=== PATIENT | male | born 1945 | race Caucasian/White ===

== ENCOUNTER 2017-10-07 22:06 | Emergency (ER) | payer MEDICARE, BC ==
[~2017-10-07] VITALS: Ht 177.8 cm; Wt 99.8 kg
--- NOTE | 2017-10-08 00:57 | NUR ---
PT IN BED. PT IS CONFUSED AND DISORIENTED. URINE HAS BEEN COLLECTED. NO SIGNS OR SYMPTOMS OF DISTRESS HAVE BEEN EXPRESSED OR WITNESSED AT THIS POINT.
[2017-10-08 01:27] LABS: *BILIRUBIN,URIN NEGATIVE (NEGATIVE); *BLOOD, URINE Trace-intact (NEGATIVE); *CLARITY,URINE SLIGHTLY CLOUDY (CLEAR); *COLOR,URINE YELLOW (YELLOW); *KETONES,URINE 1+ (NEGATIVE); *PROTEIN,URINE 2+ (NEGATIVE); *UROBILINOGEN,URINE 0.2 E.U./dl (NORMAL); LEUKOCYTE ESTERASE ,URINE 1+ (NEGATIVE); NITRITE, URINE NEGATIVE (NEGATIVE); UGLUCOSE NEGATIVE (NEGATIVE)
[2017-10-08 01:46] LABS: BACTERIA,URINE FEW /HPF (NONE SEEN); MUCUS,URINE FEW /LPF (0-FEW); SQUAMOUS EPITHELIAL CELL,UR MODERATE /HPF (NONE SEEN); WBC,URINE 50-80 /HPF (0-3); YEAST,URINE MANY /HPF (NONE SEEN)
[2017-10-08] MEDS ORDERED: SULFAMETH/TRIMETH 800/160 MG TABLET PO ONE (02:00)
[2017-10-08] MEDS ORDERED: PHENAZOPYRIDINE HCL 100 MG TABLET PO ONE (02:00)
[2017-10-08] MEDS ORDERED: PHENAZOPYRIDINE HCL 100 MG TABLET ONE (03:06)
[2017-10-08] MEDS ORDERED: SULFAMETH/TRIMETH 800/160 MG TABLET ONE (03:06)
--- NOTE | 2017-10-08 03:15 | NUR ---
PT IN BED, BUT READY FOR DC. CALLED DAUGHTER, RABIA, TO ARRANGE CHEST PAINTING LEADER. LEFT MESSAGE TO CALL BACK OR SIMPLY RETURN TO [facility] ER FOR CHEST PAINTING LEADER.
[2017-10-08] MEDS ORDERED: LORAZEPAM 1 MG TABLET ONE (04:05)
[2017-10-08] MEDS ORDERED: LORAZEPAM 0.5 MG TABLET PO ONE (04:15)
[2017-10-08] MEDS ORDERED: HALOPERIDOL LACTATE 5 MG/1 ML VIAL IM ONE (04:45)
[2017-10-08] MEDS ORDERED: HALOPERIDOL LACTATE 5 MG/1 ML VIAL ONE (04:45)
[2017-10-08] MEDS ORDERED: HALOPERIDOL 0.5 MG TABLET PO ONE (04:45)
--- NOTE | 2017-10-08 04:46 | NUR ---
CALLED DAUGHTER, RAIBA, AGAIN AND LEFT MESSAGE FOR HER TO PLEASE CALL BACK OR SIMPLY COME BACK TO [facility] TO PUBLIC HEALTH ADMINISTRATOR PATIENT. PATIENT IS READY FOR DISCHARGE.
--- NOTE | 2017-10-08 06:15 | NUR ---
PT IN BED. PT QUIETLY RESTING WITH EYES CLOSED. PT IS EASILY AROUSABLE. NO SIGNS OF DISTRESS WITNESSED AT THIS TIME.
--- NOTE | 2017-10-08 07:12 | NUR ---
PT IN BED. PT QUIETLY RESTING WITH EYES CLOSED. GAVE REPORT TO DAY SHIFT NURSE FANNY GORE.
--- NOTE | 2017-10-08 07:15 | NUR ---
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
--- NOTE | 2017-10-08 08:24 | NUR ---
Patient's private caregiver is now here. Patient discharged to home in stable conditon. Written and verbal after care instructions given to private caregiver. Patient's caregiver verbalizes understanding of instructions. Patient left ER with his own walker in slow steady gait.
== END 2017-10-08 08:24 | disposition home or self-care (01) ==
LOC: ER 22:10
DX: N39.0 Urinary tract infection, site not specified (principal); I10 Essential (primary) hypertension; Z88.5 Allergy status to narcotic agent
CPT/HCPCS: 72072; 72100; 87086; A4663; J1630

== ENCOUNTER 2017-10-12 21:16 | Inpatient (IN) | payer MEDICARE, BC ==
[~2017-10-12] VITALS: Ht 177.8 cm; Wt 98.4 kg
[2017-10-12] MEDS ORDERED: QUET25TA PO (22:36)
[2017-10-12] MEDS ORDERED: TRAZ-144 PO (22:36)
[2017-10-12] MEDS ORDERED: MULT-1119 PO (22:36)
[2017-10-12] MEDS ORDERED: ASCO500C18 PO (22:36)
[2017-10-12] MEDS ORDERED: HYDR25TA4 PO (22:36)
[2017-10-12] MEDS ORDERED: TAMS0.4C34 PO (22:36)
[2017-10-12] MEDS ORDERED: INSU100V7 SQ (22:36)
[2017-10-12] MEDS ORDERED: HYDR-3326 PO (22:36)
[2017-10-12] MEDS ORDERED: NAPR500T6 PO (22:36)
[2017-10-12] MEDS ORDERED: AMLO5TAB2 PO (22:36)
[2017-10-12 22:43] LABS: BASOPHILS # (AUTO) 0.1 K/uL (0.0-8.0); BASOPHILS % (AUTO) 1.4 % (0.0-2.0); EOSINOPHILS # (AUTO) 0.3 K/uL (0.0-0.7); EOSINOPHILS % (AUTO) 3.4 % (0.0-7.0); HEMATOCRIT 41.2 % (36.7-47.1); HEMOGLOBIN 13.7 g/dL (12.5-16.3); LYMPHOCYTES # (AUTO) 2.9 K/uL (20.0-40.0); LYMPHOCYTES % (AUTO) 30.8 % (20.5-51.5); MEAN CORPUSCULAR HEMOGLOBIN 28.8 uug (23.8-33.4); MEAN CORPUSCULAR HGB CONC 33 g/dL (32.5-36.3); MEAN CORPUSCULAR VOLUME 86.5 fL (73.0-96.2); MONOCYTES # (AUTO) 0.7 K/uL (2.0-10.0); MONOCYTES % (AUTO) 7.3 % (0.0-11.0); NEUTROPHILS # (AUTO) 5.4 K/uL (1.8-8.9); NEUTROPHILS % (AUTO) 57.1 % (38.5-71.5); PLATELET COUNT (AUTO) 246 K/uL (152-348); RED BLOOD CELL COUNT(AUTO) 4.76 MIL/uL (4.06-5.63); WHITE BLOOD COUNT (AUTO) 9.4 K/uL (3.6-10.2)
[2017-10-12 22:53] LABS: CARBON DIOXIDE 29 mmol/L (21-32); CHLORIDE 97 mmol/L (98-107); CREATININE 1.5 mg/dL (0.6-1.3); GLUCOSE 243 mg/dL (74-106); POTASSIUM 3.2 mmol/L (3.5-5.1); UREA NITROGEN, BLOOD 21 mg/dL (7-18)
[2017-10-12 22:59] LABS: ALANINE AMINOTRANSFERASE 13 U/L (16-63); ALKALINE PHOSPHATASE 85 U/L (50-136); ASPARTATE AMINOTRANSFERASE 11 U/L (15-37); BILIRUBIN,DIRECT 0.1 mg/dL (0.0-0.2); BILIRUBIN,TOTAL 0.3 mg/dL (0.2-1.0); TOTAL PROTEIN, SERUM 7.9 g/dL (6.4-8.2)
[2017-10-12 23:04] LABS: ETHANOL < 3 MG/DL (0-0)
[2017-10-12 23:06] LABS: THYROID STIMULATING HORMONE 0.874 mIU/mL (0.358-3.740)
[2017-10-12] MEDS ORDERED: LORAZEPAM 2 MG/1 ML VIAL ONE (23:07)
[2017-10-12] MEDS ORDERED: LORAZEPAM 2 MG/1 ML VIAL IV ONE (23:15)
--- NOTE | 2017-10-12 23:30 | NUR ---
Patient taken to CT via gurney with transporter. No acute distress noted. VSS.
[2017-10-13] MEDS ORDERED: LORAZEPAM 2 MG/1 ML VIAL ONE (00:11)
[2017-10-13] MEDS ORDERED: LORAZEPAM 2 MG/1 ML VIAL IV ONE (00:15)
[2017-10-13 00:16] LABS: *BILIRUBIN,URIN NEGATIVE (NEGATIVE); *BLOOD, URINE Trace-intact (NEGATIVE); *CLARITY,URINE SLIGHTLY CLOUDY (CLEAR); *COLOR,URINE YELLOW (YELLOW); *KETONES,URINE TRACE (NEGATIVE); *PROTEIN,URINE 2+ (NEGATIVE); *UROBILINOGEN,URINE 0.2 E.U./dl (NORMAL); LEUKOCYTE ESTERASE ,URINE TRACE (NEGATIVE); NITRITE, URINE NEGATIVE (NEGATIVE); PH,URINE 5.5 (5.0-8.0); UGLUCOSE TRACE (NEGATIVE)
[2017-10-13 00:37] LABS: *AMPHETAMINE, URINE NEGATIVE (NEGATIVE); *BARBITURATE, URINE NEGATIVE (NEGATIVE); *CANNABINOID, URINE NEGATIVE (NEGATIVE); *COCCAINE, URINE NEGATIVE (NEGATIVE); *OPIATE, URINE POSITIVE (NEGATIVE); *PHENCYCLIDINE SCREEN,URINE NEGATIVE (NEGATIVE)
[2017-10-13 00:46] LABS: BACTERIA,URINE NONE SEEN /HPF (NONE SEEN); MUCUS,URINE MANY /LPF (0-FEW); SQUAMOUS EPITHELIAL CELL,UR MODERATE /HPF (NONE SEEN); WBC,URINE 80-100 /HPF (0-3); YEAST,URINE MANY /HPF (NONE SEEN)
--- NOTE | 2017-10-13 00:59 | NUR ---
Patient resting in bed, no acute distress noted.
--- NOTE | 2017-10-13 02:20 | NUR ---
Luis Alberto BRITO at bedside for patient evaluation
--- NOTE | 2017-10-13 03:49 | NUR ---
Report given to Bette ESCOBEDO
--- NOTE | 2017-10-13 04:22 | NUR ---
Pt. admitted to MHU , under care of Dr. Chaidez/ Prem Belongs List completed
--- NOTE | 2017-10-13 04:30 | NUR ---
PATIENT ADMITTING V/S BP 151/83MMHG PULSE 79BPM, RESPIRATION 18 BREATHS/MIN O2SAT 99% ORAL TEMP. 97.8F. WILL CONTINUE TO MONITOR CLOSELY.
[2017-10-13] MEDS ORDERED: CEPHALEXIN MONOHYDRATE 500 MG CAPSULE ONE (04:42)
[2017-10-13] MEDS ORDERED: CEPHALEXIN MONOHYDRATE 500 MG CAPSULE PO STA (05:04)
--- NOTE | 2017-10-13 05:22 | NUR ---
AT APPROX 0415, ADMITTED 72 YEAR OLD MALE TO [facility] ON A 5150 HOLD FOR GD. PATIENT WAS BID CAREGIVER TO [facility] DUE TO LOWER BACK PAIN. PER CAREGIVER PT HAS BEEN HAVING MOOD SWINGS, AGITATION, SEVERALLY DEPRESSED, CONFUSION, DISORGANIZED BX THAT IS WORSE AT NIGHT FOR 2 WEEKS. HOLD STARTED ON 10/13/17 AT 0230 AND WILL END ON 10/16/17 AT 0230 FOR GD. PATIENT WAS MEDICALLY CLEARED [facility]; HOWEVER, URINE WAS POSITIVE FOR UTI. K WAS 3/2. HE WAS GIVEN KEFLEX 500MG PO AT 0511. HE ALSO RECEIVED ATIVAN 1MG IV YESTERDAY AL 2328 AND ATIVAN 2MG IV TODAY AT 0016. PATIENT NOTED A/O X 1. CONFUSED DISORGANIZED, HOWEVER, CALM AND COOPERATIVE WITH ADMISSION PROCESS. HE WAS UNABLE TO SIGN ADMISSION PAPER. POOR HISTORIAN FAIR INSIGHT AND JUDGMENT. SKIN ASSESSMENT: A RASH NOTED ON UPPER CHEST, A WELL-HEALED SURGICAL SCAR OF APPROX 5CM LONG IN RIGHT LOWER BACK AND FEW SUPERFICIAL SCRAPES ON HIS LEFT LOWER LEG ANTERIOR ASPECT. PT IS UNDER THE CARE OF DR. RAZO. WE WILL CONTINUE TO MONITOR.
[2017-10-13] MEDS ORDERED: CEPHALEXIN MONOHYDRATE 500 MG CAPSULE PO SCH (06:00)
[2017-10-13] MEDS ORDERED: ACETAMINOPHEN 325 MG TABLET PO PRN (06:45)
[2017-10-13] MEDS ORDERED: MAGNESIUM HYDROXIDE 30 ML LIQUID UDC PO PRN (06:45)
[2017-10-13] MEDS ORDERED: MAG HYDROX/AL HYDROX/SIMETH 30 ML LIQUID UDC PO PRN (06:45)
--- NOTE | 2017-10-13 07:00 | NUR ---
daughter rosy thompson was notify of father's admission to [facility].
[2017-10-13 07:30] VITALS: BP 173/103
[2017-10-13] MEDS: CEPHALEXIN MONOHYDRATE 500 MG CAPSULE PO SCH ×2 (09:32→17:19)
[2017-10-13] MEDS: HYDROCODONE/APAP 5-325MG TABLET PO PRN (13:05)
[2017-10-13] MEDS: CLONAZEPAM 0.5 MG TABLET PO PRN (13:06)
[2017-10-13] MEDS: AMLODIPINE 5 MG TABLET PO SCH (13:06)
--- NOTE | 2017-10-13 14:27 | NUR ---
Initial DC Plan: Patient currently lives at a board and care with his caregiver Devora [[address] [place] [address]; [phone]]. Per Devora, patient can return home when ready, but she thinks he may need a higher level of care. SW will follow up with MD, patient, and patient's caregiver to discuss most appropriate discharge plans. SW will form a safe and proper discharge.
--- NOTE | 2017-10-13 14:51 | NUR ---
Firearms Reporting: MICHELLE submitted Mental Health Report to [employer] on 10/13.
[2017-10-13 16:30] VITALS: BP 161/90
[2017-10-13] MEDS: CLONIDINE HCL 0.1 MG TABLET PO PRN (19:41)
--- NOTE | 2017-10-13 19:45 | NUR ---
RECEIVED PT IN THE MAIN HALLWAY SITTING IN A MICHI CHAIR NEAR THE NURSING STATION. HE WAS NOTED AWAKE A/O X 1. WITH NO CHANGES IN LOC. PATIENT ABLE TO AMBULATED WITH A FRONT WHEEL WALKER; HOWEVER, HE IS UNSTEADY GAIT. UPON INTERVIEW, PT WAS NOTED WITH DEPRESSED MOOD, BLUNTED AFFECTCRYING, HE STATED "I DON'T WANT TO BE A BURDEN TO ANYBODY". "I AM FEELING VERY SAD, PLEASE HELP ME, HELP ME." TEARS WERE SEEN. PT WAS REASSURED AND REDIRECTED. SAFETY EMPHASIS, PT WAS ABLE TO CFS. B/P IS 179/95 AND PULSE 81. PATIENT IN NO ACUTE DISTRESS. CATAPRES 0.1MG PO PRN WAS GIVEN FOR SBP>150MMHG. WE WILL CONTINUE TO MONITOR CLOSELY.
[2017-10-13] MEDS: TAMSULOSIN HCL 0.4 MG CAP.SR.24H PO SCH (20:07)
[2017-10-13] MEDS: TRAZODONE 50 MG TABLET PO SCH (20:07)
[2017-10-13] MEDS: QUETIAPINE FUMARATE 25 MG TABLET PO SCH (20:08)
[2017-10-13] MEDS: MIRTAZAPINE 15 MG TABLET PO SCH (20:08)
[2017-10-13] MEDS: INSULIN GLARGINE,HUM 300 UNITS/3 ML CARTRIDGE SQ SCH (20:54)
--- NOTE | 2017-10-13 21:00 | NUR ---
PATIENT ABLE TO COMPLY WITH WITH MEDICATION REGIMENT AND PLAN OF CARE. HE WAS NOTED CALM AND COOPERATIVE. SNACKS WERE PROVIDE. WILL CONTINUE TO MONITOR CLOSELY.
[2017-10-13 21:13] VITALS: BP 179/95
--- NOTE | 2017-10-13 21:30 | NUR ---
B/P WAS RECHECKED: B/P 161/95MMHG AND PULSE 83BPM/ PT IN NO ACUTE DISTRESS. WILL CONTINUE TO MONITOR.
[2017-10-13 22:13] VITALS: BP 161/95
[2017-10-13] MEDS: TEMAZEPAM 7.5 MG CAPSULE PO PRN (22:33)
--- NOTE | 2017-10-13 22:34 | NUR ---
PATIENT NOTED AWAKE, UNABLE TO FALL ASLEEP. HE DENIED PAIN OR DISCOMFORT AT THIS TIME. TEMAZEPAM 7.5MG PO PRN FOR INSOMNIA WAS OFFERED AND PATIENT ACCEPTED. WILL CONTINUE TO MONITOR CLOSELY.
[2017-10-13] MEDS ORDERED: DEXTROSE 50% 50 ML DISP.SYRIN IV PRN (23:30)
[2017-10-14 03:02] VITALS: BP 148/67
--- NOTE | 2017-10-14 03:03 | NUR ---
RECHECKED PT B/P 148/67 AND PULSE 66BPM. PATIENT ASLEEP IN NO DISTRESS.
[2017-10-14] MEDS: BLOOD SUGAR DIAGNOSTIC 1 EACH STRIP VI SCH ×5 (06:43→20:49)
--- NOTE | 2017-10-14 07:03 | NUR ---
patient slept for approx 5.30 hrs through the night. BS this am is 183. Pt on accuchecks now ACHS with sliding scale. will continue to monitor.
[2017-10-14 07:30] VITALS: BP 135/74
[2017-10-14] MEDS ORDERED: Medication Not On Formulary EA (Multivitamin (Multi Vitamin Daily) 1 EACH) PO SCH (09:00)
[2017-10-14] MEDS: AMLODIPINE 5 MG TABLET PO SCH (09:30)
[2017-10-14] MEDS: MULTIVITAMINS,THERAPEUTIC TABLET PO SCH (09:30)
[2017-10-14] MEDS: ASCORBIC ACID 500 MG TABLET PO SCH (09:30)
[2017-10-14] MEDS: CEPHALEXIN MONOHYDRATE 500 MG CAPSULE PO SCH ×2 (09:31→16:31)
[2017-10-14] MEDS: INSULIN REGULAR, HUMAN 300 UNIT/3 ML VIAL SQ PRN ×2 (12:25→16:47)
[2017-10-14] MEDS: HYDROCODONE/APAP 5-325MG TABLET PO PRN (12:52)
[2017-10-14 15:56] VITALS: BP 160/82
[2017-10-14] MEDS: CLONIDINE HCL 0.1 MG TABLET PO PRN (16:32)
[2017-10-14 20:00] VITALS: BP 158/89
[2017-10-14] MEDS: TAMSULOSIN HCL 0.4 MG CAP.SR.24H PO SCH (20:29)
[2017-10-14] MEDS: QUETIAPINE FUMARATE 25 MG TABLET PO SCH (20:29)
[2017-10-14] MEDS: MIRTAZAPINE 15 MG TABLET PO SCH (20:30)
[2017-10-14] MEDS: TRAZODONE 50 MG TABLET PO SCH (20:30)
[2017-10-14] MEDS: INSULIN GLARGINE,HUM 300 UNITS/3 ML CARTRIDGE SQ SCH (20:34)
[2017-10-14] MEDS ORDERED: CARVEDILOL 6.25 MG TABLET PO ONE (23:30)
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
[2017-10-15] MEDS: BLOOD SUGAR DIAGNOSTIC 1 EACH STRIP VI SCH ×4 (06:32→20:24)
[2017-10-15 07:07] LABS: BASOPHILS # (AUTO) 0.1 K/uL (0.0-8.0); BASOPHILS % (AUTO) 0.9 % (0.0-2.0); EOSINOPHILS # (AUTO) 0.4 K/uL (0.0-0.7); EOSINOPHILS % (AUTO) 4.5 % (0.0-7.0); HEMATOCRIT 36.8 % (36.7-47.1); HEMOGLOBIN 12.2 g/dL (12.5-16.3); LYMPHOCYTES # (AUTO) 2.7 K/uL (20.0-40.0); LYMPHOCYTES % (AUTO) 32.4 % (20.5-51.5); MEAN CORPUSCULAR HEMOGLOBIN 28.7 uug (23.8-33.4); MEAN CORPUSCULAR HGB CONC 33 g/dL (32.5-36.3); MEAN CORPUSCULAR VOLUME 86.9 fL (73.0-96.2); MONOCYTES # (AUTO) 0.6 K/uL (2.0-10.0); MONOCYTES % (AUTO) 7.7 % (0.0-11.0); NEUTROPHILS # (AUTO) 4.5 K/uL (1.8-8.9); NEUTROPHILS % (AUTO) 54.5 % (38.5-71.5); PLATELET COUNT (AUTO) 271 K/uL (152-348); RED BLOOD CELL COUNT(AUTO) 4.24 MIL/uL (4.06-5.63); WHITE BLOOD COUNT (AUTO) 8.2 K/uL (3.6-10.2)
[2017-10-15 07:17] LABS: ALANINE AMINOTRANSFERASE 12 U/L (16-63); ALKALINE PHOSPHATASE 73 U/L (50-136); ASPARTATE AMINOTRANSFERASE 7 U/L (15-37); BILIRUBIN,TOTAL 0.3 mg/dL (0.2-1.0); CARBON DIOXIDE 28 mmol/L (21-32); CHLORIDE 102 mmol/L (98-107); CREATINE KINASE, TOTAL 17 U/L (39-308); CREATININE 1.7 mg/dL (0.6-1.3); GLUCOSE 240 mg/dL (74-106); MAGNESIUM 1.9 mg/dL (1.8-2.4); PHOSPHOROUS 4.5 mg/dL (2.5-4.9); TOTAL PROTEIN, SERUM 6.8 g/dL (6.4-8.2); UREA NITROGEN, BLOOD 28 mg/dL (7-18)
[2017-10-15 07:21] LABS: POTASSIUM 2.8 mmol/L (3.5-5.1)
[2017-10-15] MEDS ORDERED: POTASSIUM CHLORIDE 20 MEQ TAB.PRT.SR PO STA (07:25)
[2017-10-15 07:30] VITALS: BP 121/64
[2017-10-15] MEDS: MULTIVITAMINS,THERAPEUTIC TABLET PO SCH (08:59)
[2017-10-15] MEDS: CARVEDILOL 6.25 MG TABLET PO SCH ×2 (08:59→20:06)
[2017-10-15] MEDS: ASCORBIC ACID 500 MG TABLET PO SCH (09:00)
[2017-10-15] MEDS: CEPHALEXIN MONOHYDRATE 500 MG CAPSULE PO SCH ×2 (09:00→17:00)
[2017-10-15] MEDS: AMLODIPINE 5 MG TABLET PO SCH (09:00)
[2017-10-15] MEDS: HYDROCODONE/APAP 5-325MG TABLET PO PRN ×2 (09:04→22:53)
[2017-10-15] MEDS: INSULIN REGULAR, HUMAN 300 UNIT/3 ML VIAL SQ PRN ×3 (12:24→20:27)
[2017-10-15 15:19] LABS: *BILIRUBIN,URIN NEGATIVE (NEGATIVE); *BLOOD, URINE NEGATIVE (NEGATIVE); *CLARITY,URINE CLEAR (CLEAR); *COLOR,URINE YELLOW (YELLOW); *KETONES,URINE NEGATIVE (NEGATIVE); *PROTEIN,URINE 1+ (NEGATIVE); *UROBILINOGEN,URINE 0.2 E.U./dl (NORMAL); LEUKOCYTE ESTERASE ,URINE 1+ (NEGATIVE); NITRITE, URINE NEGATIVE (NEGATIVE); PH,URINE 5.5 (5.0-8.0); UGLUCOSE NEGATIVE (NEGATIVE)
[2017-10-15 15:25] LABS: BACTERIA,URINE FEW /HPF (NONE SEEN); RBC,URINE 0-3 /HPF (0-3); SQUAMOUS EPITHELIAL CELL,UR FEW /HPF (NONE SEEN); WBC,URINE 20-50 /HPF (0-3)
[2017-10-15 15:49] VITALS: BP 159/88
[2017-10-15] MEDS: CLONIDINE HCL 0.1 MG TABLET PO PRN (17:01)
--- NOTE | 2017-10-15 17:44 | NUR ---
patient remains depressed and in bed , affec flat and mood somatic with c/o back pain continue to monitor
[2017-10-15 19:40] VITALS: BP 138/62
[2017-10-15] MEDS: ATORVASTATIN 10 MG TABLET PO SCH (20:05)
[2017-10-15] MEDS: QUETIAPINE FUMARATE 25 MG TABLET PO SCH (20:05)
[2017-10-15] MEDS: TRAZODONE 50 MG TABLET PO SCH (20:05)
[2017-10-15] MEDS: MIRTAZAPINE 15 MG TABLET PO SCH (20:05)
[2017-10-15] MEDS: TAMSULOSIN HCL 0.4 MG CAP.SR.24H PO SCH (20:06)
[2017-10-15] MEDS: INSULIN GLARGINE,HUM 300 UNITS/3 ML CARTRIDGE SQ SCH (20:28)
[2017-10-15] MEDS: Z GUARD REMEDY PASTE 57 GM TUBE TOP SCH (20:29)
[2017-10-15] MEDS: TEMAZEPAM 7.5 MG CAPSULE PO PRN (22:19)
--- NOTE | 2017-10-15 22:20 | NUR ---
gps: patient unable to sleep. RESTORIL 7.5 mg po given.
--- NOTE | 2017-10-15 22:54 | NUR ---
PATIENT C/O BACK PAIN NORCO 5/325 MG PO GIVEN.
[2017-10-15] MEDS ORDERED: DEXTROSE 50% 50 ML DISP.SYRIN IV PRN (23:00)
--- NOTE | 2017-10-15 23:22 | NUR ---
PATIENT SLEEPING EYE CLOSE PRN EFFECTIVE FOR SLEEP.
--- NOTE | 2017-10-15 23:54 | NUR ---
PATIENT STATED FEELING BETTER NOW. PRN EFFECTIVE.
[2017-10-16] MEDS: BLOOD SUGAR DIAGNOSTIC 1 EACH STRIP VI SCH ×4 (06:08→20:13)
--- NOTE | 2017-10-16 06:18 | NUR ---
REMAIN CALM AND COOPERATIVE.BLOOD SUGAR 130MG/DL THIS MORNING. SLEPT 05:30 HRS THROUGH THE NIGHT AFTER SLEEPING MEDICATION GIVEN. ASSISTED WITH ADL'S. NO BEHAVIOR PROBLEM NOTED.
[2017-10-16 07:30] VITALS: BP 147/86
[2017-10-16] MEDS: MULTIVITAMINS,THERAPEUTIC TABLET PO SCH (09:17)
[2017-10-16] MEDS: ASCORBIC ACID 500 MG TABLET PO SCH (09:17)
[2017-10-16] MEDS: CEPHALEXIN MONOHYDRATE 500 MG CAPSULE PO SCH ×2 (09:17→17:14)
[2017-10-16] MEDS: AMLODIPINE 5 MG TABLET PO SCH (09:17)
[2017-10-16] MEDS: CARVEDILOL 6.25 MG TABLET PO SCH ×2 (09:18→20:12)
[2017-10-16] MEDS: Z GUARD REMEDY PASTE 57 GM TUBE TOP SCH ×2 (09:18→20:16)
[2017-10-16] MEDS: INSULIN REGULAR, HUMAN 300 UNIT/3 ML VIAL SQ PRN ×2 (12:29→17:23)
[2017-10-16] MEDS: HYDROCODONE/APAP 5-325MG TABLET PO PRN (12:48)
[2017-10-16] MEDS: CLONAZEPAM 0.5 MG TABLET PO PRN (14:19)
[2017-10-16 15:38] VITALS: BP 122/71
[2017-10-16] MEDS: ATORVASTATIN 10 MG TABLET PO SCH (20:11)
[2017-10-16] MEDS: QUETIAPINE FUMARATE 25 MG TABLET PO SCH (20:11)
[2017-10-16] MEDS: TRAZODONE 50 MG TABLET PO SCH (20:11)
[2017-10-16] MEDS: MIRTAZAPINE 15 MG TABLET PO SCH (20:11)
[2017-10-16] MEDS: TAMSULOSIN HCL 0.4 MG CAP.SR.24H PO SCH (20:11)
[2017-10-16] MEDS: INSULIN GLARGINE,HUM 300 UNITS/3 ML CARTRIDGE SQ SCH (20:15)
[2017-10-16 20:26] VITALS: BP 155/68
[2017-10-17] MEDS: CLONAZEPAM 0.5 MG TABLET PO PRN ×2 (00:29→13:18)
--- NOTE | 2017-10-17 00:30 | NUR ---
GPS: PATIENT UNABLE TO SLEEP. KLONOPIN 0.5 MG PO GIVEN.
--- NOTE | 2017-10-17 01:30 | NUR ---
GPS: PATIENT SLEEPING EYE CLOSE. PRN EFFECTIVE FOR SLEEP.
--- NOTE | 2017-10-17 06:32 | NUR ---
GPS: REMAIN CALM AND COOPERATIVE WITH MEDICATIONS AND CARE. SLEPT 7:30 HRS THROUGH THE NIGHT. ASSISTED WITH ADL'S. NO AGITATION NOTED.
[2017-10-17] MEDS: BLOOD SUGAR DIAGNOSTIC 1 EACH STRIP VI SCH ×4 (06:42→20:08)
[2017-10-17 07:30] VITALS: BP 151/88
[2017-10-17 08:06] LABS: A/G RATIO 0.9 (0.7-1.7); ALBUMIN 2.9 g/dL (2.9-4.4); ALPHA-1-GLOBULIN 0.2 g/dL (0.0-0.4); ALPHA-2-GLOBULIN 0.6 g/dL (0.4-1.0); GAMMA GLOBULIN 1.3 g/dL (0.4-1.8); GLOBULIN, TOTAL 3.1 g/dL (2.2-3.9); M-SPIKE Not Observed g/dL (Not Observed)
[2017-10-17] MEDS: CEPHALEXIN MONOHYDRATE 500 MG CAPSULE PO SCH ×2 (09:00→16:36)
[2017-10-17] MEDS: AMLODIPINE 5 MG TABLET PO SCH (09:00)
[2017-10-17] MEDS: ASCORBIC ACID 500 MG TABLET PO SCH (09:00)
[2017-10-17] MEDS: Z GUARD REMEDY PASTE 57 GM TUBE TOP SCH ×2 (09:00→20:10)
[2017-10-17] MEDS: MULTIVITAMINS,THERAPEUTIC TABLET PO SCH (09:00)
[2017-10-17] MEDS: CARVEDILOL 6.25 MG TABLET PO SCH ×2 (09:00→20:08)
[2017-10-17] MEDS: HYDROCODONE/APAP 5-325MG TABLET PO PRN ×2 (14:26→23:14)
[2017-10-17 15:12] VITALS: BP 156/64
[2017-10-17] MEDS: INSULIN REGULAR, HUMAN 300 UNIT/3 ML VIAL SQ PRN (16:38)
[2017-10-17 19:45] VITALS: BP 143/71
[2017-10-17] MEDS: INSULIN GLARGINE,HUM 300 UNITS/3 ML CARTRIDGE SQ SCH (20:03)
[2017-10-17] MEDS: INSULIN REGULAR, HUMAN 300 UNITS/3 ML VIAL SQ PRN (20:04)
[2017-10-17] MEDS: MIRTAZAPINE 15 MG TABLET PO SCH (20:07)
[2017-10-17] MEDS: TRAZODONE 50 MG TABLET PO SCH (20:07)
[2017-10-17] MEDS: ATORVASTATIN 10 MG TABLET PO SCH (20:07)
[2017-10-17] MEDS: TAMSULOSIN HCL 0.4 MG CAP.SR.24H PO SCH (20:07)
[2017-10-17] MEDS: QUETIAPINE FUMARATE 25 MG TABLET PO SCH (20:08)
[2017-10-17] MEDS: TEMAZEPAM 7.5 MG CAPSULE PO PRN (22:07)
[2017-10-18] MEDS: BLOOD SUGAR DIAGNOSTIC 1 EACH STRIP VI SCH ×4 (06:39→21:10)
[2017-10-18 07:30] VITALS: BP 140/83
[2017-10-18 07:35] LABS: CARBON DIOXIDE 29 mmol/L (21-32); CHLORIDE 103 mmol/L (98-107); CREATININE 1.5 mg/dL (0.6-1.3); GLUCOSE 101 mg/dL (74-106); POTASSIUM 3.1 mmol/L (3.5-5.1); UREA NITROGEN, BLOOD 32 mg/dL (7-18)
[2017-10-18] MEDS: CARVEDILOL 6.25 MG TABLET PO SCH ×2 (08:42→20:43)
[2017-10-18] MEDS: CEPHALEXIN MONOHYDRATE 500 MG CAPSULE PO SCH ×2 (08:52→17:58)
[2017-10-18] MEDS: MULTIVITAMINS,THERAPEUTIC TABLET PO SCH (08:52)
[2017-10-18] MEDS: AMLODIPINE 5 MG TABLET PO SCH (08:52)
[2017-10-18] MEDS: ASCORBIC ACID 500 MG TABLET PO SCH (08:54)
[2017-10-18] MEDS: Z GUARD REMEDY PASTE 57 GM TUBE TOP SCH ×2 (08:56→21:09)
[2017-10-18] MEDS ORDERED: POTASSIUM CHLORIDE 20 MEQ TAB.PRT.SR PO ONE (09:00)
[2017-10-18] MEDS: INSULIN REGULAR, HUMAN 300 UNIT/3 ML VIAL SQ PRN ×2 (12:28→16:53)
[2017-10-18] MEDS: CLONAZEPAM 0.5 MG TABLET PO PRN (12:55)
[2017-10-18 16:21] VITALS: BP 161/90
[2017-10-18] MEDS: HYDROCODONE/APAP 5-325MG TABLET PO PRN (16:57)
--- NOTE | 2017-10-18 18:34 | NUR ---
RECEIVED Pt IN BED, AWAKE, A/O X 1. Pt IS COOPERATIVE, COMPLIANT WITH MEDS AND CARE STAFF, BUT EXHIBITS CONFUSION AND HAS EPISODES OF RANDOM YELLING, STATING, "I WANT TO GO HOME." Pt IS AMBULATORY WITH MINIMUM ASSISTANCE AND FWW. Pt REFUSED PHYSICAL THERAPY IN THE MORNING. POTASSIUM 40 MEQ GIVEN DUE TO LOW POTASSIUM LEVEL OF 3.1, Pt COMPLAINED OF PAIN LEVEL OF 9/10 AND WAS GIVEN NORCO 5-325 MG PO PRN @ 1657. Pt REPORTED IMPROVEMENT IN PAIN UPON RE-ASSESSMENT.
[2017-10-18 20:07] VITALS: BP 146/76
[2017-10-18] MEDS: TRAZODONE 50 MG TABLET PO SCH (20:39)
[2017-10-18] MEDS: QUETIAPINE FUMARATE 25 MG TABLET PO SCH (20:39)
[2017-10-18] MEDS: ATORVASTATIN 10 MG TABLET PO SCH (20:39)
[2017-10-18] MEDS: MIRTAZAPINE 15 MG TABLET PO SCH (20:40)
[2017-10-18] MEDS: TAMSULOSIN HCL 0.4 MG CAP.SR.24H PO SCH (20:41)
[2017-10-18] MEDS: INSULIN GLARGINE,HUM 300 UNITS/3 ML CARTRIDGE SQ SCH (20:47)
[2017-10-18] MEDS: INSULIN REGULAR, HUMAN 300 UNITS/3 ML VIAL SQ PRN (20:51)
--- NOTE | 2017-10-18 22:00 | NUR ---
received to care, lying in bed, appearing anxious, but pleasant upon approach. was assisted up in the hasmukh chair, at his request. compliant with medications, and staff direction. as of 2199, he remains awake, watching tv. yells out intermittently. all needs provided for. will continue to monitor closely
[2017-10-18] MEDS: TEMAZEPAM 7.5 MG CAPSULE PO PRN (22:12)
--- NOTE | 2017-10-18 22:12 | NUR ---
PRN restoril, given, for insomnia, and assisted back to bed.
--- NOTE | 2017-10-18 23:00 | NUR ---
appears to be asleep. no distress noted. will continue to monitor closely.
--- NOTE | 2017-10-19 06:00 | NUR ---
slept 7 hours. continues to sleep. no distress noted.
[2017-10-19] MEDS: BLOOD SUGAR DIAGNOSTIC 1 EACH STRIP VI SCH ×4 (06:27→20:45)
[2017-10-19 07:30] VITALS: BP 143/72
[2017-10-19] MEDS: CEPHALEXIN MONOHYDRATE 500 MG CAPSULE PO SCH (08:27)
[2017-10-19] MEDS: MULTIVITAMINS,THERAPEUTIC TABLET PO SCH (08:27)
[2017-10-19] MEDS: ASCORBIC ACID 500 MG TABLET PO SCH (08:28)
[2017-10-19] MEDS: CARVEDILOL 6.25 MG TABLET PO SCH ×2 (08:28→20:45)
[2017-10-19] MEDS: AMLODIPINE 5 MG TABLET PO SCH (08:28)
[2017-10-19] MEDS: Z GUARD REMEDY PASTE 57 GM TUBE TOP SCH ×2 (08:29→20:45)
[2017-10-19] MEDS: INSULIN REGULAR, HUMAN 300 UNIT/3 ML VIAL SQ PRN ×2 (12:17→17:38)
[2017-10-19] MEDS: CLONAZEPAM 0.5 MG TABLET PO PRN (13:13)
[2017-10-19 20:10] VITALS: BP 155/84
[2017-10-19] MEDS: QUETIAPINE FUMARATE 25 MG TABLET PO SCH (20:35)
[2017-10-19] MEDS: TRAZODONE 50 MG TABLET PO SCH (20:35)
[2017-10-19] MEDS: MIRTAZAPINE 15 MG TABLET PO SCH (20:36)
[2017-10-19] MEDS: ATORVASTATIN 10 MG TABLET PO SCH (20:36)
[2017-10-19] MEDS: TAMSULOSIN HCL 0.4 MG CAP.SR.24H PO SCH (20:36)
[2017-10-19] MEDS: INSULIN GLARGINE,HUM 300 UNITS/3 ML CARTRIDGE SQ SCH (20:48)
[2017-10-19] MEDS: INSULIN REGULAR, HUMAN 300 UNITS/3 ML VIAL SQ PRN (20:54)
--- NOTE | 2017-10-19 22:00 | NUR ---
received to care, lying in bed, appearing anxious, but pleasant upon approach. yells out intermittently,for no apparent reason, and requires frequent redirection. compliant with medications, and staff direction. as of 2199, he remains awake, yelling out intermittently. all needs provided for. will continue to monitor closely
[2017-10-19] MEDS ORDERED: POTASSIUM CHLORIDE 20 MEQ TAB.PRT.SR PO SCH (22:30)
[2017-10-19] MEDS: TEMAZEPAM 7.5 MG CAPSULE PO PRN (22:34)
--- NOTE | 2017-10-19 22:34 | NUR ---
remains awake, and yelling. PRN restoril was given, at this time, for insomnia. will continue to monitor closely.
[2017-10-19] MEDS: HYDROCODONE/APAP 5-325MG TABLET PO PRN (23:24)
--- NOTE | 2017-10-19 23:24 | NUR ---
remains awake, and yelling. states that he has right thigh pain 03/09. PRN norco was given at this time. will continue to monitor closely.
[2017-10-20] MEDS: CLONAZEPAM 0.5 MG TABLET PO PRN (00:32)
--- NOTE | 2017-10-20 00:32 | NUR ---
pt remains awake, restless, and yelling intermittently. stated he was anxious about being discharged, tomorrow. reassurance and emotional support was provided. also, he was attempting to climb out of bed; pt was assisted up in the hasmukh chair for safety. placed at the nurses station, and given PRN klonopin. kept warm and comfortable. will continue to monitor closely.
--- NOTE | 2017-10-20 06:00 | NUR ---
slept 2.5 hours. continues to sleep. no distress noted.
[2017-10-20] MEDS: BLOOD SUGAR DIAGNOSTIC 1 EACH STRIP VI SCH ×2 (06:32→11:56)
[2017-10-20 07:30] VITALS: BP 110/57
[2017-10-20 07:30] LABS: CARBON DIOXIDE 29 mmol/L (21-32); CHLORIDE 105 mmol/L (98-107); CREATININE 1.6 mg/dL (0.6-1.3); GLUCOSE 120 mg/dL (74-106); POTASSIUM 3.8 mmol/L (3.5-5.1); UREA NITROGEN, BLOOD 33 mg/dL (7-18)
[2017-10-20] MEDS: CARVEDILOL 6.25 MG TABLET PO SCH ×2 (09:00→13:22)
[2017-10-20] MEDS: AMLODIPINE 5 MG TABLET PO SCH ×2 (09:00→13:24)
[2017-10-20] MEDS: Z GUARD REMEDY PASTE 57 GM TUBE TOP SCH (09:14)
[2017-10-20] MEDS: ASCORBIC ACID 500 MG TABLET PO SCH (09:16)
[2017-10-20] MEDS: MULTIVITAMINS,THERAPEUTIC TABLET PO SCH (09:16)
--- NOTE | 2017-10-20 09:37 | NUR ---
DC Note: Patient will be discharged to [facility] [[address] [place] [address]; ] via ambulance at 1pm. SW spoke with Richard from [facility] to confirm discharge plans. Patient is aware and agreeable to discharge plans. Patient's son Fermin [[phone]] is aware and agreeable to discharge plans. Patient will follow up with Dr. Chaidez (psychiatrist) and Dr. Gallito Diehl (sub assembly team worker) at the facility.
[2017-10-20] MEDS: INSULIN REGULAR, HUMAN 300 UNIT/3 ML VIAL SQ PRN (11:58)
[2017-10-20 13:24] VITALS: BP 174/88
--- NOTE | 2017-10-20 13:25 | NUR ---
dc note: pt's bp is 174/88, pulse 64, o2 sat is 95 on RA, respirations 20. Skipped am blood pressure meds due to low bp in am. Administered the norvasc and coreg on d/c due to high blood pressure. Advised FANNY Cao at [facility] that the bp meds were given later in a day, ok to transfer per Kiley. Pt is calm and cooperative. No distress noted. All safety needs are met. Report given. Addendum: 10/20/17 at 1852 by ANG GOFF RN PER PT STATEMENT "I REVCEIVED BOTH, PNEUMO AND FLU SHOT" ADVISED THE SNF NURSE
== END 2017-10-20 13:30 | DRG 885 ==
LOC: ER 21:19 → GPS 10-13 04:08
PROVIDERS: ADMIT Psychiatry & Neurology Psychiatry; ATTEND Internal Medicine
DX: F33.2 Major depressive disorder, recurrent severe without psychotic features (principal); N17.0 Acute kidney failure with tubular necrosis; E11.65 Type 2 diabetes mellitus with hyperglycemia; I50.33 Acute on chronic diastolic (congestive) heart failure; I13.0 Hypertensive heart and chronic kidney disease with heart failure and stage 1 through stage 4 chronic kidney disease, or unspecified chronic kidney disease; N30.90 Cystitis, unspecified without hematuria; E11.22 Type 2 diabetes mellitus with diabetic chronic kidney disease; E66.9 Obesity, unspecified; Z68.31 Body mass index [BMI] 31.0-31.9, adult; Z71.3 Dietary counseling and surveillance; I25.10 Atherosclerotic heart disease of native coronary artery without angina pectoris; N18.2 Chronic kidney disease, stage 2 (mild); Z95.1 Presence of aortocoronary bypass graft; Z79.4 Long term (current) use of insulin; Z87.440 Personal history of urinary (tract) infections; N40.0 Benign prostatic hyperplasia without lower urinary tract symptoms; Z86.718 Personal history of other venous thrombosis and embolism; Z87.81 Personal history of (healed) traumatic fracture; K40.20 Bilateral inguinal hernia, without obstruction or gangrene, not specified as recurrent; Z91.81 History of falling; Z79.899 Other long term (current) drug therapy; E87.6 Hypokalemia; G89.29 Other chronic pain; M54.5 Low back pain; R10.2 Pelvic and perineal pain; M19.90 Unspecified osteoarthritis, unspecified site
CPT/HCPCS: 36415; 71045; 76770; 80307; 83735; 83970; 84100; 84155; 84165; 84443; 85025; 85730; 87086; 93005; 93307; 97116; 97530; A4663; G0480; J1815; J2060

== ENCOUNTER 2017-10-22 19:43 | Inpatient (IN) | payer MEDICARE, BC ==
[~2017-10-22] VITALS: Ht 177.8 cm; Wt 98.9 kg
[~2017-10-22 19:43] MED LIST: AMLO5TAB2 PO; ASCO500C18 PO; HYDR-3326 PO; HYDR25TA4 PO; INSU100V7 SQ; MULT-1119 PO; TAMS0.4C34 PO
[2017-10-22] MEDS ORDERED: OLANZAPINE 10 MG VIAL IM ONE ×4 (20:05→21:33)
[2017-10-22] MEDS ORDERED: LORAZEPAM 2 MG/1 ML VIAL ONE (20:06)
[2017-10-22] MEDS ORDERED: LORAZEPAM 2 MG/1 ML VIAL IM ONE (20:15)
[2017-10-22 21:05] LABS: BASOPHILS # (AUTO) 0.1 K/uL (0.0-8.0); BASOPHILS % (AUTO) 1.2 % (0.0-2.0); EOSINOPHILS # (AUTO) 0.3 K/uL (0.0-0.7); EOSINOPHILS % (AUTO) 3.4 % (0.0-7.0); HEMATOCRIT 39.9 % (36.7-47.1); HEMOGLOBIN 13.3 g/dL (12.5-16.3); LYMPHOCYTES # (AUTO) 2.5 K/uL (20.0-40.0); LYMPHOCYTES % (AUTO) 31.2 % (20.5-51.5); MEAN CORPUSCULAR HEMOGLOBIN 29.1 uug (23.8-33.4); MEAN CORPUSCULAR HGB CONC 33 g/dL (32.5-36.3); MEAN CORPUSCULAR VOLUME 87.4 fL (73.0-96.2); MONOCYTES # (AUTO) 0.6 K/uL (2.0-10.0); MONOCYTES % (AUTO) 7.1 % (0.0-11.0); NEUTROPHILS # (AUTO) 4.5 K/uL (1.8-8.9); NEUTROPHILS % (AUTO) 57.1 % (38.5-71.5); PLATELET COUNT (AUTO) 272 K/uL (152-348); RED BLOOD CELL COUNT(AUTO) 4.56 MIL/uL (4.06-5.63); WHITE BLOOD COUNT (AUTO) 7.9 K/uL (3.6-10.2)
[2017-10-22 21:16] LABS: CARBON DIOXIDE 29 mmol/L (21-32); CHLORIDE 104 mmol/L (98-107); CREATININE 1.8 mg/dL (0.6-1.3); POTASSIUM 3.9 mmol/L (3.5-5.1); UREA NITROGEN, BLOOD 35 mg/dL (7-18)
[2017-10-22 21:19] LABS: GLUCOSE 301 mg/dL (74-106)
[2017-10-22 21:21] LABS: ETHANOL < 3 MG/DL (0-0)
[2017-10-22 21:28] LABS: ALANINE AMINOTRANSFERASE 23 U/L (16-63); ALKALINE PHOSPHATASE 90 U/L (50-136); ASPARTATE AMINOTRANSFERASE 14 U/L (15-37); BILIRUBIN,DIRECT 0.1 mg/dL (0.0-0.2); BILIRUBIN,TOTAL 0.3 mg/dL (0.2-1.0); TOTAL PROTEIN, SERUM 7.7 g/dL (6.4-8.2)
[2017-10-22] MEDS ORDERED: diphenhydrAMINE 50 MG/1 ML VIAL IM ONE (21:30)
[2017-10-22] MEDS ORDERED: diphenhydrAMINE 50 MG/1 ML VIAL ONE (21:32)
[2017-10-22 21:37] LABS: *BILIRUBIN,URIN NEGATIVE (NEGATIVE); *BLOOD, URINE NEGATIVE (NEGATIVE); *COLOR,URINE YELLOW (YELLOW); *KETONES,URINE TRACE (NEGATIVE); *PROTEIN,URINE 1+ (NEGATIVE); *UROBILINOGEN,URINE 0.2 E.U./dl (NORMAL); NITRITE, URINE NEGATIVE (NEGATIVE)
[2017-10-22 21:39] LABS: THYROID STIMULATING HORMONE 1.428 mIU/mL (0.358-3.740)
[2017-10-22 21:49] LABS: *AMPHETAMINE, URINE NEGATIVE (NEGATIVE); *BARBITURATE, URINE NEGATIVE (NEGATIVE); *CANNABINOID, URINE NEGATIVE (NEGATIVE); *COCCAINE, URINE NEGATIVE (NEGATIVE); *OPIATE, URINE POSITIVE (NEGATIVE); *PHENCYCLIDINE SCREEN,URINE NEGATIVE (NEGATIVE)
[2017-10-22 21:51] LABS: *CLARITY,URINE HAZY (CLEAR); LEUKOCYTE ESTERASE ,URINE 1+ (NEGATIVE); UGLUCOSE 2+ (NEGATIVE)
[2017-10-22 21:52] LABS: MUCUS,URINE MANY /LPF (0-FEW); SQUAMOUS EPITHELIAL CELL,UR FEW /HPF (NONE SEEN); WBC,URINE 20-50 /HPF (0-3); YEAST,URINE MODERATE /HPF (NONE SEEN)
[2017-10-22] MEDS ORDERED: CEPHALEXIN MONOHYDRATE 500 MG CAPSULE PO ONE (22:00)
[2017-10-22] MEDS ORDERED: INSULIN REGULAR, HUMAN 1,000 UNITS/10 ML VIAL SUBCUT ONE (22:00)
[2017-10-22] MEDS ORDERED: TRAZ-144 PO (22:02)
[2017-10-22] MEDS ORDERED: MAGN400O6 PO (22:02)
[2017-10-22] MEDS ORDERED: BLOO-140 IN (22:02)
[2017-10-22] MEDS ORDERED: CARV6.25 PO (22:02)
[2017-10-22] MEDS ORDERED: CLON0.1T PO (22:02)
[2017-10-22] MEDS ORDERED: CRANBERRY PO (22:02)
[2017-10-22] MEDS ORDERED: ACET325T53 PO (22:02)
[2017-10-22] MEDS ORDERED: TEMA7.5C2 PO (22:02)
[2017-10-22] MEDS ORDERED: CLON0.5T PO (22:02)
[2017-10-22] MEDS ORDERED: BISA10SU12 RC (22:02)
[2017-10-22] MEDS ORDERED: QUET50TA PO (22:02)
[2017-10-22] MEDS ORDERED: POTA-88 PO (22:02)
[2017-10-22] MEDS ORDERED: NA P133E RC (22:02)
[2017-10-22] MEDS ORDERED: ATOR10TA PO (22:02)
[2017-10-22] MEDS ORDERED: MIRT15TA PO (22:02)
[2017-10-22] MEDS ORDERED: CEPHALEXIN MONOHYDRATE 500 MG CAPSULE ONE (22:05)
[2017-10-22] MEDS ORDERED: INSULIN REGULAR, HUMAN 300 UNIT/3 ML VIAL ONE (22:06)
[2017-10-23] MEDS ORDERED: MAG HYDROX/AL HYDROX/SIMETH 30 ML LIQUID UDC PO PRN (00:15)
[2017-10-23] MEDS ORDERED: CLONAZEPAM 0.5 MG TABLET PO SCH (00:15)
[2017-10-23] MEDS ORDERED: MAGNESIUM HYDROXIDE 30 ML LIQUID UDC PO PRN ×2 (00:15→11:15)
[2017-10-23] MEDS: TEMAZEPAM 7.5 MG CAPSULE PO PRN (00:38)
[2017-10-23] MEDS: ACETAMINOPHEN 325 MG TABLET PO PRN (03:03)
[2017-10-23] MEDS: CLONAZEPAM 0.5 MG TABLET PO PRN ×2 (03:03→16:43)
[2017-10-23 07:30] VITALS: BP 133/66
[2017-10-23] MEDS ORDERED: DEXTROSE 50% 50 ML DISP.SYRIN IV PRN (08:00)
[2017-10-23] MEDS: INSULIN REGULAR, HUMAN 300 UNITS/3 ML VIAL SQ PRN (08:23)
[2017-10-23] MEDS: BLOOD SUGAR DIAGNOSTIC 1 EACH STRIP VI SCH ×4 (08:23→21:00)
[2017-10-23] MEDS ORDERED: BISACODYL 10 MG SUPP.RECT RC PRN (11:15)
[2017-10-23] MEDS: AMLODIPINE 5 MG TABLET PO SCH (11:15)
[2017-10-23] MEDS ORDERED: HYDROCODONE/APAP 5-325MG TABLET PO PRN (11:15)
[2017-10-23] MEDS ORDERED: FLEET ENEMA 133 ML BOTTLE RC PRN (11:15)
[2017-10-23] MEDS: CARVEDILOL 6.25 MG TABLET PO SCH ×2 (11:15→17:04)
[2017-10-23] MEDS ORDERED: CLONIDINE HCL 0.1 MG TABLET PO PRN (11:15)
[2017-10-23] MEDS ORDERED: ACETAMINOPHEN 325 MG TABLET PO PRN (11:15)
[2017-10-23] MEDS: CEPHALEXIN MONOHYDRATE 500 MG CAPSULE PO SCH ×2 (11:30→21:00)
[2017-10-23] MEDS: INSULIN REGULAR, HUMAN 300 UNIT/3 ML VIAL SQ PRN ×2 (11:57→16:47)
[2017-10-23] MEDS ORDERED: OLANZAPINE 10 MG VIAL IM STA (14:13)
[2017-10-23] MEDS ORDERED: diphenhydrAMINE 50 MG/1 ML VIAL IM STA (14:13)
[2017-10-23] MEDS ORDERED: LORAZEPAM 2 MG/1 ML VIAL IM STA (14:13)
[2017-10-23] MEDS: DIVALPROEX 125 MG TABLET.DR PO SCH ×2 (14:19→16:42)
[2017-10-23 15:35] VITALS: BP 169/83
[2017-10-23 20:30] VITALS: BP 148/72
[2017-10-23] MEDS: ATORVASTATIN 10 MG TABLET PO SCH (21:00)
[2017-10-23] MEDS: TAMSULOSIN HCL 0.4 MG CAP.SR.24H PO SCH (21:00)
[2017-10-23] MEDS: MIRTAZAPINE 15 MG TABLET PO SCH (21:00)
[2017-10-23] MEDS: OLANZAPINE ZYDIS 5 MG TAB.RAPDIS PO SCH (21:00)
[2017-10-24] MEDS: BLOOD SUGAR DIAGNOSTIC 1 EACH STRIP VI SCH ×4 (07:38→20:20)
[2017-10-24 08:00] VITALS: BP 139/63
[2017-10-24] MEDS: CARVEDILOL 6.25 MG TABLET PO SCH ×2 (08:00→17:03)
[2017-10-24] MEDS: AMLODIPINE 5 MG TABLET PO SCH ×2 (08:11→14:41)
[2017-10-24] MEDS: DIVALPROEX 125 MG TABLET.DR PO SCH ×3 (08:11→16:09)
[2017-10-24] MEDS: CEPHALEXIN MONOHYDRATE 500 MG CAPSULE PO SCH ×3 (08:11→20:31)
[2017-10-24] MEDS: ASCORBIC ACID 500 MG TABLET PO SCH ×2 (08:12→14:41)
[2017-10-24] MEDS: MULTIVITAMINS,THERAPEUTIC TABLET PO SCH ×2 (08:12→14:41)
[2017-10-24] MEDS ORDERED: Medication Not On Formulary EA (Multivitamin (Multi Vitamin Daily) 1 EACH) PO SCH (09:00)
[2017-10-24] MEDS ORDERED: CRANBERRY 1680 MG PO SCH (09:00)
[2017-10-24] MEDS ORDERED: Medication Not On Formulary EA (Ascorbic Acid (Vitamin C) 500 MG) PO SCH (09:00)
[2017-10-24] MEDS: INSULIN REGULAR, HUMAN 300 UNIT/3 ML VIAL SQ PRN ×2 (11:35→16:17)
[2017-10-24] MEDS: CLONAZEPAM 0.5 MG TABLET PO PRN (12:56)
[2017-10-24 16:00] VITALS: BP 153/85
[2017-10-24] MEDS: ATORVASTATIN 10 MG TABLET PO SCH (20:31)
[2017-10-24] MEDS: OLANZAPINE ZYDIS 5 MG TAB.RAPDIS PO SCH (20:32)
[2017-10-24] MEDS: MIRTAZAPINE 15 MG TABLET PO SCH (20:32)
[2017-10-24] MEDS: TAMSULOSIN HCL 0.4 MG CAP.SR.24H PO SCH (20:32)
[2017-10-24] MEDS: INSULIN REGULAR, HUMAN 300 UNITS/3 ML VIAL SQ PRN (20:45)
[2017-10-24] MEDS: TEMAZEPAM 7.5 MG CAPSULE PO PRN (21:50)
[2017-10-24] MEDS: ACETAMINOPHEN 325 MG TABLET PO PRN (22:25)
[2017-10-25] MEDS: CLONAZEPAM 0.5 MG TABLET PO PRN (00:18)
[2017-10-25] MEDS: BLOOD SUGAR DIAGNOSTIC 1 EACH STRIP VI SCH ×4 (06:50→20:18)
[2017-10-25 07:30] VITALS: BP 141/82
[2017-10-25 07:33] LABS: BASOPHILS # (AUTO) 0.1 K/uL (0.0-8.0); EOSINOPHILS # (AUTO) 0.4 K/uL (0.0-0.7); EOSINOPHILS % (AUTO) 4.2 % (0.0-7.0); HEMATOCRIT 37.6 % (36.7-47.1); HEMOGLOBIN 12.8 g/dL (12.5-16.3); LYMPHOCYTES # (AUTO) 2.9 K/uL (20.0-40.0); LYMPHOCYTES % (AUTO) 32.1 % (20.5-51.5); MEAN CORPUSCULAR HEMOGLOBIN 29.5 uug (23.8-33.4); MEAN CORPUSCULAR HGB CONC 34 g/dL (32.5-36.3); MEAN CORPUSCULAR VOLUME 86.8 fL (73.0-96.2); MONOCYTES # (AUTO) 0.7 K/uL (2.0-10.0); MONOCYTES % (AUTO) 8.2 % (0.0-11.0); NEUTROPHILS # (AUTO) 4.9 K/uL (1.8-8.9); NEUTROPHILS % (AUTO) 54.5 % (38.5-71.5); PLATELET COUNT (AUTO) 247 K/uL (152-348); RED BLOOD CELL COUNT(AUTO) 4.33 MIL/uL (4.06-5.63); WHITE BLOOD COUNT (AUTO) 8.9 K/uL (3.6-10.2)
[2017-10-25] MEDS: CARVEDILOL 6.25 MG TABLET PO SCH ×2 (08:00→17:40)
[2017-10-25] MEDS: INSULIN REGULAR, HUMAN 300 UNIT/3 ML VIAL SQ PRN ×3 (08:00→17:39)
[2017-10-25 08:09] LABS: ALANINE AMINOTRANSFERASE 11 U/L (16-63); ALKALINE PHOSPHATASE 96 U/L (50-136); ASPARTATE AMINOTRANSFERASE 13 U/L (15-37); BILIRUBIN,TOTAL 0.3 mg/dL (0.2-1.0); CARBON DIOXIDE 27 mmol/L (21-32); CHLORIDE 103 mmol/L (98-107); CREATININE 1.5 mg/dL (0.6-1.3); GLUCOSE 231 mg/dL (74-106); MAGNESIUM 2.1 mg/dL (1.8-2.4); PHOSPHOROUS 3.1 mg/dL (2.5-4.9); POTASSIUM 3.4 mmol/L (3.5-5.1); TOTAL PROTEIN, SERUM 7.8 g/dL (6.4-8.2); UREA NITROGEN, BLOOD 29 mg/dL (7-18)
[2017-10-25] MEDS: CEPHALEXIN MONOHYDRATE 500 MG CAPSULE PO SCH ×2 (09:38→20:00)
[2017-10-25] MEDS: ASCORBIC ACID 500 MG TABLET PO SCH (09:38)
[2017-10-25] MEDS: MULTIVITAMINS,THERAPEUTIC TABLET PO SCH (09:38)
[2017-10-25] MEDS: DIVALPROEX 125 MG TABLET.DR PO SCH ×3 (09:38→17:40)
[2017-10-25] MEDS: AMLODIPINE 5 MG TABLET PO SCH ×2 (09:42→20:02)
[2017-10-25] MEDS ORDERED: POTASSIUM CHLORIDE 20 MEQ TAB.PRT.SR PO ONE (11:30)
[2017-10-25 16:55] VITALS: BP 143/76
[2017-10-25] MEDS: OLANZAPINE ZYDIS 5 MG TAB.RAPDIS PO SCH (20:00)
[2017-10-25] MEDS: ATORVASTATIN 10 MG TABLET PO SCH (20:00)
[2017-10-25] MEDS: MIRTAZAPINE 15 MG TABLET PO SCH (20:00)
[2017-10-25] MEDS: TAMSULOSIN HCL 0.4 MG CAP.SR.24H PO SCH (20:00)
[2017-10-25 20:09] VITALS: BP 129/80
[2017-10-25] MEDS: INSULIN GLARGINE,HUM 300 UNITS/3 ML CARTRIDGE SQ SCH (20:41)
[2017-10-25] MEDS: INSULIN REGULAR, HUMAN 300 UNITS/3 ML VIAL SQ PRN (20:44)
[2017-10-25] MEDS: TEMAZEPAM 7.5 MG CAPSULE PO PRN (22:39)
[2017-10-25] MEDS: ACETAMINOPHEN 325 MG TABLET PO PRN (22:40)
[2017-10-26] MEDS: CLONAZEPAM 0.5 MG TABLET PO PRN ×2 (01:02→23:25)
[2017-10-26] MEDS: BLOOD SUGAR DIAGNOSTIC 1 EACH STRIP VI SCH ×4 (06:44→20:29)
[2017-10-26 07:30] VITALS: BP 114/61
[2017-10-26] MEDS: DIVALPROEX 125 MG TABLET.DR PO SCH ×3 (08:20→17:36)
[2017-10-26] MEDS: CEPHALEXIN MONOHYDRATE 500 MG CAPSULE PO SCH ×2 (08:20→20:29)
[2017-10-26] MEDS: ASCORBIC ACID 500 MG TABLET PO SCH (08:20)
[2017-10-26] MEDS: AMLODIPINE 5 MG TABLET PO SCH ×2 (08:20→20:30)
[2017-10-26] MEDS: MULTIVITAMINS,THERAPEUTIC TABLET PO SCH (08:20)
[2017-10-26] MEDS: CARVEDILOL 6.25 MG TABLET PO SCH ×2 (08:21→17:35)
[2017-10-26] MEDS: INSULIN REGULAR, HUMAN 300 UNIT/3 ML VIAL SQ PRN ×2 (12:25→17:45)
[2017-10-26 15:41] VITALS: BP 138/77
[2017-10-26] MEDS: DOCUSATE SODIUM 100 MG CAPSULE PO SCH ×2 (15:42→20:29)
[2017-10-26 20:05] VITALS: BP 147/85
[2017-10-26] MEDS: OLANZAPINE ZYDIS 5 MG TAB.RAPDIS PO SCH (20:29)
[2017-10-26] MEDS: MIRTAZAPINE 15 MG TABLET PO SCH (20:29)
[2017-10-26] MEDS: ATORVASTATIN 10 MG TABLET PO SCH (20:29)
[2017-10-26] MEDS: TAMSULOSIN HCL 0.4 MG CAP.SR.24H PO SCH (20:29)
[2017-10-26] MEDS: INSULIN GLARGINE,HUM 300 UNITS/3 ML CARTRIDGE SQ SCH (20:40)
[2017-10-26] MEDS: INSULIN REGULAR, HUMAN 300 UNITS/3 ML VIAL SQ PRN (20:42)
[2017-10-26] MEDS: TEMAZEPAM 7.5 MG CAPSULE PO PRN (22:16)
[2017-10-26] MEDS: ACETAMINOPHEN 325 MG TABLET PO PRN (23:25)
[2017-10-27] MEDS: BLOOD SUGAR DIAGNOSTIC 1 EACH STRIP VI SCH ×4 (06:52→20:34)
[2017-10-27 07:30] VITALS: BP 121/59
[2017-10-27] MEDS ORDERED: BISACODYL 10 MG SUPP.RECT RC ONE (11:15)
[2017-10-27] MEDS ORDERED: MIRALAX 17 GM POWD.PACK PO PRN (11:15)
[2017-10-27] MEDS ORDERED: MIRALAX 17 GM POWD.PACK PO ONE (11:15)
[2017-10-27] MEDS: DIVALPROEX 125 MG TABLET.DR PO SCH ×3 (13:00→17:29)
[2017-10-27] MEDS: CEPHALEXIN MONOHYDRATE 500 MG CAPSULE PO SCH ×2 (13:05→20:53)
[2017-10-27] MEDS: MULTIVITAMINS,THERAPEUTIC TABLET PO SCH (13:05)
[2017-10-27] MEDS: ASCORBIC ACID 500 MG TABLET PO SCH (13:05)
[2017-10-27] MEDS: CARVEDILOL 6.25 MG TABLET PO SCH ×2 (13:07→17:31)
[2017-10-27] MEDS: AMLODIPINE 5 MG TABLET PO SCH ×2 (13:07→20:54)
[2017-10-27] MEDS: DOCUSATE SODIUM 100 MG CAPSULE PO SCH ×2 (13:08→20:53)
[2017-10-27] MEDS: INSULIN REGULAR, HUMAN 300 UNIT/3 ML VIAL SQ PRN ×2 (13:19→17:46)
[2017-10-27 16:31] VITALS: BP 136/56
[2017-10-27] MEDS: CYANOCOBALAMIN 1000 MCG/ML VIAL IM SCH (16:57)
[2017-10-27 19:47] VITALS: BP 150/76
[2017-10-27] MEDS: INSULIN REGULAR, HUMAN 300 UNITS/3 ML VIAL SQ PRN (20:52)
[2017-10-27] MEDS: INSULIN GLARGINE,HUM 300 UNITS/3 ML CARTRIDGE SQ SCH (20:53)
[2017-10-27] MEDS: TAMSULOSIN HCL 0.4 MG CAP.SR.24H PO SCH (20:54)
[2017-10-27] MEDS: SENNOSIDES 1 TABLET PO SCH (20:54)
[2017-10-27] MEDS: ATORVASTATIN 10 MG TABLET PO SCH (20:54)
[2017-10-27] MEDS: MIRTAZAPINE 15 MG TABLET PO SCH (20:54)
[2017-10-27] MEDS: OLANZAPINE ZYDIS 5 MG TAB.RAPDIS PO SCH (20:55)
[2017-10-27] MEDS: TEMAZEPAM 7.5 MG CAPSULE PO PRN (22:17)
[2017-10-27] MEDS: CLONAZEPAM 0.5 MG TABLET PO PRN (23:48)
[2017-10-28] MEDS: BLOOD SUGAR DIAGNOSTIC 1 EACH STRIP VI SCH ×4 (06:45→20:41)
[2017-10-28 07:30] VITALS: BP 125/58
[2017-10-28] MEDS: CARVEDILOL 6.25 MG TABLET PO SCH ×3 (08:00→17:17)
[2017-10-28] MEDS: DOCUSATE SODIUM 100 MG CAPSULE PO SCH ×3 (09:00→20:33)
[2017-10-28] MEDS: CEPHALEXIN MONOHYDRATE 500 MG CAPSULE PO SCH ×3 (09:00→20:33)
[2017-10-28] MEDS: ASCORBIC ACID 500 MG TABLET PO SCH ×2 (09:00→11:33)
[2017-10-28] MEDS: AMLODIPINE 5 MG TABLET PO SCH ×3 (09:00→20:35)
[2017-10-28] MEDS: DIVALPROEX 125 MG TABLET.DR PO SCH ×3 (09:00→17:09)
[2017-10-28] MEDS: MULTIVITAMINS,THERAPEUTIC TABLET PO SCH ×2 (09:00→11:34)
[2017-10-28] MEDS: CYANOCOBALAMIN 1000 MCG/ML VIAL IM SCH ×2 (09:00→11:36)
[2017-10-28 15:14] VITALS: BP 149/54
[2017-10-28] MEDS ORDERED: BISACODYL 10 MG SUPP.RECT RC ONE (16:15)
[2017-10-28] MEDS ORDERED: LACTULOSE 20 G/30 ML LIQUID UDC PO ONE (16:15)
[2017-10-28 17:39] VITALS: BP 154/85
[2017-10-28] MEDS: INSULIN REGULAR, HUMAN 300 UNIT/3 ML VIAL SQ PRN (17:46)
[2017-10-28 20:02] VITALS: BP 145/80
[2017-10-28] MEDS: TAMSULOSIN HCL 0.4 MG CAP.SR.24H PO SCH (20:34)
[2017-10-28] MEDS: SENNOSIDES 1 TABLET PO SCH (20:34)
[2017-10-28] MEDS: OLANZAPINE ZYDIS 5 MG TAB.RAPDIS PO SCH (20:35)
[2017-10-28] MEDS: ATORVASTATIN 10 MG TABLET PO SCH (20:35)
[2017-10-28] MEDS: INSULIN GLARGINE,HUM 300 UNITS/3 ML CARTRIDGE SQ SCH (20:40)
[2017-10-28] MEDS: INSULIN REGULAR, HUMAN 300 UNITS/3 ML VIAL SQ PRN (20:43)
[2017-10-28] MEDS: TEMAZEPAM 7.5 MG CAPSULE PO PRN (23:12)
[2017-10-29] MEDS: CLONAZEPAM 0.5 MG TABLET PO PRN ×3 (00:04→23:54)
[2017-10-29] MEDS: BLOOD SUGAR DIAGNOSTIC 1 EACH STRIP VI SCH ×4 (06:43→20:29)
[2017-10-29 07:30] VITALS: BP 129/61
[2017-10-29] MEDS: MULTIVITAMINS,THERAPEUTIC TABLET PO SCH (08:51)
[2017-10-29] MEDS: CEPHALEXIN MONOHYDRATE 500 MG CAPSULE PO SCH ×2 (08:51→20:26)
[2017-10-29] MEDS: DIVALPROEX 125 MG TABLET.DR PO SCH ×2 (08:51→17:06)
[2017-10-29] MEDS: CARVEDILOL 6.25 MG TABLET PO SCH ×2 (08:52→17:06)
[2017-10-29] MEDS: ASCORBIC ACID 500 MG TABLET PO SCH (08:52)
[2017-10-29] MEDS: DOCUSATE SODIUM 100 MG CAPSULE PO SCH ×2 (08:52→20:37)
[2017-10-29] MEDS: AMLODIPINE 5 MG TABLET PO SCH ×2 (08:52→20:26)
[2017-10-29] MEDS: CYANOCOBALAMIN 1000 MCG/ML VIAL IM SCH (08:53)
[2017-10-29 15:36] VITALS: BP 135/68
[2017-10-29] MEDS: INSULIN REGULAR, HUMAN 300 UNIT/3 ML VIAL SQ PRN (16:37)
[2017-10-29 20:00] VITALS: BP 132/76
[2017-10-29] MEDS ORDERED: DIVALPROEX 250 MG TABLET.DR PO SCH (20:00)
[2017-10-29] MEDS: TAMSULOSIN HCL 0.4 MG CAP.SR.24H PO SCH (20:24)
[2017-10-29] MEDS: ATORVASTATIN 10 MG TABLET PO SCH (20:25)
[2017-10-29] MEDS: OLANZAPINE ZYDIS 5 MG TAB.RAPDIS PO SCH (20:25)
[2017-10-29] MEDS: SENNOSIDES 1 TABLET PO SCH (20:26)
[2017-10-29] MEDS: INSULIN GLARGINE,HUM 300 UNITS/3 ML CARTRIDGE SQ SCH (20:30)
[2017-10-29] MEDS: INSULIN REGULAR, HUMAN 300 UNITS/3 ML VIAL SQ PRN (20:32)
[2017-10-29] MEDS: ACETAMINOPHEN 325 MG TABLET PO PRN (22:13)
[2017-10-29] MEDS: TEMAZEPAM 7.5 MG CAPSULE PO PRN (22:13)
[2017-10-30] MEDS: BLOOD SUGAR DIAGNOSTIC 1 EACH STRIP VI SCH ×4 (06:35→20:44)
[2017-10-30 07:30] VITALS: BP 120/62
[2017-10-30] MEDS: CLONAZEPAM 0.5 MG TABLET PO PRN (08:15)
[2017-10-30] MEDS: ASCORBIC ACID 500 MG TABLET PO SCH (09:40)
[2017-10-30] MEDS: DOCUSATE SODIUM 100 MG CAPSULE PO SCH ×2 (09:41→20:40)
[2017-10-30] MEDS: MULTIVITAMINS,THERAPEUTIC TABLET PO SCH (09:41)
[2017-10-30] MEDS: CEPHALEXIN MONOHYDRATE 500 MG CAPSULE PO SCH ×2 (09:41→20:40)
[2017-10-30] MEDS: CYANOCOBALAMIN 1000 MCG/ML VIAL IM SCH (09:41)
[2017-10-30] MEDS: DIVALPROEX 125 MG TABLET.DR PO SCH (09:41)
[2017-10-30] MEDS: CARVEDILOL 6.25 MG TABLET PO SCH ×2 (09:43→17:06)
[2017-10-30] MEDS: AMLODIPINE 5 MG TABLET PO SCH ×2 (09:43→20:41)
[2017-10-30] MEDS: DIVALPROEX SPRINKLE 125 MG CAP.SPRINK PO SCH ×2 (13:13→17:05)
[2017-10-30 15:14] VITALS: BP 137/66
[2017-10-30 20:00] VITALS: BP 144/72
[2017-10-30] MEDS: ATORVASTATIN 10 MG TABLET PO SCH (20:40)
[2017-10-30] MEDS: SENNOSIDES 1 TABLET PO SCH (20:41)
[2017-10-30] MEDS: TAMSULOSIN HCL 0.4 MG CAP.SR.24H PO SCH (20:41)
[2017-10-30] MEDS: OLANZAPINE ZYDIS 5 MG TAB.RAPDIS PO SCH (20:41)
[2017-10-30] MEDS: INSULIN GLARGINE,HUM 300 UNITS/3 ML CARTRIDGE SQ SCH (20:46)
[2017-10-30] MEDS: INSULIN REGULAR, HUMAN 300 UNIT/3 ML VIAL SQ PRN (20:55)
[2017-10-30] MEDS: ACETAMINOPHEN 325 MG TABLET PO PRN (22:34)
[2017-10-30] MEDS: TEMAZEPAM 7.5 MG CAPSULE PO PRN (22:34)
[2017-10-31] MEDS: BLOOD SUGAR DIAGNOSTIC 1 EACH STRIP VI SCH ×4 (06:29→21:04)
[2017-10-31 06:59] LABS: BASOPHILS # (AUTO) 0.1 K/uL (0.0-8.0); BASOPHILS % (AUTO) 1.2 % (0.0-2.0); EOSINOPHILS # (AUTO) 0.3 K/uL (0.0-0.7); EOSINOPHILS % (AUTO) 4.1 % (0.0-7.0); HEMATOCRIT 37.9 % (36.7-47.1); HEMOGLOBIN 12.9 g/dL (12.5-16.3); LYMPHOCYTES # (AUTO) 3.3 K/uL (20.0-40.0); MEAN CORPUSCULAR HEMOGLOBIN 29.3 uug (23.8-33.4); MEAN CORPUSCULAR HGB CONC 34 g/dL (32.5-36.3); MEAN CORPUSCULAR VOLUME 86.1 fL (73.0-96.2); MONOCYTES # (AUTO) 0.6 K/uL (2.0-10.0); MONOCYTES % (AUTO) 7.5 % (0.0-11.0); NEUTROPHILS # (AUTO) 3.5 K/uL (1.8-8.9); NEUTROPHILS % (AUTO) 45.2 % (38.5-71.5); PLATELET COUNT (AUTO) 237 K/uL (152-348); WHITE BLOOD COUNT (AUTO) 7.8 K/uL (3.6-10.2)
[2017-10-31 07:30] VITALS: BP 121/60
[2017-10-31 07:39] LABS: ALANINE AMINOTRANSFERASE 21 U/L (16-63); ALKALINE PHOSPHATASE 82 U/L (50-136); ASPARTATE AMINOTRANSFERASE 10 U/L (15-37); BILIRUBIN,TOTAL 0.3 mg/dL (0.2-1.0); CARBON DIOXIDE 29 mmol/L (21-32); CHLORIDE 105 mmol/L (98-107); CREATININE 1.1 mg/dL (0.6-1.3); GLUCOSE 90 mg/dL (74-106); MAGNESIUM 2.1 mg/dL (1.8-2.4); PHOSPHOROUS 3.1 mg/dL (2.5-4.9); POTASSIUM 3.3 mmol/L (3.5-5.1); UREA NITROGEN, BLOOD 25 mg/dL (7-18)
[2017-10-31] MEDS: CYANOCOBALAMIN 1000 MCG/ML VIAL IM SCH (08:33)
[2017-10-31] MEDS: DIVALPROEX SPRINKLE 125 MG CAP.SPRINK PO SCH ×3 (08:33→16:24)
[2017-10-31] MEDS: CARVEDILOL 6.25 MG TABLET PO SCH ×2 (08:33→17:46)
[2017-10-31] MEDS: DOCUSATE SODIUM 100 MG CAPSULE PO SCH ×2 (08:33→21:04)
[2017-10-31] MEDS: ASCORBIC ACID 500 MG TABLET PO SCH (08:33)
[2017-10-31] MEDS: AMLODIPINE 5 MG TABLET PO SCH ×2 (08:33→21:05)
[2017-10-31] MEDS: MULTIVITAMINS,THERAPEUTIC TABLET PO SCH (08:33)
[2017-10-31] MEDS: CLONAZEPAM 0.5 MG TABLET PO PRN ×2 (08:54→13:52)
[2017-10-31] MEDS ORDERED: POTASSIUM CHLORIDE 20 MEQ TAB.PRT.SR PO ONE (11:00)
[2017-10-31 15:06] VITALS: BP 129/77
[2017-10-31] MEDS: INSULIN REGULAR, HUMAN 300 UNIT/3 ML VIAL SQ PRN (16:39)
[2017-10-31 20:00] VITALS: BP 138/74
[2017-10-31] MEDS: TAMSULOSIN HCL 0.4 MG CAP.SR.24H PO SCH (21:05)
[2017-10-31] MEDS: SENNOSIDES 1 TABLET PO SCH (21:05)
[2017-10-31] MEDS: ATORVASTATIN 10 MG TABLET PO SCH (21:05)
[2017-10-31] MEDS: OLANZAPINE ZYDIS 5 MG TAB.RAPDIS PO SCH (21:06)
[2017-10-31] MEDS: INSULIN REGULAR, HUMAN 300 UNITS/3 ML VIAL SQ PRN (21:11)
[2017-10-31] MEDS: INSULIN GLARGINE,HUM 300 UNITS/3 ML CARTRIDGE SQ SCH (21:12)
[2017-10-31] MEDS: TEMAZEPAM 7.5 MG CAPSULE PO PRN (22:28)
[2017-11-01] MEDS: CLONAZEPAM 0.5 MG TABLET PO PRN (00:50)
[2017-11-01] MEDS: BLOOD SUGAR DIAGNOSTIC 1 EACH STRIP VI SCH ×4 (06:52→21:02)
[2017-11-01 07:30] VITALS: BP 99/58
[2017-11-01] MEDS: CARVEDILOL 6.25 MG TABLET PO SCH ×2 (08:00→16:35)
[2017-11-01] MEDS: DOCUSATE SODIUM 100 MG CAPSULE PO SCH ×3 (09:00→21:00)
[2017-11-01] MEDS: AMLODIPINE 5 MG TABLET PO SCH ×2 (09:00→21:03)
[2017-11-01] MEDS: ASCORBIC ACID 500 MG TABLET PO SCH (09:37)
[2017-11-01] MEDS: CYANOCOBALAMIN 1000 MCG/ML VIAL IM SCH (09:37)
[2017-11-01] MEDS: MULTIVITAMINS,THERAPEUTIC TABLET PO SCH (09:37)
[2017-11-01] MEDS: DIVALPROEX SPRINKLE 125 MG CAP.SPRINK PO SCH ×3 (09:37→16:34)
[2017-11-01] MEDS: INSULIN REGULAR, HUMAN 300 UNIT/3 ML VIAL SQ PRN ×2 (12:33→16:33)
[2017-11-01 15:09] VITALS: BP 157/75
[2017-11-01 20:00] VITALS: BP 153/72
[2017-11-01] MEDS: SENNOSIDES 1 TABLET PO SCH (21:00)
[2017-11-01] MEDS: ATORVASTATIN 10 MG TABLET PO SCH (21:03)
[2017-11-01] MEDS: OLANZAPINE ZYDIS 5 MG TAB.RAPDIS PO SCH (21:03)
[2017-11-01] MEDS: TAMSULOSIN HCL 0.4 MG CAP.SR.24H PO SCH (21:03)
[2017-11-01] MEDS: INSULIN GLARGINE,HUM 300 UNITS/3 ML CARTRIDGE SQ SCH (21:05)
[2017-11-01] MEDS: INSULIN REGULAR, HUMAN 300 UNITS/3 ML VIAL SQ PRN (21:06)
[2017-11-01] MEDS: TEMAZEPAM 7.5 MG CAPSULE PO PRN (22:52)
[2017-11-02] MEDS: CLONAZEPAM 0.5 MG TABLET PO PRN (00:27)
[2017-11-02] MEDS: BLOOD SUGAR DIAGNOSTIC 1 EACH STRIP VI SCH ×3 (06:46→16:51)
[2017-11-02 07:30] VITALS: BP 111/61
[2017-11-02] MEDS: MULTIVITAMINS,THERAPEUTIC TABLET PO SCH (09:11)
[2017-11-02] MEDS: DOCUSATE SODIUM 100 MG CAPSULE PO SCH (09:11)
[2017-11-02] MEDS: ASCORBIC ACID 500 MG TABLET PO SCH (09:11)
[2017-11-02] MEDS: DIVALPROEX SPRINKLE 125 MG CAP.SPRINK PO SCH ×3 (09:11→17:13)
[2017-11-02] MEDS: CARVEDILOL 6.25 MG TABLET PO SCH ×2 (09:12→17:14)
[2017-11-02] MEDS: CYANOCOBALAMIN 1000 MCG/ML VIAL IM SCH (09:12)
[2017-11-02] MEDS: AMLODIPINE 5 MG TABLET PO SCH (09:13)
[2017-11-02] MEDS: INSULIN REGULAR, HUMAN 300 UNIT/3 ML VIAL SQ PRN ×2 (11:31→17:14)
[2017-11-02 16:23] VITALS: BP 156/86
[2017-11-02 18:50] VITALS: BP 174/85
== END 2017-11-02 19:30 | DRG 885 ==
LOC: ER 19:43 → GPS 23:32
PROVIDERS: ADMIT Psychiatry & Neurology Psychiatry; ATTEND Hospitalist
DX: F31.9 Bipolar disorder, unspecified (principal); F01.50 Vascular dementia, unspecified severity, without behavioral disturbance, psychotic disturbance, mood disturbance, and anxiety; N18.3 Chronic kidney disease, stage 3 (moderate); N17.0 Acute kidney failure with tubular necrosis; E11.65 Type 2 diabetes mellitus with hyperglycemia; G92 Toxic encephalopathy; E11.22 Type 2 diabetes mellitus with diabetic chronic kidney disease; D68.59 Other primary thrombophilia; I13.0 Hypertensive heart and chronic kidney disease with heart failure and stage 1 through stage 4 chronic kidney disease, or unspecified chronic kidney disease; I50.42 Chronic combined systolic (congestive) and diastolic (congestive) heart failure; N30.00 Acute cystitis without hematuria; E66.9 Obesity, unspecified; Z68.33 Body mass index [BMI] 33.0-33.9, adult; N40.0 Benign prostatic hyperplasia without lower urinary tract symptoms; Z87.440 Personal history of urinary (tract) infections; Z79.4 Long term (current) use of insulin; M19.90 Unspecified osteoarthritis, unspecified site; K40.20 Bilateral inguinal hernia, without obstruction or gangrene, not specified as recurrent; Z91.5 Personal history of self-harm; Z79.899 Other long term (current) drug therapy; I45.10 Unspecified right bundle-branch block; G89.29 Other chronic pain; M54.9 Dorsalgia, unspecified; Z87.81 Personal history of (healed) traumatic fracture; F09 Unspecified mental disorder due to known physiological condition; Z86.73 Personal history of transient ischemic attack (TIA), and cerebral infarction without residual deficits; Z86.718 Personal history of other venous thrombosis and embolism; Z91.81 History of falling; I48.91 Unspecified atrial fibrillation; Z95.0 Presence of cardiac pacemaker; E53.8 Deficiency of other specified B group vitamins; E87.5 Hyperkalemia; E78.5 Hyperlipidemia, unspecified
CPT/HCPCS: 36415; 70030-TC; 70450; 71045; 76770; 80164; 80307; 83735; 83970; 84100; 84155; 84165; 84443; 85025; 85730; 87086; 93005; 93307; 97116; 97530; A4663; G0480; J1200; J1815; J2060; J2358; J3420; J3490

== ENCOUNTER 2018-04-06 12:30 | Inpatient (IN) | payer MEDICARE, BC ==
[~2018-04-06] VITALS: Ht 177.8 cm; Wt 103.4 kg
[~2018-04-06 12:30] MED LIST changes: +ACET325T53 PO; -AMLO5TAB2 PO; +AMLO5TAB7 PO; +ATOR10TA PO; +BISA10SU12 RC; +BLOO-140 IN; +CARV6.25 PO; +CLON0.1T PO; +CRANBERRY PO; -HYDR25TA4 PO; -INSU100V7 SQ; +MAGN400O6 PO; +NA P133E RC; +POTA-88 PO
[2018-04-06] MEDS ORDERED: LORAZEPAM 0.5 MG TABLET PO ONE (12:45)
[2018-04-06] MEDS ORDERED: LORAZEPAM 0.5 MG TABLET ONE (12:58)
[2018-04-06 13:06] LABS: BASOPHILS # (AUTO) 0.1 K/uL (0.0-8.0); BASOPHILS % (AUTO) 0.8 % (0.0-2.0); EOSINOPHILS # (AUTO) 0.1 K/uL (0.0-0.7); EOSINOPHILS % (AUTO) 1.6 % (0.0-7.0); HEMATOCRIT 44.2 % (36.7-47.1); HEMOGLOBIN 15.4 g/dL (12.5-16.3); LYMPHOCYTES % (AUTO) 23.5 % (20.5-51.5); MEAN CORPUSCULAR HEMOGLOBIN 30.6 uug (23.8-33.4); MEAN CORPUSCULAR HGB CONC 35 g/dL (32.5-36.3); MEAN CORPUSCULAR VOLUME 88.1 fL (73.0-96.2); MONOCYTES # (AUTO) 0.8 K/uL (2.0-10.0); MONOCYTES % (AUTO) 9.2 % (0.0-11.0); NEUTROPHILS # (AUTO) 5.6 K/uL (1.8-8.9); NEUTROPHILS % (AUTO) 64.9 % (38.5-71.5); PLATELET COUNT (AUTO) 240 K/uL (152-348); RED BLOOD CELL COUNT(AUTO) 5.02 MIL/uL (4.06-5.63); WHITE BLOOD COUNT (AUTO) 8.7 K/uL (3.6-10.2)
[2018-04-06 13:08] LABS: *BILIRUBIN,URIN NEGATIVE (NEGATIVE); *BLOOD, URINE 1+ (NEGATIVE); *CLARITY,URINE CLEAR (CLEAR); *COLOR,URINE YELLOW (YELLOW); *KETONES,URINE TRACE (NEGATIVE); *PROTEIN,URINE 2+ (NEGATIVE); *UROBILINOGEN,URINE 0.2 E.U./dl (NORMAL); LEUKOCYTE ESTERASE ,URINE TRACE (NEGATIVE); NITRITE, URINE NEGATIVE (NEGATIVE); UGLUCOSE NEGATIVE (NEGATIVE)
[2018-04-06 13:15] LABS: ETHANOL < 3 MG/DL (0-0)
[2018-04-06 13:17] LABS: BACTERIA,URINE FEW /HPF (NONE SEEN); SQUAMOUS EPITHELIAL CELL,UR MODERATE /HPF (NONE SEEN)
[2018-04-06 13:22] LABS: ALANINE AMINOTRANSFERASE 17 U/L (16-63); ALKALINE PHOSPHATASE 104 U/L (50-136); ASPARTATE AMINOTRANSFERASE 17 U/L (15-37); BILIRUBIN,DIRECT 0.2 mg/dL (0.0-0.2); BILIRUBIN,TOTAL 0.9 mg/dL (0.2-1.0); CARBON DIOXIDE 27 mmol/L (21-32); CHLORIDE 91 mmol/L (98-107); CREATININE 3.2 mg/dL (0.6-1.3); GLUCOSE 238 mg/dL (74-106); TOTAL PROTEIN, SERUM 8.5 g/dL (6.4-8.2); UREA NITROGEN, BLOOD 57 mg/dL (7-18)
--- NOTE | 2018-04-06 13:30 | NUR ---
Chapin Anderson was called made aware of patient is medically cleared.
[2018-04-06 13:33] LABS: ACETAMINOPHEN < 2.0 ug/mL (10-30); POTASSIUM 2.5 mmol/L (3.5-5.1)
--- NOTE | 2018-04-06 13:35 | NUR ---
Medication list from previous visit reviewed with Angella (staff from [facility]) and updated to best of her knowledge. Angella stated another staff member will bring in a list of pt's home medications later.
[2018-04-06] MEDS ORDERED: POTASSIUM CHLORIDE 20 MEQ TAB.PRT.SR PO ONE (13:45)
[2018-04-06] MEDS ORDERED: POTASSIUM CHLORIDE 20 MEQ TAB.PRT.SR ONE (13:51)
[2018-04-06 14:28] LABS: *AMPHETAMINE, URINE NEGATIVE (NEGATIVE); *BARBITURATE, URINE NEGATIVE (NEGATIVE); *CANNABINOID, URINE NEGATIVE (NEGATIVE); *COCCAINE, URINE NEGATIVE (NEGATIVE); *OPIATE, URINE NEGATIVE (NEGATIVE); *PHENCYCLIDINE SCREEN,URINE NEGATIVE (NEGATIVE)
[2018-04-06] MEDS ORDERED: IV NORMAL SALINE 1000 ML BAG IV ONE (14:30)
--- NOTE | 2018-04-06 14:59 | NUR ---
Jolly moreira in ED - 04/06/18 at 1556 by MAXINE pt. back from Ct.
[2018-04-06] MEDS ORDERED: HYDROCODONE/APAP 5-325MG TABLET PO ONE (15:30)
--- NOTE | 2018-04-06 15:35 | NUR ---
ant yap rn spoke with jennifer the ns production control supervisor regarding a mhu bed. jennifer stated no beds available, needed to move pt's in mhu.
[2018-04-06] MEDS ORDERED: HYDROCODONE/APAP 5-325MG TABLET ONE (15:36)
--- NOTE | 2018-04-06 16:40 | NUR ---
Devora ([phone]) who stated she is the gis programmer of the [facility] facility provided an updated list of pt's home medications, pt record updated accordingly. Pending trans to MHU [id number], bed in process of being cleaned, MHU to call when bed is ready per inside sales supervisor.
[2018-04-06] MEDS ORDERED: INSU3INS6 SQ (16:56)
[2018-04-06] MEDS ORDERED: FAMO-132 PO (16:56)
[2018-04-06] MEDS ORDERED: CITA40TA22 PO (16:56)
[2018-04-06] MEDS ORDERED: QUET100T PO (16:56)
[2018-04-06] MEDS ORDERED: TRAZ-182 PO (16:56)
--- NOTE | 2018-04-06 17:26 | NUR ---
PT ADMITTED TO MHU UNDER THE CARE OF DR. RAZO/DR. HALL. PT TRANSFERRED VIA W/C TO MHU IN STABLE CONDITION, ALL PT BELONGINGS TAKEN WITH PT AT TIME OF ADMISSION.
[2018-04-06] MEDS ORDERED: MAGNESIUM HYDROXIDE 30 ML LIQUID UDC PO PRN (17:45)
[2018-04-06] MEDS ORDERED: MAG HYDROX/AL HYDROX/SIMETH 30 ML LIQUID UDC PO PRN (17:45)
[2018-04-06] MEDS ORDERED: ACETAMINOPHEN 325 MG TABLET PO PRN (17:45)
--- NOTE | 2018-04-06 18:49 | NUR ---
139/74, 97.8 ORAL TEMPERATURE, 80 PULSE, 19 RESPIRATIONS, RECEIVED ON UNIT AT 1735 FROM ER, RECEIVED FROM BOARD AND CARE FOR SEVERE SADNESS AND DEPRESSION, NOTED CRYING ON UNIT, DENIES THOUGHTS OF SUICIDE, BELONGINGS ACCOUNTED FOR AND PLACED IN LOCKER,
[2018-04-06 19:30] VITALS: BP 132/54
[2018-04-06] MEDS: HYDROCODONE/APAP 5-325MG TABLET PO PRN (20:12)
[2018-04-06] MEDS: TAMSULOSIN HCL 0.4 MG CAP.SR.24H PO SCH (20:16)
[2018-04-06] MEDS: CLONAZEPAM 0.5 MG TABLET PO PRN (20:16)
[2018-04-06] MEDS ORDERED: CLONIDINE HCL 0.1 MG TABLET PO PRN (21:00)
[2018-04-06] MEDS: INSULIN GLARGINE,HUM 300 UNITS/3 ML CARTRIDGE SQ SCH (21:15)
[2018-04-06 22:13] VITALS: BP 121/54
--- NOTE | 2018-04-06 22:30 | NUR ---
received to care, lying in bed, appearing agitated, and anxious, yelling, difficult to redirect. PRN norco was given at 2011, for 10/10 generalized pain. b/p was elevated, 176/61, so he was given PRN klonopin, for anxiety, at 2015. Dr Diehl was paged, and he ordered PRN catapres for b/p. which was given at 2112. by 2212, b/p was 121/54, and he was calmer, but stated minimal relief, from the norco. as of 2229, he appears to be asleep. no distress noted. will continue to monitor closely.
[2018-04-07] MEDS: HYDROCODONE/APAP 5-325MG TABLET PO PRN ×3 (03:51→20:32)
--- NOTE | 2018-04-07 03:51 | NUR ---
pt is now awake. c/o generalized pain 03/09. PRN norco was given.
--- NOTE | 2018-04-07 04:30 | NUR ---
appears to be asleep. no distress noted.
--- NOTE | 2018-04-07 06:31 | NUR ---
slept 9.5 hours. continues to sleep. no distress noted.
[2018-04-07 06:50] LABS: BASOPHILS % (AUTO) 0.7 % (0.0-2.0); EOSINOPHILS # (AUTO) 0.2 K/uL (0.0-0.7); EOSINOPHILS % (AUTO) 3.5 % (0.0-7.0); HEMATOCRIT 35.6 % (36.7-47.1); HEMOGLOBIN 12.3 g/dL (12.5-16.3); LYMPHOCYTES # (AUTO) 2.8 K/uL (20.0-40.0); LYMPHOCYTES % (AUTO) 41.9 % (20.5-51.5); MEAN CORPUSCULAR HEMOGLOBIN 30.7 uug (23.8-33.4); MEAN CORPUSCULAR HGB CONC 34 g/dL (32.5-36.3); MEAN CORPUSCULAR VOLUME 89.3 fL (73.0-96.2); MONOCYTES # (AUTO) 0.5 K/uL (2.0-10.0); MONOCYTES % (AUTO) 8.3 % (0.0-11.0); NEUTROPHILS % (AUTO) 45.6 % (38.5-71.5); PLATELET COUNT (AUTO) 190 K/uL (152-348); RED BLOOD CELL COUNT(AUTO) 3.99 MIL/uL (4.06-5.63); WHITE BLOOD COUNT (AUTO) 6.6 K/uL (3.6-10.2)
[2018-04-07 07:03] LABS: IRON, SERUM 105 ug/dL (50-175)
[2018-04-07 07:23] LABS: THYROID STIMULATING HORMONE 2.484 mIU/mL (0.358-3.740)
[2018-04-07 07:30] VITALS: BP 117/64
[2018-04-07 07:47] LABS: ALANINE AMINOTRANSFERASE 13 U/L (16-63); ALKALINE PHOSPHATASE 76 U/L (50-136); ASPARTATE AMINOTRANSFERASE 13 U/L (15-37); BILIRUBIN,TOTAL 0.5 mg/dL (0.2-1.0); CARBON DIOXIDE 31 mmol/L (21-32); CHLORIDE 99 mmol/L (98-107); CHOLESTEROL 301 mg/dL (<200); GLUCOSE 215 mg/dL (74-106); HDL CHOLESTEROL 36 mg/dL (40-60); MAGNESIUM 2.7 mg/dL (1.8-2.4); PHOSPHOROUS 4.4 mg/dL (2.5-4.9); TOTAL PROTEIN, SERUM 6.7 g/dL (6.4-8.2); TRIGLYCERIDES 166 MG/DL (30-150); UREA NITROGEN, BLOOD 56 mg/dL (7-18); URIC ACID 13.9 mg/dL (3.5-7.2)
[2018-04-07 08:35] LABS: POTASSIUM 2.5 mmol/L (3.5-5.1)
[2018-04-07] MEDS ORDERED: Medication Not On Formulary EA (Multivitamin (Multi Vitamin Daily) 1 EACH) PO SCH (09:00)
[2018-04-07] MEDS ORDERED: Medication Not On Formulary EA (Ascorbic Acid (Vitamin C) 500 MG) PO SCH (09:00)
[2018-04-07] MEDS ORDERED: POTASSIUM CHLORIDE 20 MEQ TAB.PRT.SR PO ONE (09:15)
[2018-04-07 09:40] VITALS: BP 117/64
[2018-04-07] MEDS: MULTIVITAMINS,THERAPEUTIC TABLET PO SCH (09:51)
[2018-04-07] MEDS: FAMOTIDINE 20 MG TABLET PO SCH ×2 (09:52→16:13)
[2018-04-07] MEDS: AMLODIPINE 5 MG TABLET PO SCH (09:52)
[2018-04-07] MEDS: ASCORBIC ACID 500 MG TABLET PO SCH (09:52)
[2018-04-07] MEDS: ALLOPURINOL 100 MG TABLET PO SCH (09:53)
[2018-04-07] MEDS: CLONAZEPAM 0.5 MG TABLET PO PRN ×2 (12:09→16:13)
[2018-04-07] MEDS ORDERED: DEXTROSE 50% 50 ML DISP.SYRIN IV PRN (12:15)
[2018-04-07] MEDS: IV NS 1000 ML 1,000 ML IV PRN ×2 (13:03→22:03)
[2018-04-07 15:14] VITALS: BP 100/67
[2018-04-07] MEDS: BLOOD SUGAR DIAGNOSTIC 1 EACH STRIP VI SCH ×2 (16:53→20:22)
[2018-04-07] MEDS: INSULIN REGULAR, HUMAN 300 UNIT/3 ML VIAL SQ PRN (16:58)
[2018-04-07] MEDS: TAMSULOSIN HCL 0.4 MG CAP.SR.24H PO SCH (20:26)
[2018-04-07] MEDS: TRAZODONE 100 MG TABLET PO SCH (20:26)
[2018-04-07] MEDS: risperiDONE 0.5 MG TABLET PO SCH (20:26)
[2018-04-07] MEDS: RIVASTIGMINE TARTRATE 1.5 MG CAPSULE PO SCH (20:26)
[2018-04-07] MEDS: ATORVASTATIN 20 MG TABLET PO SCH (20:26)
[2018-04-07] MEDS: INSULIN GLARGINE,HUM 300 UNITS/3 ML CARTRIDGE SQ SCH (20:35)
[2018-04-07] MEDS: INSULIN REGULAR, HUMAN 300 UNITS/3 ML VIAL SQ PRN (20:36)
[2018-04-07 20:42] VITALS: BP 119/58
[2018-04-07] MEDS: TEMAZEPAM 7.5 MG CAPSULE PO PRN (22:24)
--- NOTE | 2018-04-08 02:38 | NUR ---
GPS: Pt.asleep at this time. IVF koby. well. No s/s of fluid overload noted. Resp.even and unlabored. IV site on right hand intact. No s/s of infiltration noted. Will continue to monitor.
[2018-04-08] MEDS: BLOOD SUGAR DIAGNOSTIC 1 EACH STRIP VI SCH ×4 (06:33→20:16)
[2018-04-08 07:06] LABS: ALANINE AMINOTRANSFERASE 13 U/L (16-63); ALKALINE PHOSPHATASE 68 U/L (50-136); ASPARTATE AMINOTRANSFERASE 12 U/L (15-37); BILIRUBIN,TOTAL 0.4 mg/dL (0.2-1.0); CARBON DIOXIDE 29 mmol/L (21-32); CHLORIDE 105 mmol/L (98-107); CREATININE 2.2 mg/dL (0.6-1.3); GLUCOSE 171 mg/dL (74-106); MAGNESIUM 2.3 mg/dL (1.8-2.4); PHOSPHOROUS 4.4 mg/dL (2.5-4.9); TOTAL PROTEIN, SERUM 6.3 g/dL (6.4-8.2); UREA NITROGEN, BLOOD 45 mg/dL (7-18)
[2018-04-08 07:12] LABS: BASOPHILS # (AUTO) 0.1 K/uL (0.0-8.0); EOSINOPHILS # (AUTO) 0.3 K/uL (0.0-0.7); EOSINOPHILS % (AUTO) 4.2 % (0.0-7.0); HEMATOCRIT 34.5 % (36.7-47.1); HEMOGLOBIN 11.8 g/dL (12.5-16.3); LYMPHOCYTES # (AUTO) 2.9 K/uL (20.0-40.0); MEAN CORPUSCULAR HEMOGLOBIN 30.4 uug (23.8-33.4); MEAN CORPUSCULAR HGB CONC 34 g/dL (32.5-36.3); MEAN CORPUSCULAR VOLUME 89.2 fL (73.0-96.2); MONOCYTES # (AUTO) 0.5 K/uL (2.0-10.0); MONOCYTES % (AUTO) 6.9 % (0.0-11.0); NEUTROPHILS # (AUTO) 2.9 K/uL (1.8-8.9); NEUTROPHILS % (AUTO) 43.9 % (38.5-71.5); PLATELET COUNT (AUTO) 187 K/uL (152-348); RED BLOOD CELL COUNT(AUTO) 3.87 MIL/uL (4.06-5.63); WHITE BLOOD COUNT (AUTO) 6.5 K/uL (3.6-10.2)
[2018-04-08 07:29] LABS: POTASSIUM 2.8 mmol/L (3.5-5.1)
[2018-04-08 07:30] VITALS: BP 113/67
[2018-04-08] MEDS ORDERED: POTASSIUM CHLORIDE 10 MEQ TAB.PRT.SR PO ONE ×2 (08:00→12:15)
--- NOTE | 2018-04-08 08:05 | NUR ---
Received pt's potassium is 2.8 ,Caryl [employer]MI[employer] INTERNS[employer] notified with new order made.
[2018-04-08] MEDS ORDERED: POTASSIUM CHLORIDE 20 MEQ TAB.PRT.SR PO ONE (08:15)
[2018-04-08] MEDS: HYDROCODONE/APAP 5-325MG TABLET PO PRN ×2 (08:44→13:56)
[2018-04-08] MEDS: ASCORBIC ACID 500 MG TABLET PO SCH (08:44)
[2018-04-08] MEDS: CLONAZEPAM 0.5 MG TABLET PO PRN ×2 (08:45→13:55)
[2018-04-08] MEDS: MULTIVITAMINS,THERAPEUTIC TABLET PO SCH (08:45)
[2018-04-08] MEDS: FAMOTIDINE 20 MG TABLET PO SCH ×2 (08:45→17:22)
[2018-04-08] MEDS: risperiDONE 0.5 MG TABLET PO SCH ×2 (08:45→20:06)
[2018-04-08] MEDS: RIVASTIGMINE TARTRATE 1.5 MG CAPSULE PO SCH ×2 (08:45→20:07)
[2018-04-08] MEDS: AMLODIPINE 5 MG TABLET PO SCH (08:48)
[2018-04-08] MEDS: ALLOPURINOL 100 MG TABLET PO SCH (08:48)
[2018-04-08] MEDS: INSULIN REGULAR, HUMAN 300 UNIT/3 ML VIAL SQ PRN ×3 (09:44→17:23)
[2018-04-08 11:53] LABS: *OCCULT BLOOD STOOL NEGATIVE (NEGATIVE)
[2018-04-08] MEDS: CEPHALEXIN MONOHYDRATE 250 MG CAPSULE PO SCH ×2 (15:10→22:17)
[2018-04-08 16:29] VITALS: BP 134/84
[2018-04-08 20:00] VITALS: BP 140/80
[2018-04-08] MEDS: ATORVASTATIN 20 MG TABLET PO SCH (20:06)
[2018-04-08] MEDS: TRAZODONE 100 MG TABLET PO SCH (20:06)
[2018-04-08] MEDS: TAMSULOSIN HCL 0.4 MG CAP.SR.24H PO SCH (20:07)
[2018-04-08] MEDS: INSULIN GLARGINE,HUM 300 UNITS/3 ML CARTRIDGE SQ SCH (20:27)
[2018-04-08] MEDS: INSULIN REGULAR, HUMAN 300 UNITS/3 ML VIAL SQ PRN (20:31)
[2018-04-08] MEDS: TEMAZEPAM 7.5 MG CAPSULE PO PRN (22:44)
[2018-04-09] MEDS: CLONAZEPAM 0.5 MG TABLET PO PRN ×3 (00:16→15:28)
[2018-04-09] MEDS: CEPHALEXIN MONOHYDRATE 250 MG CAPSULE PO SCH ×3 (06:11→21:22)
[2018-04-09] MEDS: BLOOD SUGAR DIAGNOSTIC 1 EACH STRIP VI SCH ×4 (06:33→20:06)
[2018-04-09 07:30] VITALS: BP 144/68
[2018-04-09] MEDS: RIVASTIGMINE TARTRATE 1.5 MG CAPSULE PO SCH ×2 (08:36→20:05)
[2018-04-09] MEDS: MULTIVITAMINS,THERAPEUTIC TABLET PO SCH (08:36)
[2018-04-09] MEDS: ASCORBIC ACID 500 MG TABLET PO SCH (08:36)
[2018-04-09] MEDS: risperiDONE 0.5 MG TABLET PO SCH ×2 (08:36→20:05)
[2018-04-09] MEDS: FAMOTIDINE 20 MG TABLET PO SCH ×2 (08:36→16:49)
[2018-04-09] MEDS: ALLOPURINOL 100 MG TABLET PO SCH (08:37)
[2018-04-09] MEDS: AMLODIPINE 5 MG TABLET PO SCH (08:39)
[2018-04-09] MEDS: INSULIN REGULAR, HUMAN 300 UNIT/3 ML VIAL SQ PRN ×3 (08:42→16:43)
--- NOTE | 2018-04-09 10:47 | NUR ---
Pt.in chair A/A/Ox2,no s/s of distress,denies pain @ time.
[2018-04-09] MEDS: INSULIN REGULAR, HUMAN 300 UNIT/3 ML VIAL SQ SCH ×2 (11:57→16:42)
--- NOTE | 2018-04-09 13:42 | NUR ---
Initial DC Instructions: Patient currently resides at his B& [[address] [place] [address]; [phone]]. Per pt, he would like to return there when ready for discharge. Spoke with Devora at the facility ([phone]) who confirms that the patient will be able to return there upon discharge. SW will continue to collaborate with pt, family, and MD regarding most appropriate discharge plans. SW will form a safe and proper discharge plan.
[2018-04-09 16:33] VITALS: BP 144/63
[2018-04-09] MEDS: HYDROCODONE/APAP 5-325MG TABLET PO PRN (16:37)
[2018-04-09 19:30] VITALS: BP 133/70
[2018-04-09] MEDS: ATORVASTATIN 20 MG TABLET PO SCH (20:05)
[2018-04-09] MEDS: TAMSULOSIN HCL 0.4 MG CAP.SR.24H PO SCH (20:05)
[2018-04-09] MEDS: TRAZODONE 100 MG TABLET PO SCH (20:05)
[2018-04-09] MEDS: INSULIN GLARGINE,HUM 300 UNITS/3 ML CARTRIDGE SQ SCH (20:11)
[2018-04-09] MEDS: INSULIN REGULAR, HUMAN 300 UNITS/3 ML VIAL SQ PRN (20:12)
[2018-04-09] MEDS: TEMAZEPAM 7.5 MG CAPSULE PO PRN (22:00)
[2018-04-10] MEDS: HYDROCODONE/APAP 5-325MG TABLET PO PRN ×3 (01:47→17:34)
--- NOTE | 2018-04-10 01:50 | NUR ---
GPS: Pt.complaining of generalized pain 8/10 at this time. Repositioned for comfort. [place] 5/325 given as ordered. Will monitor effectiveness of med. Fall precautions observed. No s/s of glycemic reactions noted.
[2018-04-10] MEDS: CEPHALEXIN MONOHYDRATE 250 MG CAPSULE PO SCH ×3 (05:51→21:21)
--- NOTE | 2018-04-10 06:31 | NUR ---
GPS: Up on gerichair at this time in day room watching tv. Denies any pain at this time. Blood sugar at this time is 166mg/dl. Safety emphasized. Re-directed prn.
[2018-04-10] MEDS: BLOOD SUGAR DIAGNOSTIC 1 EACH STRIP VI SCH ×4 (06:34→20:21)
[2018-04-10 07:30] VITALS: BP 158/88
[2018-04-10] MEDS: INSULIN REGULAR, HUMAN 300 UNIT/3 ML VIAL SQ SCH ×3 (08:34→17:34)
[2018-04-10] MEDS: INSULIN REGULAR, HUMAN 300 UNIT/3 ML VIAL SQ PRN ×3 (08:35→17:35)
[2018-04-10] MEDS: AMLODIPINE 5 MG TABLET PO SCH (08:38)
[2018-04-10] MEDS: CLONAZEPAM 0.5 MG TABLET PO PRN ×2 (08:38→17:34)
[2018-04-10] MEDS: ASCORBIC ACID 500 MG TABLET PO SCH (08:38)
[2018-04-10] MEDS: ALLOPURINOL 100 MG TABLET PO SCH (08:39)
[2018-04-10] MEDS: RIVASTIGMINE TARTRATE 1.5 MG CAPSULE PO SCH ×2 (08:39→20:30)
[2018-04-10] MEDS: MULTIVITAMINS,THERAPEUTIC TABLET PO SCH (08:39)
[2018-04-10] MEDS: risperiDONE 0.5 MG TABLET PO SCH ×2 (08:39→20:30)
[2018-04-10] MEDS: FAMOTIDINE 20 MG TABLET PO SCH ×2 (08:39→17:34)
[2018-04-10 17:31] VITALS: BP 143/82
[2018-04-10 20:22] VITALS: BP 142/88
[2018-04-10] MEDS: TRAZODONE 100 MG TABLET PO SCH (20:30)
[2018-04-10] MEDS: ATORVASTATIN 20 MG TABLET PO SCH (20:30)
[2018-04-10] MEDS: INSULIN GLARGINE,HUM 300 UNITS/3 ML CARTRIDGE SQ SCH (20:31)
[2018-04-10] MEDS: INSULIN REGULAR, HUMAN 300 UNITS/3 ML VIAL SQ PRN (20:35)
[2018-04-10] MEDS: TAMSULOSIN HCL 0.4 MG CAP.SR.24H PO SCH (20:40)
[2018-04-11] MEDS: CEPHALEXIN MONOHYDRATE 250 MG CAPSULE PO SCH ×3 (06:12→21:20)
[2018-04-11] MEDS: BLOOD SUGAR DIAGNOSTIC 1 EACH STRIP VI SCH ×4 (06:38→20:55)
[2018-04-11 07:30] VITALS: BP 147/79
[2018-04-11 07:30] LABS: BASOPHILS # (AUTO) 0.1 K/uL (0.0-8.0); BASOPHILS % (AUTO) 1.2 % (0.0-2.0); EOSINOPHILS # (AUTO) 0.2 K/uL (0.0-0.7); EOSINOPHILS % (AUTO) 3.6 % (0.0-7.0); HEMATOCRIT 36.1 % (36.7-47.1); HEMOGLOBIN 12.4 g/dL (12.5-16.3); LYMPHOCYTES # (AUTO) 2.6 K/uL (20.0-40.0); LYMPHOCYTES % (AUTO) 36.8 % (20.5-51.5); MEAN CORPUSCULAR HEMOGLOBIN 30.8 uug (23.8-33.4); MEAN CORPUSCULAR HGB CONC 34 g/dL (32.5-36.3); MEAN CORPUSCULAR VOLUME 89.8 fL (73.0-96.2); MONOCYTES # (AUTO) 0.7 K/uL (2.0-10.0); MONOCYTES % (AUTO) 9.9 % (0.0-11.0); NEUTROPHILS # (AUTO) 3.4 K/uL (1.8-8.9); NEUTROPHILS % (AUTO) 48.5 % (38.5-71.5); PLATELET COUNT (AUTO) 203 K/uL (152-348); RED BLOOD CELL COUNT(AUTO) 4.02 MIL/uL (4.06-5.63)
[2018-04-11 07:45] LABS: ALANINE AMINOTRANSFERASE 14 U/L (16-63); ALKALINE PHOSPHATASE 69 U/L (50-136); ASPARTATE AMINOTRANSFERASE 16 U/L (15-37); BILIRUBIN,TOTAL 0.4 mg/dL (0.2-1.0); CARBON DIOXIDE 29 mmol/L (21-32); CHLORIDE 105 mmol/L (98-107); CREATININE 1.7 mg/dL (0.6-1.3); GLUCOSE 90 mg/dL (74-106); PHOSPHOROUS 3.9 mg/dL (2.5-4.9); TOTAL PROTEIN, SERUM 6.7 g/dL (6.4-8.2); UREA NITROGEN, BLOOD 26 mg/dL (7-18)
[2018-04-11 07:50] LABS: POTASSIUM 2.6 mmol/L (3.5-5.1)
[2018-04-11] MEDS ORDERED: POTASSIUM CHLORIDE 20 MEQ TAB.PRT.SR PO SCH (09:00)
[2018-04-11] MEDS ORDERED: POTASSIUM CHLORIDE 20 MEQ TAB.PRT.SR PO ONE ×3 (09:28→15:00)
[2018-04-11] MEDS: ASCORBIC ACID 500 MG TABLET PO SCH (09:44)
[2018-04-11] MEDS: MULTIVITAMINS,THERAPEUTIC TABLET PO SCH (09:44)
[2018-04-11] MEDS: FAMOTIDINE 20 MG TABLET PO SCH ×2 (09:44→17:06)
[2018-04-11] MEDS: AMLODIPINE 5 MG TABLET PO SCH (09:44)
[2018-04-11] MEDS: RIVASTIGMINE TARTRATE 1.5 MG CAPSULE PO SCH ×2 (09:44→20:54)
[2018-04-11] MEDS: risperiDONE 0.5 MG TABLET PO SCH ×2 (09:44→20:55)
[2018-04-11] MEDS: ALLOPURINOL 100 MG TABLET PO SCH (09:45)
[2018-04-11] MEDS: INSULIN REGULAR, HUMAN 300 UNIT/3 ML VIAL SQ SCH ×3 (09:48→17:09)
[2018-04-11] MEDS: INSULIN REGULAR, HUMAN 300 UNIT/3 ML VIAL SQ PRN ×2 (13:32→17:09)
--- NOTE | 2018-04-11 13:44 | NUR ---
Firearms Report: Ruling Machine Operator completed and submitted [employer] Firearms Report on 04/11/18 for 5250 GD certification.
[2018-04-11] MEDS ORDERED: POTASSIUM CHLORIDE 20 MEQ TAB.PRT.SR ONE (14:30)
--- NOTE | 2018-04-11 14:58 | NUR ---
Activity Group Note: Patients engaged in a [employer] activity where they were shown pictures and asked to tell a story about the picture or express how the picture made them feel. Patients were encouraged to reference their other senses such as smell, taste, hear, etc. Subjective: "I like it out here." Objective: Patient seems pleasant in the group. Engaged in activity when asked to engage. 20 min late to group activity. Had eyes closed throughout most of activity. Assessment: Patient seemed to be engaged in the group activity. Patient seemed to be able to build off of other ideas in the group to further the story about the photo being told. Patient's thought process was linear. Plan: Continue to encourage group activity attendance as scheduled.
--- NOTE | 2018-04-11 16:01 | NUR ---
Discharge Planning Note: Assignment Clerk consulted with Dr. Brown about case. Per Dr. Brown, he will dc the patient from [facility] tomorrow (04/12/18) pending medical clearance. Placed call to patient's caregiver, Devora ([phone]) to give update on case. Per Devora, she will be ready to pick up truck driver the patient if he is discharged tomorrow. SW will collaborate with treatment team and alert caregiver of discharge plans.
[2018-04-11 16:16] VITALS: BP 130/79
[2018-04-11 19:36] VITALS: BP 123/59
--- NOTE | 2018-04-11 20:00 | NUR ---
RECEIVED PATIENT IN HIS ROOM IN BED. HE IS NOTED AWAKE A/O X 2. HIS AMBULATION IS UNSTEADY, HE IS CONTINENT/INCONTINENT. HE IS ABLE TO MAKE HIS NEEDS KNOWN. HE IS NOTED WITH LOW MOOD, SAD FACIAL EXPRESSION, CRYING AND TEARFUL. HE STATED, "I AM SAD BECAUSE MY AND I ARE AND I MISS HER A LOT. MY DAUGHTER GOT LAST MONDAY AND I COULD NOT GO TO HER [place]". HE IS ALSO NOTED NEEDY, AND ANXIOUS. HE DENIES ANY THOUGHT TO HARM SELF OR ANY SI AT THIS TIME. PATIENT WAS REASSURED AND REDIRECTED. SAFETY WAS EMPHASIS. BED AT LOWEST POSITION WITH WHEELS LOCKED, ALARM ON AND FREQUENT HEAD CHECKS.
[2018-04-11 20:46] LABS: CARBON DIOXIDE 28 mmol/L (21-32); CHLORIDE 106 mmol/L (98-107); CREATININE 1.8 mg/dL (0.6-1.3); POTASSIUM 3.3 mmol/L (3.5-5.1); UREA NITROGEN, BLOOD 23 mg/dL (7-18)
[2018-04-11] MEDS: ATORVASTATIN 20 MG TABLET PO SCH (20:54)
[2018-04-11] MEDS: TRAZODONE 100 MG TABLET PO SCH (20:55)
[2018-04-11] MEDS: TAMSULOSIN HCL 0.4 MG CAP.SR.24H PO SCH (20:55)
[2018-04-11 21:00] LABS: GLUCOSE 319 mg/dL (74-106)
--- NOTE | 2018-04-11 21:00 | NUR ---
RECEIVED LABS: K 3.3 TAWANA, INSPECTOR FIBROUS WALLBOARD WAS NOTIFY, NO NEW ORDERS GIVEN AT THIS TIME. WILL CONTINUE TO MONITOR CLOSELY.
[2018-04-11] MEDS: INSULIN REGULAR, HUMAN 300 UNITS/3 ML VIAL SQ PRN (21:23)
[2018-04-11] MEDS: INSULIN GLARGINE,HUM 300 UNITS/3 ML CARTRIDGE SQ SCH (21:24)
[2018-04-11] MEDS: TEMAZEPAM 7.5 MG CAPSULE PO PRN (22:06)
--- NOTE | 2018-04-11 22:10 | NUR ---
PATIENT NOTED RESTLESS, ANXIOUS, NEEDY, ATTENTION SEEKER, AGITATED AND UNABLE TO FALL ASLEEP. RESTORIL 7.5MG PO PRN WAS GIVEN FOR INSOMNIA. WILL CONTINUE TO MONITOR.
[2018-04-11] MEDS: CLONAZEPAM 0.5 MG TABLET PO PRN (23:13)
--- NOTE | 2018-04-11 23:15 | NUR ---
PATIENT CONTINUE AWAKE, RESTLESS AND ANXIOUS. KLONOPIN 0.5MG PO PRN WAS GIVEN FOR ANXIETY. WILL CONTINUE TO MONITOR CLOSELY.
[2018-04-12] MEDS: CEPHALEXIN MONOHYDRATE 250 MG CAPSULE PO SCH ×2 (06:24→14:20)
[2018-04-12] MEDS: BLOOD SUGAR DIAGNOSTIC 1 EACH STRIP VI SCH ×3 (06:54→17:07)
--- NOTE | 2018-04-12 06:57 | NUR ---
PATIENT SLEPT FOR APPROX 7.00 HRS THROUGH THE NIGHT. CONTINUE COMPLIANT WITH MEDICATION REGIMENT, BS 118 THIS AM. WILL CONTINUE TO MONITOR,
[2018-04-12 07:30] VITALS: BP 119/61
[2018-04-12] MEDS: INSULIN REGULAR, HUMAN 300 UNIT/3 ML VIAL SQ SCH ×3 (08:20→17:10)
[2018-04-12] MEDS: FAMOTIDINE 20 MG TABLET PO SCH ×2 (08:35→17:11)
[2018-04-12] MEDS: risperiDONE 0.5 MG TABLET PO SCH (08:35)
[2018-04-12] MEDS: RIVASTIGMINE TARTRATE 1.5 MG CAPSULE PO SCH (08:35)
[2018-04-12] MEDS: MULTIVITAMINS,THERAPEUTIC TABLET PO SCH (08:35)
[2018-04-12] MEDS: ALLOPURINOL 100 MG TABLET PO SCH (08:36)
[2018-04-12] MEDS: ASCORBIC ACID 500 MG TABLET PO SCH (08:36)
[2018-04-12] MEDS: AMLODIPINE 5 MG TABLET PO SCH (08:37)
[2018-04-12] MEDS: INSULIN REGULAR, HUMAN 300 UNIT/3 ML VIAL SQ PRN ×2 (12:07→17:10)
--- NOTE | 2018-04-12 12:12 | NUR ---
Discharge Note: Patient will be discharged back to his B&C with his caregiver [[address] [place] [address]; [phone]] via private transportation between 2-2:30pm. Spoke with patients caregiver, Devora ([phone]) who has agreed to provide transportation and is aware and agreeable with discharge plans. Patient is alert and oriented x3, denies SI/HI, and is cooperative. A Home Health Order for PT/OT, medication management, and social work evaluation was faxed to [facility] (ph. [phone]; fax [phone]). Spoke with Marc, and patient was accepted for start of care on 04/13/18. Patient was referred to [facility] for Legal Research Analyst referrals ([phone]). Patient was provided with a list of Medicare-accepting psychiatrists in his area. Patient was provided with outpatient mental health resources to [facility] , Letitia Yang , and the National Suicide Prevention Lifeline . Addendum: 04/12/18 at 1218 by DEVONTE LOPEZ Transportation Time CORRECTION: Patient will be discharged at 4pm. Patient's caregiver, Devora, aware and agreeable.
[2018-04-12 16:33] VITALS: BP 134/74
--- NOTE | 2018-04-12 18:30 | NUR ---
Discharge instructions provided to patient and caregiver with verbalized understanding. All belongings and valuables all accounted for. Discharge papers signed by and provided to the patient. Discharge prescription given to the patient with the caregiver. Patient assisted to the parking lot by ADRIENNE via wheelchair. Patient discharged to board and care, picked up by caregiver Devora at 1800 via private car.
== END 2018-04-12 18:00 | disposition home health service (06) | DRG 885 ==
LOC: ER 12:30 → GPS 16:48
PROVIDERS: ADMIT Psychiatry & Neurology Psychiatry; ATTEND Internal Medicine
DX: F32.3 Major depressive disorder, single episode, severe with psychotic features (principal); N17.0 Acute kidney failure with tubular necrosis; N18.4 Chronic kidney disease, stage 4 (severe); E11.65 Type 2 diabetes mellitus with hyperglycemia; F03.91 Unspecified dementia, unspecified severity, with behavioral disturbance; N39.0 Urinary tract infection, site not specified; E44.0 Moderate protein-calorie malnutrition; D68.59 Other primary thrombophilia; E87.6 Hypokalemia; E11.22 Type 2 diabetes mellitus with diabetic chronic kidney disease; I13.10 Hypertensive heart and chronic kidney disease without heart failure, with stage 1 through stage 4 chronic kidney disease, or unspecified chronic kidney disease; Z79.4 Long term (current) use of insulin; Z79.899 Other long term (current) drug therapy; E66.9 Obesity, unspecified; Z68.32 Body mass index [BMI] 32.0-32.9, adult; Z71.3 Dietary counseling and surveillance; E83.41 Hypermagnesemia; E78.5 Hyperlipidemia, unspecified; Z74.09 Other reduced mobility; N40.1 Benign prostatic hyperplasia with lower urinary tract symptoms; N39.498 Other specified urinary incontinence; Z87.440 Personal history of urinary (tract) infections; I48.91 Unspecified atrial fibrillation; Z95.0 Presence of cardiac pacemaker; F41.9 Anxiety disorder, unspecified; D64.9 Anemia, unspecified
CPT/HCPCS: 36415; 70030-TC; 71045; 80307; 82306; 83550; 83735; 84100; 84153; 84443; 84550; 85025; 85610; 87086; 93005; 93307; 97116; 97530; A4663; G0480; G0480-TC; J1815; J7030; J8499

== ENCOUNTER 2018-05-11 18:19 | Inpatient (IN) | payer MEDICARE, BC ==
[~2018-05-11] VITALS: Ht 175.3 cm; Wt 102.1 kg
[~2018-05-11 18:19] MED LIST changes: -ATOR10TA PO; -BISA10SU12 RC; -CARV6.25 PO; +CITA40TA22 PO; -CLON0.1T PO; -CRANBERRY PO; +FAMO-132 PO; +INSU3INS6 SQ; -MAGN400O6 PO; -NA P133E RC; -POTA-88 PO; +QUET100T PO; +TRAZ-182 PO
--- NOTE | 2018-05-11 19:18 | NUR ---
Pt came in from triage c/o intermittent L chest pain radiating to mid chest sharp since 2200 while at rest. CP with nausea. Denies any pain at this time. No sob noted. No s/sx of distress noted. Resp even and unlabored. Denies taking ASA. Will cont to monitor. Call light within reach.
[2018-05-11 19:32] LABS: BASOPHILS # (AUTO) 0.1 K/uL (0.0-8.0); BASOPHILS % (AUTO) 1.1 % (0.0-2.0); EOSINOPHILS # (AUTO) 0.2 K/uL (0.0-0.7); EOSINOPHILS % (AUTO) 1.8 % (0.0-7.0); HEMATOCRIT 40.1 % (36.7-47.1); HEMOGLOBIN 13.8 g/dL (12.5-16.3); LYMPHOCYTES # (AUTO) 2.6 K/uL (20.0-40.0); LYMPHOCYTES % (AUTO) 25.2 % (20.5-51.5); MEAN CORPUSCULAR HEMOGLOBIN 30.8 uug (23.8-33.4); MEAN CORPUSCULAR HGB CONC 34 g/dL (32.5-36.3); MEAN CORPUSCULAR VOLUME 89.5 fL (73.0-96.2); MONOCYTES # (AUTO) 0.6 K/uL (2.0-10.0); MONOCYTES % (AUTO) 6.3 % (0.0-11.0); NEUTROPHILS # (AUTO) 6.7 K/uL (1.8-8.9); NEUTROPHILS % (AUTO) 65.6 % (38.5-71.5); PLATELET COUNT (AUTO) 277 K/uL (152-348); RED BLOOD CELL COUNT(AUTO) 4.48 MIL/uL (4.06-5.63); WHITE BLOOD COUNT (AUTO) 10.3 K/uL (3.6-10.2)
[2018-05-11 19:45] LABS: ALANINE AMINOTRANSFERASE 21 U/L (16-63); ALKALINE PHOSPHATASE 88 U/L (50-136); ASPARTATE AMINOTRANSFERASE 12 U/L (15-37); BILIRUBIN,DIRECT 0.1 mg/dL (0.0-0.2); BILIRUBIN,TOTAL 0.6 mg/dL (0.2-1.0); CARBON DIOXIDE 28 mmol/L (21-32); CHLORIDE 99 mmol/L (98-107); CREATININE 1.7 mg/dL (0.6-1.3); GLUCOSE 177 mg/dL (74-106); LIPASE 87 U/L (73-393); TOTAL PROTEIN, SERUM 7.6 g/dL (6.4-8.2); UREA NITROGEN, BLOOD 21 mg/dL (7-18)
--- NOTE | 2018-05-11 19:48 | NUR ---
US at bedside.
[2018-05-11 19:49] LABS: POTASSIUM 2.6 mmol/L (3.5-5.1)
[2018-05-11] MEDS ORDERED: ASPIRIN 81 MG TAB.CHEW PO ONE (20:30)
[2018-05-11] MEDS ORDERED: NITROGLYCERIN OINT 1 GM PACKET TP ONE ×3 (20:30→20:34)
[2018-05-11] MEDS ORDERED: POTASSIUM CHLORIDE 10 MEQ TAB.PRT.SR PO ONE (20:30)
[2018-05-11] MEDS ORDERED: POTASSIUM CHLORIDE 20 MEQ TAB.PRT.SR ONE (20:33)
[2018-05-11] MEDS ORDERED: ASPIRIN 81 MG TAB.CHEW ONE (20:33)
[2018-05-11] MEDS ORDERED: POTASSIUM CHLORIDE 50 ML ONE ×2 (20:34→21:52)
[2018-05-11] MEDS ORDERED: NITROGLYCERIN 0.4 MG/TAB BOTTLE SL PRN (20:45)
[2018-05-11] MEDS ORDERED: DOCUSATE SODIUM 100 MG CAPSULE PO PRN (20:45)
[2018-05-11] MEDS ORDERED: ONDANSETRON 4 MG/2 ML VIAL IV ONE (20:45)
[2018-05-11] MEDS ORDERED: MORPHINE SULFATE 2 MG/1 ML DISP.SYRIN IV PRN (20:45)
[2018-05-11] MEDS ORDERED: NITROGLYCERIN OINT 1 GM PACKET TP PRN (20:45)
[2018-05-11] MEDS: POTASSIUM CHLORIDE 50 ML IV SCH ×2 (20:46→22:56)
--- NOTE | 2018-05-11 20:51 | NUR ---
Arielle - [facility] [phone]
--- NOTE | 2018-05-11 20:52 | NUR ---
Attempted to call report. RN unavailable, will call back. Will cont to monitor.
--- NOTE | 2018-05-11 20:57 | NUR ---
Report given to FANNY Mcfarland
[2018-05-11] MEDS ORDERED: ONDANSETRON 4 MG/2 ML VIAL ONE (20:58)
[2018-05-11] MEDS ORDERED: ACETAMINOPHEN 325 MG TABLET PO PRN (21:30)
--- NOTE | 2018-05-11 21:32 | NUR ---
Pt. admitted to tele , under care of Sherri, SAVANNA Belongs List completed
--- NOTE | 2018-05-11 21:35 | NUR ---
Received pt in Tele unit, under care of Sherri MISSION PLANNER. Pt alert and oriented x3, cooperative with care. Shows no signs of acute distress. Tele placed, noted to be sinus rhythm with HR 82. Pertinent assessments done. Pt has no complaints of chest pain at this time. Pt made aware of plan of care. Unit orientation provided. Bed in low, locked position with side rails up x2. Call light within reach. Will continue to monitor closely and carry out all orders.
[2018-05-11] MEDS ORDERED: DEXTROSE 50% 50 ML DISP.SYRIN IV PRN (21:45)
--- NOTE | 2018-05-11 22:30 | NUR ---
Pt states that he is not allergic and has never had any reactions to morphine sulfate. Pharmacy made aware.
[2018-05-11] MEDS ORDERED: SIMVASTATIN 20 MG TABLET PO SCH (23:00)
[2018-05-11] MEDS ORDERED: TRAZODONE 100 MG TABLET PO ONE (23:00)
[2018-05-12 00:21] LABS: CARBON DIOXIDE 28 mmol/L (21-32); CHLORIDE 102 mmol/L (98-107); CREATININE 2.1 mg/dL (0.6-1.3); GLUCOSE 249 mg/dL (74-106); POTASSIUM 3.1 mmol/L (3.5-5.1); UREA NITROGEN, BLOOD 26 mg/dL (7-18)
[2018-05-12] MEDS: MAGNESIUM SULFATE/D5W 100 ML IV SCH ×3 (00:30→03:10)
[2018-05-12 00:53] VITALS: BP 111/55
[2018-05-12] MEDS: ACETAMINOPHEN 325 MG TABLET PO PRN ×2 (03:10→22:50)
[2018-05-12 05:18] VITALS: BP 115/62
[2018-05-12 05:19] LABS: *BILIRUBIN,URIN NEGATIVE (NEGATIVE); *BLOOD, URINE 3+ (NEGATIVE); *CLARITY,URINE TURBID (CLEAR); *COLOR,URINE YELLOW (YELLOW); *KETONES,URINE TRACE (NEGATIVE); *PROTEIN,URINE 3+ (NEGATIVE); *UROBILINOGEN,URINE 0.2 E.U./dl (NORMAL); LEUKOCYTE ESTERASE ,URINE 2+ (NEGATIVE); NITRITE, URINE NEGATIVE (NEGATIVE); PH,URINE 5.5 (5.0-8.0); UGLUCOSE TRACE (NEGATIVE)
[2018-05-12 05:38] LABS: BACTERIA,URINE MODERATE /HPF (NONE SEEN); RBC,URINE TNTC /HPF (0-3); SQUAMOUS EPITHELIAL CELL,UR MODERATE /HPF (NONE SEEN); WBC,URINE TNTC /HPF (0-3)
[2018-05-12 06:16] LABS: BASOPHILS # (AUTO) 0.1 K/uL (0.0-8.0); BASOPHILS % (AUTO) 0.8 % (0.0-2.0); EOSINOPHILS # (AUTO) 0.2 K/uL (0.0-0.7); EOSINOPHILS % (AUTO) 3.2 % (0.0-7.0); HEMOGLOBIN 11.7 g/dL (12.5-16.3); LYMPHOCYTES # (AUTO) 2.5 K/uL (20.0-40.0); LYMPHOCYTES % (AUTO) 33.4 % (20.5-51.5); MEAN CORPUSCULAR HEMOGLOBIN 31.2 uug (23.8-33.4); MEAN CORPUSCULAR HGB CONC 35 g/dL (32.5-36.3); MEAN CORPUSCULAR VOLUME 90.3 fL (73.0-96.2); MONOCYTES # (AUTO) 0.6 K/uL (2.0-10.0); NEUTROPHILS % (AUTO) 54.6 % (38.5-71.5); PLATELET COUNT (AUTO) 234 K/uL (152-348); RED BLOOD CELL COUNT(AUTO) 3.76 MIL/uL (4.06-5.63); WHITE BLOOD COUNT (AUTO) 7.4 K/uL (3.6-10.2)
[2018-05-12 06:32] LABS: CARBON DIOXIDE 28 mmol/L (21-32); CHLORIDE 102 mmol/L (98-107); CHOLESTEROL 252 mg/dL (<200); CREATININE 2.1 mg/dL (0.6-1.3); HDL CHOLESTEROL 33 mg/dL (40-60); MAGNESIUM 2.3 mg/dL (1.8-2.4); PHOSPHOROUS 3.3 mg/dL (2.5-4.9); POTASSIUM 3.1 mmol/L (3.5-5.1); TRIGLYCERIDES 249 MG/DL (30-150); UREA NITROGEN, BLOOD 30 mg/dL (7-18)
[2018-05-12 06:36] LABS: GLUCOSE 301 mg/dL (74-106)
[2018-05-12 06:39] LABS: THYROID STIMULATING HORMONE 1.193 mIU/mL (0.358-3.740)
--- NOTE | 2018-05-12 06:50 | NUR ---
Pt. resting comfortably in bed. Pt easily arousable and cooperative. Tele sinus rhythm with with occasional PVCs at HR 60. Oxygen 2L NC at bedside PRN. Safety precautions implemented and comfort measures, bed locked and lowest position. Critical lab value of glucose 301 noted, MD aware and notified. No new orders. Will endorse continuity of care accordingly.
[2018-05-12] MEDS: BLOOD SUGAR DIAGNOSTIC 1 EACH STRIP VI SCH ×4 (06:56→20:36)
--- NOTE | 2018-05-12 07:30 | NUR ---
start of shift note Patient in bed asleep. No signs of distress. Report received from shift commander RN. Right FA iv hep locked.
[2018-05-12] MEDS: PANTOPRAZOLE SODIUM 40 MG TABLET.DR PO SCH (08:47)
[2018-05-12] MEDS: MULTIVITAMINS,THERAPEUTIC TABLET PO SCH (08:47)
[2018-05-12] MEDS: CITALOPRAM 20 MG TABLET PO SCH (08:48)
[2018-05-12] MEDS: QUETIAPINE FUMARATE 100 MG TABLET PO SCH (08:48)
[2018-05-12] MEDS: TAMSULOSIN HCL 0.4 MG CAP.SR.24H PO SCH (08:48)
[2018-05-12] MEDS: ASCORBIC ACID 500 MG TABLET PO SCH (08:49)
[2018-05-12] MEDS: ENOXAPARIN SODIUM 40 MG/0.4 ML DISP.SYRIN SQ SCH (08:50)
[2018-05-12] MEDS: INSULIN REGULAR, HUMAN 300 UNIT/3 ML VIAL SQ PRN ×2 (08:54→12:32)
[2018-05-12] MEDS: AMLODIPINE 5 MG TABLET PO SCH (08:58)
[2018-05-12] MEDS ORDERED: ASPIRIN 325 MG TABLET PO SCH (09:00)
[2018-05-12] MEDS ORDERED: Medication Not On Formulary EA (Ascorbic Acid (Vitamin C) 500 MG) PO SCH (09:00)
[2018-05-12] MEDS ORDERED: Medication Not On Formulary EA (Multivitamin (Multi Vitamin Daily) 1 EACH) PO SCH (09:00)
[2018-05-12] MEDS ORDERED: MORPHINE SULFATE 4 MG/1 ML DISP.SYRIN IV PRN (10:00)
[2018-05-12] MEDS: ASPIRIN EC 81 MG TABLET.DR PO SCH (10:45)
[2018-05-12] MEDS ORDERED: POTASSIUM CHLORIDE 20 MEQ TAB.PRT.SR PO ONE (11:15)
--- NOTE | 2018-05-12 11:20 | NUR ---
PATIENT WAS NOT GIVEN THE BABY ASPIRIN BECAUSE ASPIRIN 325MG WAS GIVEN THIS AM ORDERED. PATIENT WILL RESUME BABY ASPIRIN 05/13/18 IN AM.
[2018-05-12 11:38] VITALS: BP 108/51
[2018-05-12] MEDS: CEPHALEXIN MONOHYDRATE 250 MG CAPSULE PO SCH ×2 (14:10→21:12)
[2018-05-12 15:02] VITALS: BP 116/57
[2018-05-12] MEDS: ONDANSETRON 4 MG/2 ML VIAL IV PRN (15:15)
--- NOTE | 2018-05-12 17:44 | NUR ---
END OF SHIFT NOTE PATIENT AWAKE, ALERT, ORIENTED. FORGETFUL AT TIMES. PATIENT DENIED DEPRESSION OR SUICIDAL THOUGHTS. PATIENT DENIED CHEST PAIN OR EPIGASTRIC PAIN. VITAL SIGNS STABLE THROUGHOUT THE SHIFT. IV HL AND FLUSHING WELL. PATIENT IS SR-SB 50-60'S ON CT SCAN SPECIAL PROCEDURES TECHNOLOGIST. PATIENT IS ORDERED FOR STRESS TEST ON MONDAY AND IS TO BE NPO AFTER MIDNIGHT ON MONDAY NIGHT. PATIENT INCONTINENT OF URINE AND USES A DIAPER TO URINATE. SKILLED NURSE WAS UNABLE TO COLLECT URINE C&S. PATIENT NEEDS A STOOL SPECIMEN COLLECTION BUT HAS NOT HAD A BOWEL MOVEMENT TODAY.
--- NOTE | 2018-05-12 18:50 | NUR ---
URINE SAMPLE COLLECTED, SENT TO LAB FOR URINE CULTURES
--- NOTE | 2018-05-12 19:01 | NUR ---
PATIENT STATED THAT HE IS FEELING SAD. HE SAID HE DOES NOT WANT TO GO BACK TO HIS BOARD AND CARE BECAUSE HE DOESN'T LIKE IT THERE AND HE FEELS SAD THAT HE IS FROM HIS . WILL CONTACT SHIRA SEYMOUR NP FOR PSYCH CONSULT.
--- NOTE | 2018-05-12 19:38 | NUR ---
Orders per DUPLEX TRIMMER: Psych consult due to patient verbalizing sadness and hx of psychosis
--- NOTE | 2018-05-12 19:50 | NUR ---
RECEIVED IN BED ALERT ORIENTED, TELE READING RHYTHM SINUS ANDREI 60'S, NO SOB NO CHEST PAIN AT THIS TIME. ON OXYGEN 1LPM OXYGEN SAT 94%, PATIENT HAS NO S/S OF HYPO/HYPERGLYCEMIA NOTED, CONTINENT OF BLADDER, CALL LIGHT WITHIN REACH. CONT TO MONITOR.
[2018-05-12 19:51] LABS: *BILIRUBIN,URIN NEGATIVE (NEGATIVE); *BLOOD, URINE 3+ (NEGATIVE); *CLARITY,URINE CLOUDY (CLEAR); *COLOR,URINE DARK YELLOW (YELLOW); *KETONES,URINE NEGATIVE (NEGATIVE); *PROTEIN,URINE 1+ (NEGATIVE); *UROBILINOGEN,URINE 0.2 E.U./dl (NORMAL); LEUKOCYTE ESTERASE ,URINE 2+ (NEGATIVE); NITRITE, URINE POSITIVE (NEGATIVE); UGLUCOSE NEGATIVE (NEGATIVE)
[2018-05-12 20:08] VITALS: BP 125/65
[2018-05-12 20:13] LABS: BACTERIA,URINE MODERATE /HPF (NONE SEEN); RBC,URINE TNTC /HPF (0-3); SQUAMOUS EPITHELIAL CELL,UR FEW /HPF (NONE SEEN)
[2018-05-12 20:16] LABS: *CREATININE,URINE 192.8 mg/dL (30-125); *URINE TOTAL PROTEIN RANDOM 67.3 mg/dL (<150/24HR)
[2018-05-12] MEDS: EZETIMIBE 10 MG TABLET PO SCH (20:35)
[2018-05-12] MEDS: ATORVASTATIN 40 MG TABLET PO SCH (20:35)
[2018-05-12] MEDS: TRAZODONE 50 MG TABLET PO SCH (20:35)
[2018-05-12] MEDS: INSULIN REGULAR, HUMAN 300 UNITS/3 ML VIAL SQ PRN (20:39)
[2018-05-12] MEDS ORDERED: INSULIN GLARGINE,HUM 300 UNITS/3 ML CARTRIDGE SQ SCH (21:00)
[2018-05-13 00:17] VITALS: BP 113/49
[2018-05-13 04:31] VITALS: BP_SYST 118; BP_SYST 165; BP_DIAS 73; BP_DIAS 85
[2018-05-13] MEDS: CEPHALEXIN MONOHYDRATE 250 MG CAPSULE PO SCH ×3 (05:58→22:18)
[2018-05-13] MEDS: BLOOD SUGAR DIAGNOSTIC 1 EACH STRIP VI SCH ×4 (05:58→20:12)
[2018-05-13 06:16] LABS: BASOPHILS # (AUTO) 0.1 K/uL (0.0-8.0); EOSINOPHILS # (AUTO) 0.4 K/uL (0.0-0.7); EOSINOPHILS % (AUTO) 5.2 % (0.0-7.0); HEMATOCRIT 33.1 % (36.7-47.1); HEMOGLOBIN 11.7 g/dL (12.5-16.3); LYMPHOCYTES # (AUTO) 2.5 K/uL (20.0-40.0); LYMPHOCYTES % (AUTO) 34.3 % (20.5-51.5); MEAN CORPUSCULAR HEMOGLOBIN 31.3 uug (23.8-33.4); MEAN CORPUSCULAR HGB CONC 35 g/dL (32.5-36.3); MONOCYTES # (AUTO) 0.5 K/uL (2.0-10.0); MONOCYTES % (AUTO) 6.9 % (0.0-11.0); NEUTROPHILS # (AUTO) 3.8 K/uL (1.8-8.9); NEUTROPHILS % (AUTO) 52.6 % (38.5-71.5); PLATELET COUNT (AUTO) 228 K/uL (152-348); RED BLOOD CELL COUNT(AUTO) 3.72 MIL/uL (4.06-5.63); WHITE BLOOD COUNT (AUTO) 7.2 K/uL (3.6-10.2)
[2018-05-13 06:30] LABS: ALANINE AMINOTRANSFERASE 15 U/L (16-63); ALKALINE PHOSPHATASE 75 U/L (50-136); ASPARTATE AMINOTRANSFERASE 7 U/L (15-37); BILIRUBIN,TOTAL 0.3 mg/dL (0.2-1.0); CARBON DIOXIDE 29 mmol/L (21-32); CHLORIDE 104 mmol/L (98-107); CREATINE KINASE, TOTAL 17 U/L (39-308); CREATININE 1.9 mg/dL (0.6-1.3); GLUCOSE 280 mg/dL (74-106); PHOSPHOROUS 3.3 mg/dL (2.5-4.9); POTASSIUM 3.5 mmol/L (3.5-5.1); TOTAL PROTEIN, SERUM 6.2 g/dL (6.4-8.2); UREA NITROGEN, BLOOD 29 mg/dL (7-18)
--- NOTE | 2018-05-13 06:47 | NUR ---
PATIENT SLEPT MOST OF THE NIGHT, NO SOB NO CHEST PAIN, TELE RHYTHM SINUS ANDRIE AT 58 TO 60, OXYGEN SAT WNL, PATIENT STILL EXPRESSED OF BEING DEPRESSED, CONTINUE TO REDIRECT PATIENT, AND EDUCATE PATIENT THAT ANTIDEPRESSANT MEDICATION DOES NOT WORKS RIGHT A WAY, AND IT TAKES TIME, NO S/S OF HYPO/HYPERGYLCEMIA NOTED, CONT TO MONITOR.
[2018-05-13] MEDS: MULTIVITAMINS,THERAPEUTIC TABLET PO SCH (08:25)
[2018-05-13] MEDS: PANTOPRAZOLE SODIUM 40 MG TABLET.DR PO SCH (08:25)
[2018-05-13] MEDS: ASPIRIN EC 81 MG TABLET.DR PO SCH (08:25)
[2018-05-13] MEDS: TAMSULOSIN HCL 0.4 MG CAP.SR.24H PO SCH (08:25)
[2018-05-13] MEDS: AMLODIPINE 5 MG TABLET PO SCH (08:26)
[2018-05-13] MEDS: CITALOPRAM 20 MG TABLET PO SCH (08:26)
[2018-05-13] MEDS: ASCORBIC ACID 500 MG TABLET PO SCH (08:27)
[2018-05-13] MEDS: QUETIAPINE FUMARATE 100 MG TABLET PO SCH (08:27)
[2018-05-13] MEDS: ENOXAPARIN SODIUM 40 MG/0.4 ML DISP.SYRIN SQ SCH (08:29)
[2018-05-13] MEDS: INSULIN REGULAR, HUMAN 300 UNIT/3 ML VIAL SQ PRN ×3 (08:30→18:18)
[2018-05-13 11:20] VITALS: BP 126/75
[2018-05-13] MEDS: DULOXETINE 30 MG CAPSULE.DR PO SCH (12:18)
[2018-05-13 15:20] VITALS: BP 113/52
[2018-05-13 19:00] VITALS: BP 156/75
[2018-05-13] MEDS: HYDROCODONE/APAP 5-325MG TABLET PO PRN (19:30)
--- NOTE | 2018-05-13 19:31 | NUR ---
PT HAS BEEN COMPLIANT WITH ALL MEDICATION AND NURSING CARE. ESPINOZA CATHETER INSERTED PER REED CLEANER ORDERS: DUE TO NOTED BLOOD CLOTS IN THE URINE. PT WAS COMPLIANT WITH ESPINOZA CATH AFTER EXPLAINING RISK AND BENEFITS.
--- NOTE | 2018-05-13 19:40 | NUR ---
Pt alert and oriented x3, cooperative. Tele noted to be sinus rhythm with HR 70. Oxygen sat 96% room air. Pt has no complaints of chest pain at this time. Pt shows no signs of acute distress. Discussed and reviewed plan of care. Safety precautions implemented, bed on low locked position. Call light within reach. Will continue to monitor and carry out orders.
[2018-05-13] MEDS: ATORVASTATIN 40 MG TABLET PO SCH (20:00)
[2018-05-13] MEDS: TRAZODONE 50 MG TABLET PO SCH (20:00)
[2018-05-13] MEDS: EZETIMIBE 10 MG TABLET PO SCH (20:00)
[2018-05-13] MEDS: INSULIN REGULAR, HUMAN 300 UNITS/3 ML VIAL SQ PRN (20:15)
[2018-05-13] MEDS ORDERED: INSULIN GLARGINE,HUM 300 UNITS/3 ML CARTRIDGE SQ SCH (21:00)
[2018-05-13] MEDS: ACETAMINOPHEN 325 MG TABLET PO PRN (23:07)
--- NOTE | 2018-05-13 23:30 | NUR ---
Received pt in Tele unit, under care of Sherri CORRALES. Pt alert and oriented x1, anxious and worried. Discussed plan of care. Tele placed, noted to be sinus rhythm with HR 88. Oxygen sat at 96% room air. Pertinent assessments done, skin intact. Shows no s/s of acute distress, no complaints of pain at this time. Safety precautions and comfort measures implemented. Will continue to monitor closely. Addendum: 05/14/18 at 0319 by ANAI CASTANON RN ERROR, WRONG PATIENT
[2018-05-14] VITALS: BP 133/65
[2018-05-14 04:00] VITALS: BP 126/57
[2018-05-14] MEDS: CEPHALEXIN MONOHYDRATE 250 MG CAPSULE PO SCH ×3 (06:19→21:30)
--- NOTE | 2018-05-14 06:30 | NUR ---
Pt awake and alert. Tele noted sinus rhythm with HR 62. All needs met. Pt maintained NPO status after midnight. No complaints of pain at this time. No SOB. Safety precautions implemented. Call light within reach. Will endorse plan of care to day shift nurse.
[2018-05-14] MEDS: INSULIN REGULAR, HUMAN 300 UNIT/3 ML VIAL SQ PRN ×3 (06:46→16:33)
[2018-05-14] MEDS: BLOOD SUGAR DIAGNOSTIC 1 EACH STRIP VI SCH ×4 (06:46→21:12)
--- NOTE | 2018-05-14 08:00 | NUR ---
Pt is in no acute distress. No c/o chest pain. Tele SNR no ectopy. Pt Kept NPO for Lexiscan stress test @ 900 this am. IV on right FA 18 gauge flushing without any difficulty. Edema noted on left lower extremity +2 and right LE with +1 edema. R/A with sat of 96%. Call light is within reach.
[2018-05-14] MEDS: DULOXETINE 30 MG CAPSULE.DR PO SCH ×2 (09:00→14:39)
[2018-05-14] MEDS ORDERED: REGADENOSON 0.4 MG/5 ML PREFILLED SYR IV ONE (09:30)
--- NOTE | 2018-05-14 11:30 | NUR ---
Received pt from Nuclear test. Pt has poor appetite. Encouraged pt to eat. Pt has flat affect. No SI noted with patient. Call light is within reach.
[2018-05-14 11:45] VITALS: BP 163/86
[2018-05-14] MEDS: ONDANSETRON 4 MG/2 ML VIAL IV PRN ×2 (12:18→16:30)
[2018-05-14] MEDS: MULTIVITAMINS,THERAPEUTIC TABLET PO SCH (12:21)
[2018-05-14] MEDS: PANTOPRAZOLE SODIUM 40 MG TABLET.DR PO SCH (12:21)
[2018-05-14] MEDS: TAMSULOSIN HCL 0.4 MG CAP.SR.24H PO SCH (12:21)
[2018-05-14] MEDS: ASCORBIC ACID 500 MG TABLET PO SCH (12:22)
[2018-05-14] MEDS: AMLODIPINE 5 MG TABLET PO SCH (12:22)
[2018-05-14] MEDS: ASPIRIN EC 81 MG TABLET.DR PO SCH (12:23)
[2018-05-14] MEDS: risperiDONE 0.25 MG TABLET PO SCH ×2 (12:23→16:30)
[2018-05-14] MEDS: ENOXAPARIN SODIUM 40 MG/0.4 ML DISP.SYRIN SQ SCH (12:23)
[2018-05-14] MEDS: BENZTROPINE MESYLATE 0.5 MG TABLET PO SCH (12:31)
[2018-05-14 15:47] VITALS: BP 153/73
--- NOTE | 2018-05-14 18:01 | NUR ---
Pt is in no acute distress. Call light is within reach.
[2018-05-14] MEDS: HYDROCODONE/APAP 5-325MG TABLET PO PRN (18:52)
--- NOTE | 2018-05-14 19:45 | NUR ---
RECEIVED IN BED ALERT ORIENTED, NO SOB NO CHEST PAIN, NOTED, RHYTHM SINUS RHYTHM AT THIS TIME, ESPINOZA CATH PATENT DRAINING WITH TEA COLOR URINE IN MODERATE AMOUNT, ENCOURAGED PATIENT TO DRINK WATER, CONT TO MONITOR. MONITOR FOR BLOOD CLOTS FROM ESPINOZA CATH.
[2018-05-14] MEDS: METOPROLOL TARTRATE 25 MG TABLET PO SCH (20:07)
[2018-05-14] MEDS: EZETIMIBE 10 MG TABLET PO SCH (20:07)
[2018-05-14] MEDS: ATORVASTATIN 40 MG TABLET PO SCH (20:07)
[2018-05-14] MEDS: TRAZODONE 50 MG TABLET PO SCH (20:07)
[2018-05-14 20:14] VITALS: BP 131/72
[2018-05-14] MEDS ORDERED: INSULIN GLARGINE,HUM 300 UNITS/3 ML CARTRIDGE SQ SCH (21:00)
[2018-05-14] MEDS: INSULIN REGULAR, HUMAN 300 UNITS/3 ML VIAL SQ PRN (21:20)
[2018-05-14] MEDS: ACETAMINOPHEN 325 MG TABLET PO PRN (21:30)
[2018-05-15 00:36] VITALS: BP 115/61
[2018-05-15] MEDS: HYDROCODONE/APAP 5-325MG TABLET PO PRN ×3 (00:41→21:38)
[2018-05-15 05:07] LABS: A/G RATIO 0.9 (0.7-1.7); ALBUMIN 2.7 g/dL (2.9-4.4); ALPHA-1-GLOBULIN 0.2 g/dL (0.0-0.4); ALPHA-2-GLOBULIN 0.7 g/dL (0.4-1.0); GAMMA GLOBULIN 1.1 g/dL (0.4-1.8); M-SPIKE Not Observed g/dL (Not Observed)
[2018-05-15] MEDS: CEPHALEXIN MONOHYDRATE 250 MG CAPSULE PO SCH ×3 (05:18→21:37)
[2018-05-15] MEDS: BLOOD SUGAR DIAGNOSTIC 1 EACH STRIP VI SCH ×4 (05:23→20:25)
--- NOTE | 2018-05-15 05:26 | NUR ---
PATIENT SLEPT MOST OF THE NIGHT, NO SOB NO CHEST PAIN NOTED, TELE MONITOR SINUS RHYTHM SINUS ANDREI, CONT ON PAIN MANAGEMENT, ESPINOZA CATH WITH HEMATURIA ENCOURAGED PATIENT TO DRINK FLUIDS, ESPINOZA PATENT WITH SMALL CLOTS NOTED, CONT TO MONITOR.
[2018-05-15 05:29] VITALS: BP 136/66
[2018-05-15 06:59] LABS: BASOPHILS # (AUTO) 0.1 K/uL (0.0-8.0); EOSINOPHILS # (AUTO) 0.3 K/uL (0.0-0.7); EOSINOPHILS % (AUTO) 3.3 % (0.0-7.0); HEMATOCRIT 32.1 % (36.7-47.1); HEMOGLOBIN 11.2 g/dL (12.5-16.3); LYMPHOCYTES # (AUTO) 2.6 K/uL (20.0-40.0); LYMPHOCYTES % (AUTO) 31.8 % (20.5-51.5); MEAN CORPUSCULAR HEMOGLOBIN 31.5 uug (23.8-33.4); MEAN CORPUSCULAR HGB CONC 35 g/dL (32.5-36.3); MEAN CORPUSCULAR VOLUME 89.9 fL (73.0-96.2); MONOCYTES # (AUTO) 0.6 K/uL (2.0-10.0); NEUTROPHILS # (AUTO) 4.6 K/uL (1.8-8.9); NEUTROPHILS % (AUTO) 56.9 % (38.5-71.5); PLATELET COUNT (AUTO) 214 K/uL (152-348); RED BLOOD CELL COUNT(AUTO) 3.57 MIL/uL (4.06-5.63); WHITE BLOOD COUNT (AUTO) 8.1 K/uL (3.6-10.2)
[2018-05-15 07:11] LABS: CARBON DIOXIDE 30 mmol/L (21-32); CHLORIDE 103 mmol/L (98-107); CREATININE 1.8 mg/dL (0.6-1.3); GLUCOSE 181 mg/dL (74-106); MAGNESIUM 1.6 mg/dL (1.8-2.4); PHOSPHOROUS 3.4 mg/dL (2.5-4.9); POTASSIUM 3.3 mmol/L (3.5-5.1); UREA NITROGEN, BLOOD 26 mg/dL (7-18)
[2018-05-15] MEDS: INSULIN REGULAR, HUMAN 300 UNIT/3 ML VIAL SQ PRN ×3 (08:20→18:58)
[2018-05-15] MEDS: ASPIRIN EC 81 MG TABLET.DR PO SCH (08:24)
[2018-05-15] MEDS: BENZTROPINE MESYLATE 0.5 MG TABLET PO SCH (08:24)
[2018-05-15] MEDS: MULTIVITAMINS,THERAPEUTIC TABLET PO SCH (08:24)
[2018-05-15] MEDS: ASCORBIC ACID 500 MG TABLET PO SCH (08:24)
[2018-05-15] MEDS: AMLODIPINE 5 MG TABLET PO SCH (08:24)
[2018-05-15] MEDS: PANTOPRAZOLE SODIUM 40 MG TABLET.DR PO SCH (08:24)
[2018-05-15] MEDS: DULOXETINE 30 MG CAPSULE.DR PO SCH ×2 (08:24→12:48)
[2018-05-15] MEDS: TAMSULOSIN HCL 0.4 MG CAP.SR.24H PO SCH (08:24)
[2018-05-15] MEDS: risperiDONE 0.25 MG TABLET PO SCH ×2 (08:24→15:43)
[2018-05-15] MEDS: ENOXAPARIN SODIUM 40 MG/0.4 ML DISP.SYRIN SQ SCH (08:25)
[2018-05-15] MEDS: METOPROLOL TARTRATE 25 MG TABLET PO SCH ×2 (09:00→20:26)
[2018-05-15] MEDS ORDERED: POTASSIUM CHLORIDE 20 MEQ TAB.PRT.SR PO ONE (10:45)
[2018-05-15] MEDS ORDERED: MAGNESIUM SULFATE/D5W 100 ML IV SCH (10:45)
[2018-05-15 11:00] VITALS: BP 103/48
[2018-05-15 15:52] VITALS: BP 106/52
--- NOTE | 2018-05-15 18:15 | NUR ---
END OF SHIFT NOTE PATIENT ALERT, ORIENTED, COOPERATIVE. PATIENT STATED HE IS DEPRESSED DUE TO SEPARATION FROM . VITAL SIGNS STABLE THROUGHOUT THE SHIFT. RIGHT ARM IV IN PLACE FLUSHING WELL. SB ON MONITOR IN 40'S-50'S. ABLE TO WALK WITH PT TODAY. POTASSIUM AND MAGNESIUM REPLACED ORDERED.
[2018-05-15 19:13] VITALS: BP 129/74
--- NOTE | 2018-05-15 20:05 | NUR ---
Received pt in bed, AAO x 4 watching television. No acute distress noted. Denies pain or discomfort at this time. Verbally responsive and able to make needs known. All safety measures and fall precautions maintained. Call light and all personal belongings within reach. Will continue to monitor.
[2018-05-15] MEDS: ATORVASTATIN 40 MG TABLET PO SCH (20:25)
[2018-05-15] MEDS: EZETIMIBE 10 MG TABLET PO SCH (20:25)
[2018-05-15] MEDS: TRAZODONE 50 MG TABLET PO SCH (20:25)
[2018-05-15] MEDS: INSULIN REGULAR, HUMAN 300 UNITS/3 ML VIAL SQ PRN (20:31)
[2018-05-15] MEDS ORDERED: INSULIN GLARGINE,HUM 300 UNITS/3 ML CARTRIDGE SQ SCH (21:00)
[2018-05-16] MEDS: ACETAMINOPHEN 325 MG TABLET PO PRN (00:12)
[2018-05-16 03:19] VITALS: BP 127/62
[2018-05-16] MEDS: CEPHALEXIN MONOHYDRATE 250 MG CAPSULE PO SCH ×2 (06:20→14:18)
[2018-05-16] MEDS: BLOOD SUGAR DIAGNOSTIC 1 EACH STRIP VI SCH ×3 (06:30→16:19)
--- NOTE | 2018-05-16 06:41 | NUR ---
Pt slept comfortably throughout shift. Medicated PRN with pain medication per MD order. All medications given as ordered, tolerated well. No acute distress. All needs anticipated and met accordingly. Blood sugar checked and noted to be 134. Safety maintained. Call light and all personal belongings within reach. Will continue to monitor. Will endorse to next shift accordingly.
--- NOTE | 2018-05-16 07:20 | NUR ---
PATIENT RECEIVED ASLEEP ON BED, NO ACUTE DISTRESS NOTED IV ACCESS ON RIGHT FOREARM #18 TKO, INTACT AND PATENT. FC IN PLACE DRAINING HEMATURIA. BLOOD GLUCOSE THIS AM 134 WILL GIVE 2 UNITS OF INSULIN BEFORE BREAKFAST. COMFORT MEASURES PROVIDED. WILL CONTINUE TO MONITOR CLOSELY. CALL LIGHT WITHIN REACH.
[2018-05-16] MEDS: INSULIN REGULAR, HUMAN 300 UNIT/3 ML VIAL SQ PRN (07:43)
[2018-05-16] MEDS: ASCORBIC ACID 500 MG TABLET PO SCH (08:05)
[2018-05-16] MEDS: PANTOPRAZOLE SODIUM 40 MG TABLET.DR PO SCH (08:05)
[2018-05-16] MEDS: MULTIVITAMINS,THERAPEUTIC TABLET PO SCH (08:05)
[2018-05-16] MEDS: TAMSULOSIN HCL 0.4 MG CAP.SR.24H PO SCH (08:05)
[2018-05-16] MEDS: DULOXETINE 30 MG CAPSULE.DR PO SCH ×2 (08:05→12:34)
[2018-05-16] MEDS: risperiDONE 0.25 MG TABLET PO SCH ×3 (08:06→17:12)
[2018-05-16] MEDS: ASPIRIN EC 81 MG TABLET.DR PO SCH (08:06)
[2018-05-16] MEDS: BENZTROPINE MESYLATE 0.5 MG TABLET PO SCH (08:06)
[2018-05-16] MEDS: AMLODIPINE 5 MG TABLET PO SCH (08:06)
[2018-05-16] MEDS: METOPROLOL TARTRATE 25 MG TABLET PO SCH (08:09)
--- NOTE | 2018-05-16 08:30 | NUR ---
METOPROLOL HELD, PATIENTS HEART RATE 55. WILL CONTINUE TO MONITOR
[2018-05-16] MEDS: ENOXAPARIN SODIUM 40 MG/0.4 ML DISP.SYRIN SQ SCH (08:47)
[2018-05-16 11:24] VITALS: BP 170/77
[2018-05-16] MEDS ORDERED: hydrALAZINE HCL 25 MG TABLET PO PRN (12:30)
[2018-05-16 15:40] VITALS: BP 157/84
[2018-05-16] MEDS ORDERED: INFLUENZA VACCINE 2018-2019 0.5 ML DISP.SYRIN IM ONE (15:45)
[2018-05-16] MEDS ORDERED: HYDROCORTISONE 0.5% TOP SCH (16:15)
[2018-05-16] MEDS ORDERED: ASPI-618 PO (16:39)
[2018-05-16] MEDS ORDERED: HYDR25TA86 PO (16:39)
[2018-05-16] MEDS ORDERED: RISP0.253 PO (16:39)
[2018-05-16] MEDS ORDERED: DULO30CA2 PO (16:39)
[2018-05-16] MEDS ORDERED: ATOR20TA PO (16:39)
[2018-05-16] MEDS ORDERED: ACID1TAB4 PO (16:39)
[2018-05-16] MEDS ORDERED: TAMS-3 PO (16:39)
[2018-05-16] MEDS ORDERED: Blood Sugar Diagnostic VI (16:39)
[2018-05-16] MEDS ORDERED: CEPH250C PO (16:39)
[2018-05-16] MEDS ORDERED: BENZ0.5T43 PO (16:39)
[2018-05-16] MEDS ORDERED: RIVA10TA PO (16:39)
[2018-05-16] MEDS ORDERED: DEXT50DI8 IV (16:39)
[2018-05-16] MEDS ORDERED: EZET10TA13 PO (16:39)
[2018-05-16] MEDS ORDERED: HYDR28.33 TOP (16:39)
[2018-05-16] MEDS ORDERED: Insulin Glargine,Hum SQ (16:39)
[2018-05-16] MEDS ORDERED: DOCU-141 PO (16:39)
[2018-05-16] MEDS ORDERED: METO25TA6 PO (16:39)
[2018-05-16] MEDS ORDERED: INSU100V28 SQ (16:39)
[2018-05-16] MEDS ORDERED: FURO-152 PO (16:53)
[2018-05-16 17:13] VITALS: BP 165/81
[2018-05-16] MEDS ORDERED: HYDROCORTISONE 0.5% CREAM 28.35 GM TUBE TP SCH (17:30)
--- NOTE | 2018-05-16 19:16 | NUR ---
PATIENT DISCHARGED IN STABLE CONDITION TO [facility]. REPORT GIVEN TO CANDELARIO ESCOBEDO. DISCHARGE PAPERS AND INSTRUCTIONS GIVEN AND EXPLAINED TO PATIENT. PATIENT LEFT HOSPITAL VIA AMBULANCE ACCOMPANIED BY 2 MATERIALS DIRECTOR.
== END 2018-05-16 19:17 | DRG 205 ==
LOC: ER 18:21 → TELE 21:19 → MED 05-15 17:22
PROVIDERS: ADMIT Registered Nurse; ATTEND Registered Nurse
DX: M94.0 Chondrocostal junction syndrome [Tietze] (principal); N17.0 Acute kidney failure with tubular necrosis; I50.33 Acute on chronic diastolic (congestive) heart failure; I13.0 Hypertensive heart and chronic kidney disease with heart failure and stage 1 through stage 4 chronic kidney disease, or unspecified chronic kidney disease; E44.1 Mild protein-calorie malnutrition; D68.59 Other primary thrombophilia; J84.9 Interstitial pulmonary disease, unspecified; N39.0 Urinary tract infection, site not specified; F31.5 Bipolar disorder, current episode depressed, severe, with psychotic features; E11.22 Type 2 diabetes mellitus with diabetic chronic kidney disease; E11.65 Type 2 diabetes mellitus with hyperglycemia; N18.9 Chronic kidney disease, unspecified; Z79.4 Long term (current) use of insulin; G89.4 Chronic pain syndrome; Z68.33 Body mass index [BMI] 33.0-33.9, adult; E78.5 Hyperlipidemia, unspecified; Z95.1 Presence of aortocoronary bypass graft; N40.0 Benign prostatic hyperplasia without lower urinary tract symptoms; I25.10 Atherosclerotic heart disease of native coronary artery without angina pectoris; B96.1 Klebsiella pneumoniae [K. pneumoniae] as the cause of diseases classified elsewhere; Z16.11 Resistance to penicillins; Z91.81 History of falling; Z91.14 Patient's other noncompliance with medication regimen; Z87.440 Personal history of urinary (tract) infections; Z87.891 Personal history of nicotine dependence; Z86.718 Personal history of other venous thrombosis and embolism; Z82.49 Family history of ischemic heart disease and other diseases of the circulatory system; L21.9 Seborrheic dermatitis, unspecified; K82.4 Cholesterolosis of gallbladder; K75.81 Nonalcoholic steatohepatitis (NASH); K40.20 Bilateral inguinal hernia, without obstruction or gangrene, not specified as recurrent; I45.10 Unspecified right bundle-branch block; F03.90 Unspecified dementia, unspecified severity, without behavioral disturbance, psychotic disturbance, mood disturbance, and anxiety; E87.6 Hypokalemia; E83.42 Hypomagnesemia; D63.8 Anemia in other chronic diseases classified elsewhere; Z86.73 Personal history of transient ischemic attack (TIA), and cerebral infarction without residual deficits; M19.90 Unspecified osteoarthritis, unspecified site; I70.0 Atherosclerosis of aorta; J84.10 Pulmonary fibrosis, unspecified; M51.36 Other intervertebral disc degeneration, lumbar region
CPT/HCPCS: 36415; 70030-TC; 70450; 71045; 78452; 83690; 83735; 83970; 84100; 84155; 84156; 84165; 84300; 84443; 85025; 87077; 87086; 90686; 93005; A4217; A4663; A9502; G0378; J1650; J1815; J2405; J2785; J3475; J3480; J3490; J7050

== ENCOUNTER 2018-05-17 01:44 | Inpatient (IN) | payer MEDICARE, BC ==
[~2018-05-17] VITALS: Ht 177.8 cm; Wt 103.1 kg
[~2018-05-17 01:44] MED LIST changes: +ACID1TAB4 PO; +ASPI-618 PO; +ATOR20TA PO; +BENZ0.5T43 PO; -BLOO-140 IN; +Blood Sugar Diagnostic VI; +CEPH250C PO; -CITA40TA22 PO; +DEXT50DI8 IV; +DOCU-141 PO; +DULO30CA2 PO; +EZET10TA13 PO; +FURO-152 PO; +HYDR25TA86 PO; +HYDR28.33 TOP; +INSU100V28 SQ; -INSU3INS6 SQ; +Insulin Glargine,Hum SQ; +METO25TA6 PO; -QUET100T PO; +RISP0.253 PO; +RIVA10TA PO; +TAMS-3 PO; -TAMS0.4C34 PO
--- NOTE | 2018-05-17 02:09 | NUR ---
Patient brought in by private ambulance from [facility] for psych eval. Per report from facility patient was getting admitted in [facility] after being discharge From 2nd Floor Tele when he verbalized SI. Patient upon arrival denies SI. Arived with mcfarlane cath draining clear yellow urine
[2018-05-17 02:44] LABS: BASOPHILS # (AUTO) 0.1 K/uL (0.0-8.0); BASOPHILS % (AUTO) 0.8 % (0.0-2.0); EOSINOPHILS # (AUTO) 0.2 K/uL (0.0-0.7); EOSINOPHILS % (AUTO) 1.7 % (0.0-7.0); HEMATOCRIT 39.1 % (36.7-47.1); HEMOGLOBIN 13.5 g/dL (12.5-16.3); LYMPHOCYTES # (AUTO) 2.4 K/uL (20.0-40.0); LYMPHOCYTES % (AUTO) 27.3 % (20.5-51.5); MEAN CORPUSCULAR HEMOGLOBIN 31.1 uug (23.8-33.4); MEAN CORPUSCULAR HGB CONC 35 g/dL (32.5-36.3); MEAN CORPUSCULAR VOLUME 90.1 fL (73.0-96.2); MONOCYTES # (AUTO) 0.7 K/uL (2.0-10.0); MONOCYTES % (AUTO) 8.2 % (0.0-11.0); NEUTROPHILS # (AUTO) 5.5 K/uL (1.8-8.9); PLATELET COUNT (AUTO) 234 K/uL (152-348); RED BLOOD CELL COUNT(AUTO) 4.34 MIL/uL (4.06-5.63); WHITE BLOOD COUNT (AUTO) 8.9 K/uL (3.6-10.2)
[2018-05-17 02:45] LABS: *BLOOD, URINE 3+ (NEGATIVE); *CLARITY,URINE CLOUDY (CLEAR); *COLOR,URINE RED (YELLOW); *KETONES,URINE TRACE (NEGATIVE); LEUKOCYTE ESTERASE ,URINE NEGATIVE (NEGATIVE); NITRITE, URINE NEGATIVE (NEGATIVE); UGLUCOSE TRACE (NEGATIVE)
[2018-05-17 02:50] LABS: *BILIRUBIN,URIN 1+ (NEGATIVE); *PROTEIN,URINE 3+ (NEGATIVE)
[2018-05-17 02:53] LABS: CARBON DIOXIDE 31 mmol/L (21-32); CHLORIDE 101 mmol/L (98-107); CREATININE 1.5 mg/dL (0.6-1.3); GLUCOSE 197 mg/dL (74-106); POTASSIUM 3.4 mmol/L (3.5-5.1); UREA NITROGEN, BLOOD 20 mg/dL (7-18)
[2018-05-17 03:05] LABS: ALANINE AMINOTRANSFERASE 21 U/L (16-63); ALKALINE PHOSPHATASE 84 U/L (50-136); ASPARTATE AMINOTRANSFERASE 13 U/L (15-37); BILIRUBIN,DIRECT 0.1 mg/dL (0.0-0.2); BILIRUBIN,TOTAL 0.4 mg/dL (0.2-1.0); TOTAL PROTEIN, SERUM 7.5 g/dL (6.4-8.2)
[2018-05-17 03:07] LABS: *AMPHETAMINE, URINE NEGATIVE (NEGATIVE); *BARBITURATE, URINE NEGATIVE (NEGATIVE); *CANNABINOID, URINE NEGATIVE (NEGATIVE); *COCCAINE, URINE NEGATIVE (NEGATIVE); *OPIATE, URINE POSITIVE (NEGATIVE); *PHENCYCLIDINE SCREEN,URINE NEGATIVE (NEGATIVE); ETHANOL < 3 MG/DL (0-0)
[2018-05-17 03:08] LABS: ACETAMINOPHEN < 2.0 ug/mL (10-30)
--- NOTE | 2018-05-17 03:10 | NUR ---
Medically cleared by Dr Soto.
[2018-05-17 03:12] LABS: RBC,URINE TNTC /HPF (0-3)
[2018-05-17 03:13] LABS: BACTERIA,URINE NONE SEEN /HPF (NONE SEEN); SQUAMOUS EPITHELIAL CELL,UR FEW /HPF (NONE SEEN); WBC,URINE 0-3 /HPF (0-3)
--- NOTE | 2018-05-17 03:17 | NUR ---
Attempted to paged Chapin Anderson SAND SHOVELER sevreal kassandra. Unable to contact Chapin due to phone has busy tone. Contacted Libby Michelle SAND SHOVELER and informed her that I was not able to contact Chapin. Was given alternate # but number was not working as well. Libby Michelle is unable to send another SAND SHOVELER at this time
--- NOTE | 2018-05-17 03:29 | NUR ---
Note harish in EDM - 05/17/18 at 0333 by CHOLO Patient is cursing at staff, screaming, threatening staff. Security at bedside for this patients due to his threats towards staff. Patient is refusing care at this time. He was hostile towards staff upon initial evaluation attempt and refused all aspects of assessment.
--- NOTE | 2018-05-17 03:33 | NUR ---
Libby Michelle FERRY CAPTAIN called back to inform me to call Bethanie Solomon RN to see if she will cover for Chapin Anderson.
--- NOTE | 2018-05-17 03:40 | NUR ---
Chapin Anderson called back. Will eval patient. ETA 1hr
--- NOTE | 2018-05-17 04:30 | NUR ---
Chapin Anderson into eval patient
--- NOTE | 2018-05-17 05:02 | NUR ---
Per Chapin Anderson from PET Team, patient does not meet 5150 criteria. Will be admitted to 2nd floor psych overflow.
[2018-05-17] MEDS ORDERED: MAG HYDROX/AL HYDROX/SIMETH 30 ML LIQUID UDC PO PRN (05:30)
[2018-05-17] MEDS ORDERED: MAGNESIUM HYDROXIDE 30 ML LIQUID UDC PO PRN (05:30)
--- NOTE | 2018-05-17 05:45 | NUR ---
Admitted a 72 years old make with Diagnosis of Major Depression. Voluntary admission. Patient AAOx4. In no acute distress. Denies any pain or SOB. Admitted feeling depressed. Denies any suicidal thoughts. Calm and cooperative with care. Will continue to monitor. Routine admission care done. Safety measure initiated and call pandey within reach. Addendum: 05/17/18 at 0640 by ANDRÉS NOVOA RN Murry catheter intact and draining via gravity.
--- NOTE | 2018-05-17 06:20 | NUR ---
Telephone call to Doctor Gardner and informed of new admission. Awaiting for admission orders.
[2018-05-17 06:24] VITALS: BP 172/91
[2018-05-17] MEDS: CLONAZEPAM 0.5 MG TABLET PO PRN ×2 (06:37→23:53)
[2018-05-17] MEDS: ACETAMINOPHEN 325 MG TABLET PO PRN (06:38)
--- NOTE | 2018-05-17 07:05 | NUR ---
Received report from maintenance technician 3rd shift nurse, patient in bed, reports pain 8/10. Wants medication for anxiety despite receiving medication recently. Currently in bed, bed in low position, side rails upx2.
[2018-05-17] MEDS: hydrALAZINE HCL 25 MG TABLET PO PRN (09:32)
[2018-05-17 11:43] VITALS: BP 156/91
[2018-05-17] MEDS ORDERED: DEXTROSE 50% 50 ML DISP.SYRIN IV PRN (11:45)
[2018-05-17] MEDS ORDERED: HYDROCORTISONE 0.5% TOP SCH (11:45)
[2018-05-17] MEDS ORDERED: ACETAMINOPHEN 325 MG TABLET PO PRN (11:45)
[2018-05-17] MEDS: risperiDONE 0.25 MG TABLET PO SCH ×3 (12:23→16:53)
[2018-05-17] MEDS: FUROSEMIDE 20 MG TABLET PO SCH (12:23)
[2018-05-17] MEDS: BENZTROPINE MESYLATE 0.5 MG TABLET PO SCH (12:23)
[2018-05-17] MEDS: DULOXETINE 30 MG CAPSULE.DR PO SCH (12:25)
[2018-05-17] MEDS ORDERED: POTASSIUM CHLORIDE 20 MEQ POWDER PACKET PO ONE (12:45)
[2018-05-17] MEDS: CEPHALEXIN MONOHYDRATE 250 MG CAPSULE PO SCH ×2 (13:22→21:20)
[2018-05-17] MEDS: HYDROCORTISONE 0.5% CREAM 28.35 GM TUBE TOP SCH ×2 (13:22→20:04)
[2018-05-17 16:02] VITALS: BP 157/87
[2018-05-17] MEDS: BLOOD SUGAR DIAGNOSTIC 1 EACH STRIP VI SCH ×2 (16:48→20:26)
[2018-05-17] MEDS: ACIDOPHILUS/BULGARICUS CHEW TAB PO SCH (16:53)
[2018-05-17] MEDS: INSULIN REGULAR, HUMAN 300 UNIT/3 ML VIAL SQ PRN ×2 (16:54→20:30)
--- NOTE | 2018-05-17 17:00 | NUR ---
Gps/Turbine Inspector- Received report from Marielos Haddad, Receieved from second floor via wheel chair, alert,oriented x3, claimed he does not want to be in a Psych.[place], informed he is a patient here in Mental Health unit, and was on the second floor for Psych.overflow. Patient requesting to be moved back on the second floor, wants private room with TV. Patient was oriented to unit settings . Face flushed, mcfarlane cath.intact patent connected to drainage bag. Reviewed safety. Weight 226 lbs., B/P 169/90-HR 99, 02 sat 96%, resp.18, temp. 97.5 . Oriented to unit settings.Safety reviewed and emphasized.
--- NOTE | 2018-05-17 17:05 | NUR ---
patient was transferred to gps unit. patient stated that he doesn't like it because they dont have a TV in the room. Patient also stated that he will just say that he has chest pain so that he gets transferred back up to medical unit. Patient had episodes of tearfulness and thoughts of despair throughout the day. patient has been cooperative with medications and care throughout shift.
--- NOTE | 2018-05-17 18:29 | NUR ---
Gps/Polisher Eyeglass Frames- Patient kept calling out Nurse, Nurse, pt. requesting to be moved back to second floor , bed alarm on, monitored needs,safety reviewed and emphasized.
[2018-05-17 19:30] VITALS: BP 162/95
[2018-05-17] MEDS: DOCUSATE SODIUM 100 MG CAPSULE PO SCH (20:02)
[2018-05-17] MEDS: TAMSULOSIN HCL 0.4 MG CAP.SR.24H PO SCH (20:03)
[2018-05-17] MEDS: EZETIMIBE 10 MG TABLET PO SCH (20:03)
[2018-05-17] MEDS: ATORVASTATIN 20 MG TABLET PO SCH (20:03)
[2018-05-17] MEDS: METOPROLOL TARTRATE 25 MG TABLET PO SCH (20:04)
[2018-05-17] MEDS: INSULIN GLARGINE,HUM 300 UNITS/3 ML CARTRIDGE SQ SCH (20:27)
[2018-05-17 21:14] VITALS: BP 133/68
[2018-05-17] MEDS: TEMAZEPAM 7.5 MG CAPSULE PO PRN (21:20)
--- NOTE | 2018-05-17 23:55 | NUR ---
GPS: Pt.still awake,anxious,needy and constantly calling out for no reason. Denied pain when asked. Sleeping pill given earlier was ineffective. Requesting for more meds.to make him sleep. Re-directed and re-assured frequently. Klonopin 0.5mg given for anxiety. Will monitor effectiveness. Safety emphasized.
[2018-05-18] MEDS: CEPHALEXIN MONOHYDRATE 250 MG CAPSULE PO SCH ×3 (06:23→21:05)
[2018-05-18] MEDS: BLOOD SUGAR DIAGNOSTIC 1 EACH STRIP VI SCH ×4 (06:33→20:53)
[2018-05-18 07:30] VITALS: BP 155/76
[2018-05-18] MEDS: MULTIVITAMINS,THERAPEUTIC TABLET PO SCH (08:32)
[2018-05-18] MEDS: BENZTROPINE MESYLATE 0.5 MG TABLET PO SCH (08:32)
[2018-05-18] MEDS: DULOXETINE 30 MG CAPSULE.DR PO SCH ×2 (08:32→13:13)
[2018-05-18] MEDS: ASCORBIC ACID 500 MG TABLET PO SCH (08:33)
[2018-05-18] MEDS: ACIDOPHILUS/BULGARICUS CHEW TAB PO SCH ×2 (08:33→16:52)
[2018-05-18] MEDS: METOPROLOL TARTRATE 25 MG TABLET PO SCH ×2 (08:33→20:03)
[2018-05-18] MEDS: AMLODIPINE 5 MG TABLET PO SCH (08:33)
[2018-05-18] MEDS: ASPIRIN EC 81 MG TABLET.DR PO SCH (08:33)
[2018-05-18] MEDS: risperiDONE 0.25 MG TABLET PO SCH ×3 (08:33→16:52)
[2018-05-18] MEDS: HYDROCORTISONE 0.5% CREAM 28.35 GM TUBE TOP SCH ×2 (08:37→20:11)
[2018-05-18] MEDS ORDERED: Medication Not On Formulary EA (Multivitamin (Multi Vitamin Daily) 1 EACH) PO SCH (09:00)
[2018-05-18] MEDS ORDERED: Medication Not On Formulary EA (Ascorbic Acid (Vitamin C) 500 MG) PO SCH (09:00)
--- NOTE | 2018-05-18 11:18 | NUR ---
WOUND CARE CONSULT: PT PRESENTS WITH RT EAR LESION AND RT BACK RAISED LESION, PRESENT ON ADMISSION. RECOMMEND SURGICAL CONSULT. PT ABLE TO ASSIST WITH TURNING AND REPOSITIONING IN BED. OLGA GU NOTED. SKIN PROTECTION RECOMMENDATIONS DISCUSSED WITH NURSING STAFF. WILL SEE PRN. CASTELLANOS IN AGREEMENT WITH PLAN OF CARE. Addendum: 05/18/18 at 1120 by MAYELIN FALL RN Amended: Links added.
[2018-05-18] MEDS: INSULIN REGULAR, HUMAN 300 UNIT/3 ML VIAL SQ PRN ×3 (12:45→20:57)
--- NOTE | 2018-05-18 13:18 | NUR ---
Intal Discharge Note: Currently pt is a resident at [facility] ; [address] [place] [address]]. Prior to , prior to living at he was a resident at [facility] residential Care [address] [address]. ]. Pt unhappy with current living situation will likely need new placement. Pt may be able to return back to [facility] residential care or SNF placement may be possible. Pts contact are Son LucasedwigeFreedom lastic ([phone]) and daughter Clementine Ureña ([phone]) Plate Worker will continue to plan a safe and proper discharge.
[2018-05-18] MEDS: CLONAZEPAM 0.5 MG TABLET PO PRN ×2 (14:36→21:40)
--- NOTE | 2018-05-18 14:37 | NUR ---
Gps/Maintenance Assistant- Complained of feeling depressed, still, requesting more anti depressant med. claimed he also feels, anxious, offered prn clonopin o.5 mg 1 tab. Encouraged to continue to verbalized feelings and needs.Safety reviewed and emphasized.
[2018-05-18 14:49] VITALS: BP 136/69
--- NOTE | 2018-05-18 16:00 | NUR ---
Gps/Ict Educator- Patient verbalized feelings of increasingly depressed, encouraged continued verbalizations of his feelings and needs, patient claimed" I am more depressed, needed more dose for anti-depression . Safety reviewed emphasized. Staff made aware ,closely monitored.
--- NOTE | 2018-05-18 16:30 | NUR ---
Activity Group Note: GOAL Patient will actively participate in the group activity of the day or relax in the activity room with fellow patients. INTERVENTION Oyster Bed Worker invited patient to participate in a group activity consisting of music, books puzzles and arts & crafts held from 2 -2:45 pm in the activities room. RESPONSE Patient expressed disinterest in participating in arts and crafts or relaxing in the activity room with peers. Patient remained in their room resting during that time. PLAN Patient will be invited to attend the next group activity.
--- NOTE | 2018-05-18 16:45 | NUR ---
Gps/Dispatcher Clerk- Murry catheter was dc'd as ordered by Edwina CORRALES. patient was well informed, bladder training in progress, urinal placed with in his reach.
[2018-05-18] MEDS: RIVAROXABAN 10 MG TABLET PO SCH (17:30)
[2018-05-18] MEDS ORDERED: LIDOCAINE 2%-EPI 1:100,000 20 ML VIAL TP ONE (18:45)
[2018-05-18] MEDS: NEOMY/BACITRAC/POLYMI OINT 28.35 GM TUBE TOP SCH (20:01)
[2018-05-18] MEDS: ATORVASTATIN 20 MG TABLET PO SCH (20:03)
[2018-05-18] MEDS: EZETIMIBE 10 MG TABLET PO SCH (20:03)
[2018-05-18] MEDS: TAMSULOSIN HCL 0.4 MG CAP.SR.24H PO SCH (20:03)
[2018-05-18 20:08] VITALS: BP 134/64
[2018-05-18] MEDS: DOCUSATE SODIUM 100 MG CAPSULE PO SCH (20:09)
[2018-05-18] MEDS: INSULIN GLARGINE,HUM 300 UNITS/3 ML CARTRIDGE SQ SCH (20:58)
[2018-05-18] MEDS: Z GUARD REMEDY PASTE 57 GM TUBE TOP PRN (20:59)
[2018-05-18] MEDS: TEMAZEPAM 7.5 MG CAPSULE PO PRN (21:05)
--- NOTE | 2018-05-18 21:43 | NUR ---
gps: patient c/o anxiety.klonopin 0.5 mg po given per patient requested.
--- NOTE | 2018-05-18 22:45 | NUR ---
GPS: PATIENT IS CALM NOW. PRN EFFECTIVE FOR ANXIETY.
[2018-05-19] MEDS: HYDROCODONE/APAP 5-325MG TABLET PO PRN ×2 (00:45→21:47)
--- NOTE | 2018-05-19 06:18 | NUR ---
GPS: REMAIN UNCOOPERATIVE WITH CARE. WONDERING AROUND IN HALLWAY.USES W/C TO AMBULATE. SLEEPING MEDICATION GIVEN X1,ANXIETY MEDICATION GIVEN X1 AND NORCO GIVEN FOR PAIN THROUGH THE NIGHT. SLEPT 5 HRS THROUGH THE NIGHT, CONTINUE PLAN OF CARE.
[2018-05-19] MEDS: BLOOD SUGAR DIAGNOSTIC 1 EACH STRIP VI SCH ×4 (06:32→20:59)
[2018-05-19 07:30] VITALS: BP 126/63
[2018-05-19] MEDS: DULOXETINE 30 MG CAPSULE.DR PO SCH ×2 (08:12→12:31)
[2018-05-19] MEDS: BENZTROPINE MESYLATE 0.5 MG TABLET PO SCH (08:12)
[2018-05-19] MEDS: risperiDONE 0.25 MG TABLET PO SCH ×3 (08:12→17:00)
[2018-05-19] MEDS: ASCORBIC ACID 500 MG TABLET PO SCH (08:12)
[2018-05-19] MEDS: ACIDOPHILUS/BULGARICUS CHEW TAB PO SCH ×2 (08:12→17:00)
[2018-05-19] MEDS: MULTIVITAMINS,THERAPEUTIC TABLET PO SCH (08:12)
[2018-05-19] MEDS: ASPIRIN EC 81 MG TABLET.DR PO SCH (08:12)
[2018-05-19] MEDS: METOPROLOL TARTRATE 25 MG TABLET PO SCH ×2 (08:13→20:47)
[2018-05-19] MEDS: AMLODIPINE 5 MG TABLET PO SCH (08:13)
[2018-05-19] MEDS: HYDROCORTISONE 0.5% CREAM 28.35 GM TUBE TOP SCH ×2 (08:14→20:48)
[2018-05-19] MEDS: NEOMY/BACITRAC/POLYMI OINT 28.35 GM TUBE TOP SCH (08:14)
[2018-05-19] MEDS: FUROSEMIDE 20 MG TABLET PO SCH (11:16)
[2018-05-19] MEDS: INSULIN REGULAR, HUMAN 300 UNIT/3 ML VIAL SQ PRN ×3 (11:30→21:01)
[2018-05-19] MEDS ORDERED: LIDOCAINE 2%-EPI 1:100,000 20 ML VIAL TP ONE (12:08)
--- NOTE | 2018-05-19 14:15 | NUR ---
RECEIVED CALL FROM MAGGY FROM [facility] TO NOTIFY PT IS POSITIVE SLIGHT GROWTH MRSA NARES. MD WILL BE NOTIFIED. PT TO BE ISOLATED.
[2018-05-19 15:27] VITALS: BP 136/68
[2018-05-19] MEDS: RIVAROXABAN 10 MG TABLET PO SCH (17:05)
[2018-05-19 20:10] VITALS: BP 149/86
[2018-05-19] MEDS: ATORVASTATIN 20 MG TABLET PO SCH (20:47)
[2018-05-19] MEDS: EZETIMIBE 10 MG TABLET PO SCH (20:47)
[2018-05-19] MEDS: TAMSULOSIN HCL 0.4 MG CAP.SR.24H PO SCH (20:47)
[2018-05-19] MEDS: DOCUSATE SODIUM 100 MG CAPSULE PO SCH (20:48)
[2018-05-19] MEDS: MUPIROCIN 2% OINT 22 GM TUBE NS SCH (20:50)
[2018-05-19] MEDS: Z GUARD REMEDY PASTE 57 GM TUBE TOP PRN (20:51)
[2018-05-19] MEDS: INSULIN GLARGINE,HUM 300 UNITS/3 ML CARTRIDGE SQ SCH (21:02)
[2018-05-20] MEDS: TEMAZEPAM 7.5 MG CAPSULE PO PRN ×2 (00:44→21:42)
--- NOTE | 2018-05-20 05:51 | NUR ---
GPS: REMAIN COOPERATIVE WITH CARE.USES W/C TO AMBULATE. RESTORIL 7.5 MG PO GIVEN FOR SLEEP X1, AND NORCO GIVEN FOR PAIN. SLEPT 8 HRS THROUGH THE NIGHT, CONTINUE PLAN OF CARE.
--- NOTE | 2018-05-20 05:57 | NUR ---
GPS: SLEPT 8 HRS THROUGH THE NIGHT.
[2018-05-20] MEDS: BLOOD SUGAR DIAGNOSTIC 1 EACH STRIP VI SCH ×4 (06:20→21:50)
[2018-05-20 07:55] VITALS: BP 119/64
[2018-05-20] MEDS ORDERED: PERMETHRIN 5% CREAM 60 GM TUBE TP ONE (09:00)
[2018-05-20] MEDS ORDERED: LIDOCAINE 2%-EPI 1:100,000 20 ML VIAL TP ONE (09:00)
[2018-05-20] MEDS: DULOXETINE 30 MG CAPSULE.DR PO SCH ×2 (09:52→12:24)
[2018-05-20] MEDS: MULTIVITAMINS,THERAPEUTIC TABLET PO SCH (09:52)
[2018-05-20] MEDS: BENZTROPINE MESYLATE 0.5 MG TABLET PO SCH (09:53)
[2018-05-20] MEDS: METOPROLOL TARTRATE 25 MG TABLET PO SCH ×2 (09:53→20:38)
[2018-05-20] MEDS: ASCORBIC ACID 500 MG TABLET PO SCH (09:53)
[2018-05-20] MEDS: ACIDOPHILUS/BULGARICUS CHEW TAB PO SCH ×2 (09:53→16:00)
[2018-05-20] MEDS: risperiDONE 0.25 MG TABLET PO SCH ×3 (09:53→16:01)
[2018-05-20] MEDS: AMLODIPINE 5 MG TABLET PO SCH (09:53)
[2018-05-20] MEDS: NEOMY/BACITRAC/POLYMI OINT 28.35 GM TUBE TOP SCH (09:54)
[2018-05-20] MEDS: HYDROCORTISONE 0.5% CREAM 28.35 GM TUBE TOP SCH ×2 (09:54→21:00)
[2018-05-20] MEDS: MUPIROCIN 2% OINT 22 GM TUBE NS SCH ×2 (09:54→21:00)
--- NOTE | 2018-05-20 11:16 | NUR ---
NOTED PATIENT BLEEDING FROM URINATED WITH LARGE AMOUNT ,DR BOLTON NOTIFIED WITH NEW ORDERED MADE.WILL CONTINUE CLOSE MONITORING.
[2018-05-20] MEDS: INSULIN REGULAR, HUMAN 300 UNIT/3 ML VIAL SQ PRN ×3 (12:26→21:35)
[2018-05-20 15:25] LABS: BASOPHILS # (AUTO) 0.1 K/uL (0.0-8.0); BASOPHILS % (AUTO) 1.6 % (0.0-2.0); EOSINOPHILS # (AUTO) 0.1 K/uL (0.0-0.7); EOSINOPHILS % (AUTO) 1.5 % (0.0-7.0); HEMATOCRIT 36.2 % (36.7-47.1); HEMOGLOBIN 12.3 g/dL (12.5-16.3); LYMPHOCYTES # (AUTO) 1.8 K/uL (20.0-40.0); LYMPHOCYTES % (AUTO) 23.8 % (20.5-51.5); MEAN CORPUSCULAR HEMOGLOBIN 31.2 uug (23.8-33.4); MEAN CORPUSCULAR HGB CONC 34 g/dL (32.5-36.3); MEAN CORPUSCULAR VOLUME 91.7 fL (73.0-96.2); MONOCYTES # (AUTO) 0.6 K/uL (2.0-10.0); MONOCYTES % (AUTO) 7.8 % (0.0-11.0); NEUTROPHILS % (AUTO) 65.3 % (38.5-71.5); PLATELET COUNT (AUTO) 225 K/uL (152-348); RED BLOOD CELL COUNT(AUTO) 3.95 MIL/uL (4.06-5.63); WHITE BLOOD COUNT (AUTO) 7.7 K/uL (3.6-10.2)
[2018-05-20 15:39] VITALS: BP 152/66
[2018-05-20 15:42] LABS: ALANINE AMINOTRANSFERASE 23 U/L (16-63); ALKALINE PHOSPHATASE 76 U/L (50-136); ASPARTATE AMINOTRANSFERASE 14 U/L (15-37); BILIRUBIN,TOTAL 0.4 mg/dL (0.2-1.0); CARBON DIOXIDE 29 mmol/L (21-32); CREATININE 1.7 mg/dL (0.6-1.3); GLUCOSE 188 mg/dL (74-106); MAGNESIUM 1.9 mg/dL (1.8-2.4); PHOSPHOROUS 3.7 mg/dL (2.5-4.9); TOTAL PROTEIN, SERUM 6.8 g/dL (6.4-8.2); UREA NITROGEN, BLOOD 19 mg/dL (7-18)
[2018-05-20 15:50] LABS: CHLORIDE 101 mmol/L (98-107)
[2018-05-20] MEDS ORDERED: POTASSIUM CHLORIDE 20 MEQ TAB.PRT.SR PO ONE (17:45)
--- NOTE | 2018-05-20 19:35 | NUR ---
RECEIVED PT AWAKE, ALERT,AND ORIENTEDX2. PT AGITATED. WANTS TO GO HOME AND DEMANDING TO LEAVE. SCREAMING, YELLING AND DISRUPTIVE IN MILIEU,DEPRESSED. DOCTOR AWARE OF THE BEHAVIOUR OF THE PT. SAFETY AND COMFORT PROVIDED. SITTER AT BEDSIDE FOR SAFETY. WILL CONTINUE TO MONITOR.
[2018-05-20 20:00] VITALS: BP 129/60
[2018-05-20] MEDS ORDERED: BENZTROPINE MESYLATE 2 MG/2 ML AMPUL IM ONE (20:30)
[2018-05-20] MEDS ORDERED: LORAZEPAM 2 MG/1 ML VIAL IM ONE (20:30)
[2018-05-20] MEDS ORDERED: HALOPERIDOL LACTATE 5 MG/1 ML VIAL IM ONE (20:30)
[2018-05-20] MEDS: CLONAZEPAM 0.5 MG TABLET PO PRN (20:32)
[2018-05-20] MEDS: TAMSULOSIN HCL 0.4 MG CAP.SR.24H PO SCH (20:33)
[2018-05-20] MEDS: DOCUSATE SODIUM 100 MG CAPSULE PO SCH (20:33)
[2018-05-20] MEDS: ATORVASTATIN 20 MG TABLET PO SCH (20:33)
[2018-05-20] MEDS: EZETIMIBE 10 MG TABLET PO SCH (20:33)
--- NOTE | 2018-05-20 20:45 | NUR ---
PT WAS SEEN BY THE CRISIS TEAM. PT WAS ORDERED 5150 GD. BEGINS 2044 AT1 TO 05/23/2018 AT 2045H. PT DURING FACE TO FACE ASSESSMENT PT IS ANGRY, SCREAMING, YELLING, AGITATED,DEMANDING TO LEAVE, ANXIOUS, RESTLESS, IRRITABLE, LABILE, UNPREDICTABLE, POOR INSIGHT AND IMPAIRED JUDGEMENT, MANIPULATIVE, DISRUPTIVE TO UNIT MILIEU, DEPRESSED WITH SI, DOES NOT RESPOND TO STAFF REDIRECTION.PT HAS HISTORY OF DEPRESSIVE DISORDER WITH PSYCHOTIC FEATURES. HAD PREVIOUS INPATIENT PSYCHOTIC TREATMENT IN [facility]. RN CONCURS WITH THE HOLD. UPON FACE TO FACE ASSESSMENT, PT REFLECT WHAT IS ON THE HOLD. PT AGREED TO CONTRACT FOR SAFETY. SITTER AT BEDSIDEFOR SAFETY. WILL CONTINUE TO MONITOR.
[2018-05-20] MEDS: INSULIN GLARGINE,HUM 300 UNITS/3 ML CARTRIDGE SQ SCH (21:35)
[2018-05-20] MEDS: hydrALAZINE HCL 25 MG TABLET PO PRN (21:37)
[2018-05-20] MEDS: HYDROCODONE/APAP 5-325MG TABLET PO PRN (23:25)
[2018-05-21 04:00] VITALS: BP 154/83
[2018-05-21] MEDS: ACETAMINOPHEN 325 MG TABLET PO PRN (05:15)
[2018-05-21] MEDS: hydrALAZINE HCL 25 MG TABLET PO PRN (05:15)
--- NOTE | 2018-05-21 06:59 | NUR ---
PT SLEPT 2HOURS AND 15 MINUTES. PT SHOWS NO SIGNS OF DISTRESS. SITTER AT BEDSIDE.PT FELT DEPRESSED.HE SAID HE IS ALONE. PT DIDN'T GET THE 3 IM MEDICATIONS THAT WAS PRECRIBED BY THE DOCTOR BECAUSE PT BECOME LESS ANXIOUS AND AGITATED.PT HAVE HEMATURIA STILL WITH SCANT AMOUNT.CHARGE NURSE NOTIFIED AND AWARE. WILL ENDORSE ACCORDINGLY TO DAYSHIFT NURSE FOR CONTINUITY OF CARE.
[2018-05-21] MEDS: BLOOD SUGAR DIAGNOSTIC 1 EACH STRIP VI SCH ×4 (07:06→20:34)
[2018-05-21 07:30] VITALS: BP 111/67
[2018-05-21] MEDS ORDERED: POTASSIUM CHLORIDE 10 MEQ TAB.PRT.SR PO SCH (09:00)
[2018-05-21] MEDS: DULOXETINE 30 MG CAPSULE.DR PO SCH ×2 (09:08→12:22)
[2018-05-21] MEDS: MULTIVITAMINS,THERAPEUTIC TABLET PO SCH (09:08)
[2018-05-21] MEDS: POTASSIUM CHLORIDE 20 MEQ POWDER PACKET PO SCH (09:09)
[2018-05-21] MEDS: ASCORBIC ACID 500 MG TABLET PO SCH (09:09)
[2018-05-21] MEDS: AMLODIPINE 5 MG TABLET PO SCH (09:09)
[2018-05-21] MEDS: BENZTROPINE MESYLATE 0.5 MG TABLET PO SCH (09:09)
[2018-05-21] MEDS: METOPROLOL TARTRATE 25 MG TABLET PO SCH ×2 (09:09→20:19)
[2018-05-21] MEDS: ACIDOPHILUS/BULGARICUS CHEW TAB PO SCH ×2 (09:09→16:48)
[2018-05-21] MEDS: risperiDONE 0.25 MG TABLET PO SCH ×3 (09:09→16:48)
--- NOTE | 2018-05-21 10:30 | NUR ---
STATED FEELING ANXIETY AND REQUESTED FOR MEDICATION TO CALM HIM DOWN KLONOPIN GIVEN ORDERED AND WILL CONTINUE TO OBSERVE.
[2018-05-21] MEDS: CLONAZEPAM 0.5 MG TABLET PO PRN ×2 (10:31→23:00)
[2018-05-21] MEDS: NEOMY/BACITRAC/POLYMI OINT 28.35 GM TUBE TOP SCH (10:32)
[2018-05-21] MEDS: Z GUARD REMEDY PASTE 57 GM TUBE TOP PRN (10:32)
[2018-05-21] MEDS: MUPIROCIN 2% OINT 22 GM TUBE NS SCH ×2 (10:32→20:26)
[2018-05-21] MEDS: HYDROCORTISONE 0.5% CREAM 28.35 GM TUBE TOP SCH ×2 (10:32→20:26)
[2018-05-21] MEDS: FUROSEMIDE 20 MG TABLET PO SCH (12:21)
[2018-05-21] MEDS: INSULIN REGULAR, HUMAN 300 UNIT/3 ML VIAL SQ PRN ×3 (12:25→20:32)
--- NOTE | 2018-05-21 13:55 | NUR ---
PER THE MENTAL HEALTH RN PATIENT ALREADY RECEIVED ELIMITE AND BATH LAST NITE UNKNOWN IF PATIENT WAS SCRAPED.
--- NOTE | 2018-05-21 15:00 | NUR ---
PATIENT SEEN AND EXAMINED BY LEO MARIE WITH NEW ORDERS ABD BOTED.
[2018-05-21 15:59] VITALS: BP 139/65
--- NOTE | 2018-05-21 18:08 | NUR ---
PATIENT SEEN AND EXAMINED BY DR HALL WITH NEW ORDERS AND NOTED
--- NOTE | 2018-05-21 18:28 | NUR ---
URINE OUTPUT IS HEMATURIA AT THIS TIME DARK RED IN COLOR SPECIMEN COLLECTED AND SENT TO THE LAB ORDERED.
[2018-05-21 19:18] LABS: *BILIRUBIN,URIN 3+ (NEGATIVE); *BLOOD, URINE 3+ (NEGATIVE); *CLARITY,URINE TURBID (CLEAR); *COLOR,URINE RED (YELLOW); *KETONES,URINE 2+ (NEGATIVE); *PROTEIN,URINE 3+ (NEGATIVE); LEUKOCYTE ESTERASE ,URINE 3+ (NEGATIVE); NITRITE, URINE NEGATIVE (NEGATIVE); PH,URINE 8.5 (5.0-8.0); UGLUCOSE TRACE (NEGATIVE)
[2018-05-21 19:21] LABS: BACTERIA,URINE FEW /HPF (NONE SEEN); RBC,URINE TNTC /HPF (0-3); SQUAMOUS EPITHELIAL CELL,UR FEW /HPF (NONE SEEN)
--- NOTE | 2018-05-21 19:25 | NUR ---
RECEIVED PT AWAKE, ALERT, AND ORIENTEDX2. PT SHOWS NO SIGNS OF DISTRESS. SITTER AT BEDSIDE. SAFETY AND COMFORT PROVIDED. WILL CONTINUE TO MONITOR. DAYSHIFT NURSE NOTIFIED DR. HALL REGARDING THAT LAB CALLED AND TOLD HER THAT THE URINE THAT WAS SENT WAS TOO BLOODY TO ANALYZE. DR AWARE AND ASKED THE NUMBER OF THE UROLOGIST DIRECTOR OF INFORMATICS. AT 1930H I SENT THE NUMBER OF DR. GIRARD TO DR. HALL. DR. HALL RECEIVED THE NUMBER. PT STABLE.
[2018-05-21 20:00] VITALS: BP 153/76
[2018-05-21] MEDS: ATORVASTATIN 20 MG TABLET PO SCH (20:19)
[2018-05-21] MEDS: TAMSULOSIN HCL 0.4 MG CAP.SR.24H PO SCH (20:19)
[2018-05-21] MEDS: DOCUSATE SODIUM 100 MG CAPSULE PO SCH (20:19)
[2018-05-21] MEDS: EZETIMIBE 10 MG TABLET PO SCH (20:19)
[2018-05-21] MEDS: INSULIN GLARGINE,HUM 300 UNITS/3 ML CARTRIDGE SQ SCH (20:32)
[2018-05-21] MEDS: TEMAZEPAM 7.5 MG CAPSULE PO PRN (23:33)
[2018-05-22] MEDS: HYDROCODONE/APAP 5-325MG TABLET PO PRN ×2 (01:21→23:41)
[2018-05-22] MEDS: ACETAMINOPHEN 325 MG TABLET PO PRN (03:06)
[2018-05-22 04:00] VITALS: BP 149/77
--- NOTE | 2018-05-22 06:15 | NUR ---
PT SLEPT 2 HOURS. PT SHOWS NO SIGNS OF DISTRESS. PRESCRIBED MEDICATION GIVEN AND PT TOLERATED IT WELL. SITTER AT BEDSIDE FOR SAFETY. UROLOGIST DR. YULIYA GIRARD CAME AND SEE THE PT. SAID TO JUST CONTINUE TO MONITOR THE PT URINE. PT HAS PAINLESS HUMATURIA. IT MIGHT BE FROM THE MEDICATIONS HE WAS TAKING LIKE XARELTO AND ASPIRIN PREVIOUSLY AND POSSIBLE UTI. PT CALM WHEN APPROACHED AND INTERACT WHEN ENGAGED. THE SLEEPING MEDICATIONS DISN'T WORKED ON HIM. SAFETY AND COMFORT PROVIDED.WILL ENDORSE TO DAYSTNFT NURSE FOR CONTINUITY OF CARE.
[2018-05-22] MEDS: BLOOD SUGAR DIAGNOSTIC 1 EACH STRIP VI SCH ×4 (06:30→20:50)
[2018-05-22 06:40] LABS: BASOPHILS # (AUTO) 0.1 K/uL (0.0-8.0); EOSINOPHILS # (AUTO) 0.3 K/uL (0.0-0.7); EOSINOPHILS % (AUTO) 3.5 % (0.0-7.0); HEMATOCRIT 33.6 % (36.7-47.1); HEMOGLOBIN 11.4 g/dL (12.5-16.3); LYMPHOCYTES # (AUTO) 3.1 K/uL (20.0-40.0); MEAN CORPUSCULAR HEMOGLOBIN 30.9 uug (23.8-33.4); MEAN CORPUSCULAR HGB CONC 34 g/dL (32.5-36.3); MEAN CORPUSCULAR VOLUME 91.4 fL (73.0-96.2); MONOCYTES # (AUTO) 0.6 K/uL (2.0-10.0); MONOCYTES % (AUTO) 7.1 % (0.0-11.0); NEUTROPHILS # (AUTO) 4.9 K/uL (1.8-8.9); NEUTROPHILS % (AUTO) 54.4 % (38.5-71.5); PLATELET COUNT (AUTO) 223 K/uL (152-348); RED BLOOD CELL COUNT(AUTO) 3.68 MIL/uL (4.06-5.63); WHITE BLOOD COUNT (AUTO) 9.1 K/uL (3.6-10.2)
[2018-05-22 06:58] LABS: CARBON DIOXIDE 26 mmol/L (21-32); CHLORIDE 103 mmol/L (98-107); CREATININE 1.4 mg/dL (0.6-1.3); GLUCOSE 208 mg/dL (74-106); MAGNESIUM 1.7 mg/dL (1.8-2.4); PHOSPHOROUS 3.4 mg/dL (2.5-4.9); POTASSIUM 3.1 mmol/L (3.5-5.1); UREA NITROGEN, BLOOD 17 mg/dL (7-18)
[2018-05-22 08:00] VITALS: BP 111/63
[2018-05-22] MEDS: INSULIN REGULAR, HUMAN 300 UNIT/3 ML VIAL SQ PRN ×4 (08:11→21:01)
[2018-05-22] MEDS: ACIDOPHILUS/BULGARICUS CHEW TAB PO SCH ×2 (08:58→16:27)
[2018-05-22] MEDS: ASCORBIC ACID 500 MG TABLET PO SCH (08:58)
[2018-05-22] MEDS: AMLODIPINE 5 MG TABLET PO SCH (08:59)
[2018-05-22] MEDS: BENZTROPINE MESYLATE 0.5 MG TABLET PO SCH (09:00)
[2018-05-22] MEDS: DULOXETINE 30 MG CAPSULE.DR PO SCH ×2 (09:00→12:29)
[2018-05-22] MEDS: MULTIVITAMINS,THERAPEUTIC TABLET PO SCH (09:00)
[2018-05-22] MEDS: risperiDONE 0.25 MG TABLET PO SCH ×3 (09:00→16:27)
[2018-05-22] MEDS: METOPROLOL TARTRATE 25 MG TABLET PO SCH ×2 (09:00→20:43)
[2018-05-22] MEDS: POTASSIUM CHLORIDE 20 MEQ POWDER PACKET PO SCH (09:01)
[2018-05-22] MEDS: MUPIROCIN 2% OINT 22 GM TUBE NS SCH ×2 (09:02→20:52)
[2018-05-22] MEDS: NEOMY/BACITRAC/POLYMI OINT 28.35 GM TUBE TOP SCH (09:02)
[2018-05-22] MEDS: HYDROCORTISONE 0.5% CREAM 28.35 GM TUBE TOP SCH ×2 (09:03→20:51)
--- NOTE | 2018-05-22 10:15 | NUR ---
PATIENT REFUSED TO HAVE PHYSICAL THERAPEUTIC EXERCISES ORDERED DESPITE ALL EXPLAINATION AND ENCOURAGEMENTS PATIENTS RIGHT TO REFUSE RESPESCTED WILL CONTINUE TO OBSERVE.
[2018-05-22] MEDS ORDERED: MAGNESIUM SULFATE/D5W 100 ML IV SCH (10:45)
[2018-05-22] MEDS ORDERED: POTASSIUM CHLORIDE 10 MEQ TAB.PRT.SR PO ONE (10:45)
[2018-05-22] MEDS ORDERED: MAGNESIUM OXIDE 400 MG TABLET PO ONE (11:30)
--- NOTE | 2018-05-22 11:30 | NUR ---
POTASSIUM LEVEL IS 3.1 AND MAG IS 1.7 KAILEE BLAIR AGRICULTURAL ECONOMICS TEACHER NOTIFIED WITH NEW ORDERS AND NOTED
[2018-05-22 16:10] VITALS: BP 153/79
[2018-05-22] MEDS: CLONAZEPAM 0.5 MG TABLET PO PRN ×2 (16:15→22:47)
--- NOTE | 2018-05-22 16:52 | NUR ---
PATIENT STATED THAT HIS BACK WAS ITCY CLEANSED AND LOTION APPLIED BUT HE STATED THAT HE IS STILL ITCHING KAILEE HOLLEY ELECTRIC TRUCK OPERATOR NOTIFIED WITH NEW ORDERS AND NOTED
[2018-05-22] MEDS ORDERED: HYDROCORTISONE 1% CREAM 30 GM TUBE TP PRN (17:00)
--- NOTE | 2018-05-22 18:25 | NUR ---
RELAXED RESTING DENIES DISCOMFORTS AT THIS TIME WILL CONTINUE TO OBSERVE.
[2018-05-22 19:00] VITALS: BP 135/59
--- NOTE | 2018-05-22 19:10 | NUR ---
RECEIVED PT AWAKE ON BED AAOX2, NO SIGNS OF ACUTE DISTRESS NOTED AT THIS TIME. ON 5150 HOLD, WITH 1:1 SITTER AT BEDSIDE FOR SAFETY. SAFETY MEASURES INITIATED.
[2018-05-22] MEDS: TEMAZEPAM 7.5 MG CAPSULE PO PRN (20:42)
[2018-05-22] MEDS: DOCUSATE SODIUM 100 MG CAPSULE PO SCH (20:43)
[2018-05-22] MEDS: SULFAMETH/TRIMETH 800/160 MG TABLET PO SCH (20:43)
[2018-05-22] MEDS: EZETIMIBE 10 MG TABLET PO SCH (20:43)
[2018-05-22] MEDS: TAMSULOSIN HCL 0.4 MG CAP.SR.24H PO SCH (20:43)
[2018-05-22] MEDS: ATORVASTATIN 20 MG TABLET PO SCH (20:43)
[2018-05-22] MEDS: INSULIN GLARGINE,HUM 300 UNITS/3 ML CARTRIDGE SQ SCH (21:06)
[2018-05-22] MEDS: diphenhydrAMINE 50 MG CAPSULE PO PRN (21:10)
[2018-05-23] MEDS: ACETAMINOPHEN 325 MG TABLET PO PRN (02:56)
[2018-05-23 04:00] VITALS: BP 130/58
[2018-05-23 06:26] LABS: BASOPHILS # (AUTO) 0.1 K/uL (0.0-8.0); BASOPHILS % (AUTO) 1.3 % (0.0-2.0); EOSINOPHILS # (AUTO) 0.3 K/uL (0.0-0.7); EOSINOPHILS % (AUTO) 3.4 % (0.0-7.0); HEMATOCRIT 33.1 % (36.7-47.1); HEMOGLOBIN 11.4 g/dL (12.5-16.3); LYMPHOCYTES % (AUTO) 31.9 % (20.5-51.5); MEAN CORPUSCULAR HEMOGLOBIN 31.4 uug (23.8-33.4); MEAN CORPUSCULAR HGB CONC 35 g/dL (32.5-36.3); MEAN CORPUSCULAR VOLUME 90.9 fL (73.0-96.2); MONOCYTES # (AUTO) 0.8 K/uL (2.0-10.0); NEUTROPHILS # (AUTO) 5.3 K/uL (1.8-8.9); NEUTROPHILS % (AUTO) 55.4 % (38.5-71.5); PLATELET COUNT (AUTO) 229 K/uL (152-348); RED BLOOD CELL COUNT(AUTO) 3.65 MIL/uL (4.06-5.63); WHITE BLOOD COUNT (AUTO) 9.5 K/uL (3.6-10.2)
[2018-05-23] MEDS: BLOOD SUGAR DIAGNOSTIC 1 EACH STRIP VI SCH ×4 (06:36→20:36)
[2018-05-23 06:38] LABS: CARBON DIOXIDE 27 mmol/L (21-32); CHLORIDE 103 mmol/L (98-107); CREATININE 1.3 mg/dL (0.6-1.3); GLUCOSE 185 mg/dL (74-106); MAGNESIUM 1.8 mg/dL (1.8-2.4); PHOSPHOROUS 3.2 mg/dL (2.5-4.9); POTASSIUM 3.1 mmol/L (3.5-5.1); UREA NITROGEN, BLOOD 14 mg/dL (7-18)
--- NOTE | 2018-05-23 06:50 | NUR ---
PT ABLE TO HAVE 5 HOURS OF SLEEP. WITH EPISODE OF AGITATION MANIFESTED BY CONSTANTLY YELLING AND SCREAMING DEMANDING FOR HIS VALUABLES, NOT EASILY REDIRECTED. PROVIDE COPY OF PT BELONGINGS AND REASSURE THAT PT VALUABLE ARE IN HOSPITAL SAFE AND WILL BE RETURNED ONCE DISCHARGE, PT VERBALIZED UNDERSTANDING. KEPT PT CLEAN, DRY, ASSISTED WITH TOILETING. SNACKS AND SKIN CARE PROVIDED. SAFE ENVIRONMENT MAINTAINED AT ALL TIMES. CONTINUE WITH 1:1 SITTING FOR SAFETY, RISK FOR INJURY. CONTINUE TO MONITOR. Addendum: 05/23/18 at 0714 by SOFIE MEDELLIN RN PT HAD NO COMPLAINTS OF PAINFUL URINATION THROUGHOUT THE NIGHT.
--- NOTE | 2018-05-23 07:15 | NUR ---
Received report from shift boss, patient in bed asleep, no distress noted, bed in low position, side rails up x 2, sitter at bedside.
[2018-05-23 08:34] VITALS: BP 125/60
[2018-05-23] MEDS: SULFAMETH/TRIMETH 800/160 MG TABLET PO SCH ×2 (08:58→20:28)
[2018-05-23] MEDS: MUPIROCIN 2% OINT 22 GM TUBE NS SCH ×2 (08:59→20:35)
[2018-05-23] MEDS: DULOXETINE 30 MG CAPSULE.DR PO SCH ×2 (08:59→12:13)
[2018-05-23] MEDS: BENZTROPINE MESYLATE 0.5 MG TABLET PO SCH (08:59)
[2018-05-23] MEDS: ACIDOPHILUS/BULGARICUS CHEW TAB PO SCH ×2 (08:59→16:47)
[2018-05-23] MEDS: POTASSIUM CHLORIDE 20 MEQ POWDER PACKET PO SCH (08:59)
[2018-05-23] MEDS: risperiDONE 0.25 MG TABLET PO SCH ×3 (09:01→16:47)
[2018-05-23] MEDS: METOPROLOL TARTRATE 25 MG TABLET PO SCH ×2 (09:01→20:21)
[2018-05-23] MEDS: AMLODIPINE 5 MG TABLET PO SCH (09:01)
[2018-05-23] MEDS: MULTIVITAMINS,THERAPEUTIC TABLET PO SCH (09:01)
[2018-05-23] MEDS: ASCORBIC ACID 500 MG TABLET PO SCH (09:01)
[2018-05-23] MEDS: HYDROCODONE/APAP 5-325MG TABLET PO PRN ×2 (09:02→21:58)
[2018-05-23] MEDS: INSULIN REGULAR, HUMAN 300 UNIT/3 ML VIAL SQ PRN ×4 (09:14→20:41)
[2018-05-23] MEDS: NEOMY/BACITRAC/POLYMI OINT 28.35 GM TUBE TOP SCH (09:21)
[2018-05-23] MEDS: HYDROCORTISONE 0.5% CREAM 28.35 GM TUBE TOP SCH ×2 (09:21→20:24)
[2018-05-23] MEDS ORDERED: POTASSIUM CHLORIDE 20 MEQ TAB.PRT.SR PO ONE (09:30)
[2018-05-23] MEDS: FUROSEMIDE 20 MG TABLET PO SCH (12:13)
--- NOTE | 2018-05-23 14:35 | NUR ---
Discharge Planning: ice cream vault worker spoke with MD about discharge and per MD, discharge is pending for tomorrow. ice cream vault worker called and left a voicemail for patient's son, Fermin [[phone]], informing him of pending discharge and inquiring if he had toured [facility] (patient was accepted). ice cream vault worker awaiting call back from son. ice cream vault worker also called and left a voicemail for Devora, linux system administrator [ ], at [facility] [[address] [place] [address]], where patient was living for approximately one year. Patient is welcomed back here if patient does not go to [facility]. As of now, discharge is pending and social services assistant will continue to plan a safe discharge and collaborate with MD and patient.
[2018-05-23 15:30] VITALS: BP 120/58
--- NOTE | 2018-05-23 16:13 | NUR ---
Firearms Report: tailings worker completed and submitted [employer] Firearms Report for 5250 GD certification.
--- NOTE | 2018-05-23 17:54 | NUR ---
Patient has been cooperative with care, took all his medication. No distress noted at this time. Vitals within normal throughout the shift. Patient afebrile. Isolation maintained. Call light within reach. Bed in low position. Side rails up x 2.
[2018-05-23 19:57] VITALS: BP 132/58
[2018-05-23] MEDS: ATORVASTATIN 20 MG TABLET PO SCH (20:20)
[2018-05-23] MEDS: EZETIMIBE 10 MG TABLET PO SCH (20:20)
[2018-05-23] MEDS: TAMSULOSIN HCL 0.4 MG CAP.SR.24H PO SCH (20:20)
[2018-05-23] MEDS: Z GUARD REMEDY PASTE 57 GM TUBE TOP PRN (20:24)
[2018-05-23] MEDS: TEMAZEPAM 7.5 MG CAPSULE PO PRN (20:27)
[2018-05-23] MEDS: DOCUSATE SODIUM 100 MG CAPSULE PO SCH (20:34)
[2018-05-23] MEDS: INSULIN GLARGINE,HUM 300 UNITS/3 ML CARTRIDGE SQ SCH (20:42)
[2018-05-24] MEDS: HYDROCODONE/APAP 5-325MG TABLET PO PRN (04:24)
[2018-05-24 05:14] VITALS: BP 165/83
[2018-05-24 06:47] LABS: HEMATOCRIT 32.2 % (36.7-47.1); HEMOGLOBIN 11.2 g/dL (12.5-16.3); LYMPHOCYTES % (AUTO) 28.8 % (20.5-51.5); MEAN CORPUSCULAR HEMOGLOBIN 31.6 uug (23.8-33.4); MEAN CORPUSCULAR HGB CONC 35 g/dL (32.5-36.3); MEAN CORPUSCULAR VOLUME 91.4 fL (73.0-96.2); NEUTROPHILS % (AUTO) 58.2 % (38.5-71.5); PLATELET COUNT (AUTO) 219 K/uL (152-348); RED BLOOD CELL COUNT(AUTO) 3.52 MIL/uL (4.06-5.63); WHITE BLOOD COUNT (AUTO) 8.8 K/uL (3.6-10.2)
[2018-05-24 06:48] LABS: BASOPHILS # (AUTO) 0.1 K/uL (0.0-8.0); EOSINOPHILS # (AUTO) 0.3 K/uL (0.0-0.7); LYMPHOCYTES # (AUTO) 2.5 K/uL (20.0-40.0); MONOCYTES # (AUTO) 0.7 K/uL (2.0-10.0); NEUTROPHILS # (AUTO) 5.1 K/uL (1.8-8.9)
--- NOTE | 2018-05-24 07:00 | NUR ---
PT ABLE TO HAVE 6 HOURS OF SLEEP. REMAINED CALM AND COMPLIANT WITH MEDICATIONS THROUGHOUT THE SHIFT. ON 5250 HOLD, WITH 1:1 SITTER AT BEDSIDE FOR SAFETY. ALL NEEDS ATTENDED AND MET. SAFE ENVIRONMENT MAINTAINED AT ALL TIMES
[2018-05-24 07:03] LABS: CARBON DIOXIDE 27 mmol/L (21-32); CHLORIDE 106 mmol/L (98-107); CREATININE 1.6 mg/dL (0.6-1.3); GLUCOSE 106 mg/dL (74-106); MAGNESIUM 1.7 mg/dL (1.8-2.4); PHOSPHOROUS 3.2 mg/dL (2.5-4.9); POTASSIUM 3.5 mmol/L (3.5-5.1); UREA NITROGEN, BLOOD 16 mg/dL (7-18)
--- NOTE | 2018-05-24 07:25 | NUR ---
PATIENT RECEIVED ON BED. ASLEEP. AAOX3. 1:1 SITTER AT BEDSIDE FOR SAFETY. APPEARS DEPRESSED BUT DENIES SI. SAFETY PRECAUTIONS OBSERVED AT ALL TIMES. NO COMPLAINS OF PAIN/DISCOMFORT. COMFORT MEASURES PROVIDED. CALL LIGHT WITHIN REACH. WILL CONTINUE TO MONITOR CLOSELY.
[2018-05-24] MEDS: BLOOD SUGAR DIAGNOSTIC 1 EACH STRIP VI SCH ×4 (07:44→21:23)
[2018-05-24] MEDS: ASCORBIC ACID 500 MG TABLET PO SCH (08:00)
[2018-05-24] MEDS: ACIDOPHILUS/BULGARICUS CHEW TAB PO SCH ×2 (08:00→16:45)
[2018-05-24] MEDS: BENZTROPINE MESYLATE 0.5 MG TABLET PO SCH (08:00)
[2018-05-24] MEDS: DULOXETINE 30 MG CAPSULE.DR PO SCH ×2 (08:00→12:13)
[2018-05-24] MEDS: SULFAMETH/TRIMETH 800/160 MG TABLET PO SCH ×2 (08:00→21:16)
[2018-05-24] MEDS: MULTIVITAMINS,THERAPEUTIC TABLET PO SCH (08:00)
[2018-05-24] MEDS: risperiDONE 0.25 MG TABLET PO SCH ×3 (08:00→16:45)
[2018-05-24] MEDS: METOPROLOL TARTRATE 25 MG TABLET PO SCH ×2 (08:01→21:17)
[2018-05-24] MEDS: POTASSIUM CHLORIDE 20 MEQ POWDER PACKET PO SCH (08:01)
[2018-05-24] MEDS: NEOMY/BACITRAC/POLYMI OINT 28.35 GM TUBE TOP SCH (08:03)
[2018-05-24] MEDS: HYDROCORTISONE 0.5% CREAM 28.35 GM TUBE TOP SCH ×2 (08:03→21:19)
[2018-05-24] MEDS: MUPIROCIN 2% OINT 22 GM TUBE NS SCH ×2 (08:04→21:20)
[2018-05-24] MEDS: AMLODIPINE 5 MG TABLET PO SCH (09:00)
[2018-05-24] MEDS: INSULIN REGULAR, HUMAN 300 UNIT/3 ML VIAL SQ PRN ×2 (11:50→16:44)
[2018-05-24] MEDS ORDERED: MAGNESIUM OXIDE 400 MG TABLET PO ONE (12:45)
--- NOTE | 2018-05-24 18:05 | NUR ---
@1800, CHANGE DRESSING AT RIGHT MED-LOWER BACK AREA FOR PREVIOUS CYSTS BIOPSY. UPON ASSESSMENT, WOUND PRESENTS TO BE HEALING WITHOUT ANY COMPLICATIONS. NO PRESENCE OF PUS OR INFLAMMATION NOTED. PATIENT DENIES ANY PAIN OR DISCOMFORT AT THE SITE. SITE WAS CLEANSED WITH NORMAL SALINE, APPLICATION OF TRIPLE ANTIBIOTIC OINTMENT AND COVERED WITH MEPILEX. WILL CONTINUE TO MONITOR AND PROVIDE WOUND CARE.
--- NOTE | 2018-05-24 18:16 | NUR ---
PATIENT HAS BEEN SEEN AND ASSESSED AT BEDSIDE WHILE RESTING IN BED. PATIENT IS PLANNED TO BE DISCHARGED TOMORROW 05/25/2018. PATIENT STILL STATES THAT "HE IS DEPRESSED AND SAD BUT DENIES SI. CERTIFIED SOCIAL WORKERS IN HEALTH CARE HAS SPOKEN TO THE PATIENT AND HAS INFORMED HIM OF PROPOSED DISCHARGE TO [facility]. PATIENT IS COMPLIANT WITH MOST OF THE MEDICAL REGIMENT AND TREATMENT. HAD 2 BOWEL MOVEMENTS: LARGE, SOFT, FORMED AND BROWN. BLOOD SUGAR CHECKED ORDER WITH INSULIN SCALE. PATIENT IS IN STABLE CONDITION AND SHOWS NO S/S OF RESPIRATORY DISTRESS. WILL CONTINUE TO MONITOR AND FOLLOW CARE PLAN.
[2018-05-24 19:07] VITALS: BP 142/63
--- NOTE | 2018-05-24 20:30 | NUR ---
Pt received sitting comfortably in bed, alert and oriented x3. 1:1 at bedside for safety. Discussed plan of care. Pt cooperative with care. Pt denies SI. No complaints of pain at this time.Isolation precautions implemented. Bed on low locked position, call light within reach. Will monitor and carry out all orders.
[2018-05-24] MEDS: DOCUSATE SODIUM 100 MG CAPSULE PO SCH (21:00)
[2018-05-24] MEDS: EZETIMIBE 10 MG TABLET PO SCH (21:16)
[2018-05-24] MEDS: TAMSULOSIN HCL 0.4 MG CAP.SR.24H PO SCH (21:16)
[2018-05-24] MEDS: ATORVASTATIN 20 MG TABLET PO SCH (21:17)
[2018-05-24] MEDS: INSULIN GLARGINE,HUM 300 UNITS/3 ML CARTRIDGE SQ SCH (21:25)
[2018-05-24] MEDS: TEMAZEPAM 7.5 MG CAPSULE PO PRN (22:12)
[2018-05-25] MEDS: diphenhydrAMINE 50 MG CAPSULE PO PRN (00:48)
[2018-05-25 05:42] LABS: CARBON DIOXIDE 26 mmol/L (21-32); CHLORIDE 105 mmol/L (98-107); CREATININE 1.5 mg/dL (0.6-1.3); GLUCOSE 112 mg/dL (74-106); MAGNESIUM 1.8 mg/dL (1.8-2.4); POTASSIUM 3.8 mmol/L (3.5-5.1); UREA NITROGEN, BLOOD 14 mg/dL (7-18)
[2018-05-25] MEDS: BLOOD SUGAR DIAGNOSTIC 1 EACH STRIP VI SCH ×2 (06:31→11:39)
--- NOTE | 2018-05-25 06:51 | NUR ---
Pt slept intermittently throughout the night. Pt slept total of 3 hours and 30 minutes of sleep. 1:1 at bedside for safety. Medications given as ordered. Cooperative with care. Pt shows no signs of acute distress. No complaints of pain during the night, denies SI. Snacks and skin care provided. Kept pt clean and dry. Isolation precautions and safety measures maintained at all times. Call light within reach. Will endorse continuity of care to day shift nurse.
[2018-05-25 07:12] VITALS: BP 152/67
--- NOTE | 2018-05-25 07:53 | NUR ---
PATIENT RECEIVED ON BED. ASLEEP. AAOX3. 1:1 SITTER AT BEDSIDE FOR SAFETY. APPEARS COMFORTABLE SAFETY PRECAUTIONS OBSERVED AT ALL TIMES. AM BLOOD GLUCOSE 96. NO COMPLAINS OF PAIN/DISCOMFORT. COMFORT MEASURES PROVIDED. CALL LIGHT WITHIN REACH. WILL CONTINUE TO MONITOR CLOSELY
[2018-05-25] MEDS: ACIDOPHILUS/BULGARICUS CHEW TAB PO SCH (08:27)
[2018-05-25] MEDS: risperiDONE 0.25 MG TABLET PO SCH ×2 (08:27→12:06)
[2018-05-25] MEDS: SULFAMETH/TRIMETH 800/160 MG TABLET PO SCH (08:27)
[2018-05-25] MEDS: BENZTROPINE MESYLATE 0.5 MG TABLET PO SCH (08:27)
[2018-05-25] MEDS: ASCORBIC ACID 500 MG TABLET PO SCH (08:27)
[2018-05-25] MEDS: DULOXETINE 30 MG CAPSULE.DR PO SCH ×2 (08:27→12:06)
[2018-05-25] MEDS: POTASSIUM CHLORIDE 20 MEQ POWDER PACKET PO SCH (08:27)
[2018-05-25] MEDS: AMLODIPINE 5 MG TABLET PO SCH (08:27)
[2018-05-25] MEDS: METOPROLOL TARTRATE 25 MG TABLET PO SCH (08:27)
[2018-05-25] MEDS: MULTIVITAMINS,THERAPEUTIC TABLET PO SCH (08:28)
[2018-05-25] MEDS: NEOMY/BACITRAC/POLYMI OINT 28.35 GM TUBE TOP SCH (08:30)
[2018-05-25] MEDS: HYDROCORTISONE 0.5% CREAM 28.35 GM TUBE TOP SCH (08:30)
[2018-05-25] MEDS: MUPIROCIN 2% OINT 22 GM TUBE NS SCH (08:32)
--- NOTE | 2018-05-25 08:38 | NUR ---
Discharge Note: Patient will be discharged back to [facility] [[address] [place] [address]] and will receive transportation from the sas administrator of [facility], Devora [ ], at 11:00am. precision optical goods worker has spoken with Devora and she is aware and agreeable with plan. precision optical goods worker called patients son, Fermin [[phone]], twice but his phone is off so social worker masters left two voicemails explaining patient discharge. Patient is alert and oriented x2-3 and denies SI/HI. Patient is aware and agreeable with discharge plans. precision optical goods worker has provided patient with mental health resources including [facility] Crisis Line , Letitia Yang , and the National Suicide Prevention Lifeline . precision optical goods worker also provided patient with New Lifestyles booklet.
[2018-05-25 10:05] VITALS: BP 147/59
[2018-05-25] MEDS: FUROSEMIDE 20 MG TABLET PO SCH (11:38)
[2018-05-25] MEDS: INSULIN REGULAR, HUMAN 300 UNIT/3 ML VIAL SQ PRN (11:42)
--- NOTE | 2018-05-25 12:25 | NUR ---
PATIENT'S CANE MISSING. PATIENT STATES " I DON'T KNOW WHERE IT IS" CANE LISTED ON BELONGING LIST UPON ADMISSION. INCIDENT REPORT COMPLETED.
--- NOTE | 2018-05-25 12:29 | NUR ---
PATIENT DISCHARGED TO [facility] IN STABLE CONDITION. DISCHARGE PAPERS AND INSTRUCTIONS GIVEN TO PATIENT TOGETHER WITH PRESCRIPTION. PATIENT PICKED UP BY CASIE ([facility]).
[2018-05-27] MEDS ORDERED: PERMETHRIN 5% CREAM 60 GM TUBE TP ONE (09:00)
== END 2018-05-25 12:30 | DRG 885 ==
LOC: ER 01:47 → GPSOV 05:34 → MED 08:10 → GPSOV 08:37 → GPS 17:00 → GPSOV 05-20 14:38
PROVIDERS: ADMIT Psychiatry & Neurology Psychiatry; ATTEND Internal Medicine
PROC: 0HB6XZX Excision of Back Skin, External Approach, Diagnostic (ICD-10-PCS; principal; 2018-05-20)
DX: F33.3 Major depressive disorder, recurrent, severe with psychotic symptoms (principal); N17.0 Acute kidney failure with tubular necrosis; E11.65 Type 2 diabetes mellitus with hyperglycemia; I13.0 Hypertensive heart and chronic kidney disease with heart failure and stage 1 through stage 4 chronic kidney disease, or unspecified chronic kidney disease; I50.32 Chronic diastolic (congestive) heart failure; N39.0 Urinary tract infection, site not specified; N02.9 Recurrent and persistent hematuria with unspecified morphologic changes; D68.59 Other primary thrombophilia; E66.9 Obesity, unspecified; Z68.32 Body mass index [BMI] 32.0-32.9, adult; Z71.3 Dietary counseling and surveillance; F03.90 Unspecified dementia, unspecified severity, without behavioral disturbance, psychotic disturbance, mood disturbance, and anxiety; E78.5 Hyperlipidemia, unspecified; G89.4 Chronic pain syndrome; Z86.718 Personal history of other venous thrombosis and embolism; E11.22 Type 2 diabetes mellitus with diabetic chronic kidney disease; N18.2 Chronic kidney disease, stage 2 (mild); Z79.4 Long term (current) use of insulin; K40.20 Bilateral inguinal hernia, without obstruction or gangrene, not specified as recurrent; M89.9 Disorder of bone, unspecified; Z79.01 Long term (current) use of anticoagulants; Z74.09 Other reduced mobility; Z22.322 Carrier or suspected carrier of Methicillin resistant Staphylococcus aureus; E87.6 Hypokalemia; E83.42 Hypomagnesemia; N40.0 Benign prostatic hyperplasia without lower urinary tract symptoms; Z87.440 Personal history of urinary (tract) infections; B86 Scabies; I48.0 Paroxysmal atrial fibrillation; M19.90 Unspecified osteoarthritis, unspecified site; Z91.81 History of falling; C44.519 Basal cell carcinoma of skin of other part of trunk; L98.9 Disorder of the skin and subcutaneous tissue, unspecified
CPT/HCPCS: 36415; 70030-TC; 71045; 76770; 80307; 83735; 84100; 85025; 85730; 87086; 93005; 97116; 97530; A4663; G0480; G0480-TC; J0515; J1815; Q0163

== ENCOUNTER 2018-06-04 20:32 | Inpatient (IN) | payer MEDICARE, BC ==
[~2018-06-04] VITALS: Ht 175.3 cm; Wt 101.2 kg
[~2018-06-04 20:32] MED LIST changes: -FAMO-132 PO; -HYDR25TA86 PO; -Insulin Glargine,Hum SQ; -TRAZ-182 PO
[2018-06-04 20:59] LABS: BASOPHILS % (AUTO) 0.4 % (0.0-2.0); EOSINOPHILS % (AUTO) 0.3 % (0.0-7.0); HEMATOCRIT 40.1 % (36.7-47.1); HEMOGLOBIN 13.9 g/dL (12.5-16.3); LYMPHOCYTES # (AUTO) 2.5 K/uL (20.0-40.0); LYMPHOCYTES % (AUTO) 20.6 % (20.5-51.5); MEAN CORPUSCULAR HEMOGLOBIN 31.3 uug (23.8-33.4); MEAN CORPUSCULAR HGB CONC 35 g/dL (32.5-36.3); MONOCYTES # (AUTO) 0.9 K/uL (2.0-10.0); MONOCYTES % (AUTO) 7.6 % (0.0-11.0); NEUTROPHILS # (AUTO) 8.5 K/uL (1.8-8.9); NEUTROPHILS % (AUTO) 71.1 % (38.5-71.5); PLATELET COUNT (AUTO) 358 K/uL (152-348); RED BLOOD CELL COUNT(AUTO) 4.46 MIL/uL (4.06-5.63)
[2018-06-04] MEDS ORDERED: IV NORMAL SALINE 1000 ML BAG IV ONE ×2 (21:00→21:45)
[2018-06-04 21:16] LABS: ALANINE AMINOTRANSFERASE 26 U/L (16-63); ALKALINE PHOSPHATASE 98 U/L (50-136); ASPARTATE AMINOTRANSFERASE 9 U/L (15-37); BILIRUBIN,DIRECT 0.1 mg/dL (0.0-0.2); BILIRUBIN,TOTAL 0.6 mg/dL (0.2-1.0); CARBON DIOXIDE 29 mmol/L (21-32); CHLORIDE 97 mmol/L (98-107); CHOLESTEROL 210 mg/dL (<200); GLUCOSE 283 mg/dL (74-106); HDL CHOLESTEROL 44 mg/dL (40-60); TOTAL PROTEIN, SERUM 8.4 g/dL (6.4-8.2); TRIGLYCERIDES 172 MG/DL (30-150); UREA NITROGEN, BLOOD 22 mg/dL (7-18)
[2018-06-04] MEDS ORDERED: LEVOFLOXACIN 750 MG/D5W 150 ML PIGGYBACK IV ONE (21:45)
[2018-06-04] MEDS ORDERED: LEVOFLOXACIN 750MG/D5W 150 ML IV ONE (22:05)
[2018-06-04] MEDS ORDERED: RISP0.253 PO (22:29)
[2018-06-04] MEDS ORDERED: ASPIRIN 325 MG TABLET PO ONE (23:00)
[2018-06-04] MEDS ORDERED: ASPIRIN EC 325 MG TABLET.DR PO ONE (23:02)
[2018-06-04] MEDS ORDERED: ASPIRIN 325 MG TABLET ONE (23:03)
[2018-06-04 23:12] LABS: *BILIRUBIN,URIN NEGATIVE (NEGATIVE); *BLOOD, URINE NEGATIVE (NEGATIVE); *COLOR,URINE YELLOW (YELLOW); *KETONES,URINE TRACE (NEGATIVE); *PROTEIN,URINE 2+ (NEGATIVE); *UROBILINOGEN,URINE 0.2 E.U./dl (NORMAL); LEUKOCYTE ESTERASE ,URINE NEGATIVE (NEGATIVE); NITRITE, URINE NEGATIVE (NEGATIVE); PH,URINE 5.5 (5.0-8.0); UGLUCOSE TRACE (NEGATIVE)
[2018-06-04 23:17] LABS: *CLARITY,URINE HAZY (CLEAR)
[2018-06-04 23:31] LABS: BACTERIA,URINE NONE SEEN /HPF (NONE SEEN); SQUAMOUS EPITHELIAL CELL,UR FEW /HPF (NONE SEEN)
[2018-06-04] MEDS ORDERED: POTASSIUM CHLORIDE 20 MEQ POWDER PACKET ONE (23:49)
[2018-06-05] VITALS (7 sets, daily range): BP systolic 114–143; BP diastolic 58–97
[2018-06-05] MEDS ORDERED: POTASSIUM CHLORIDE 20 MEQ POWDER PACKET PO ONE
[2018-06-05] MEDS ORDERED: ACETAMINOPHEN 325 MG TABLET PO PRN (01:00)
[2018-06-05] MEDS ORDERED: Z GUARD REMEDY PASTE 57 GM TUBE TOP PRN (01:00)
[2018-06-05] MEDS ORDERED: HYDROCORTISONE 0.5% TOP SCH ×2 (01:00→08:00)
[2018-06-05] MEDS ORDERED: HYDROCODONE/APAP 5-325MG TABLET PO PRN (01:00)
[2018-06-05] MEDS ORDERED: FUROSEMIDE 20 MG TABLET PO SCH (01:00)
[2018-06-05] MEDS ORDERED: ONDANSETRON 4 MG/2 ML VIAL IV PRN (01:00)
[2018-06-05] MEDS ORDERED: MAGNESIUM HYDROXIDE 30 ML LIQUID UDC PO PRN (01:00)
[2018-06-05] MEDS ORDERED: CLONIDINE HCL 0.1 MG TABLET ONE (01:10)
[2018-06-05] MEDS ORDERED: CLONIDINE HCL 0.1 MG TABLET PO ONE (01:15)
[2018-06-05 05:01] LABS: BASOPHILS # (AUTO) 0.1 K/uL (0.0-8.0); BASOPHILS % (AUTO) 0.6 % (0.0-2.0); EOSINOPHILS # (AUTO) 0.1 K/uL (0.0-0.7); EOSINOPHILS % (AUTO) 0.5 % (0.0-7.0); HEMOGLOBIN 11.5 g/dL (12.5-16.3); LYMPHOCYTES # (AUTO) 2.8 K/uL (20.0-40.0); LYMPHOCYTES % (AUTO) 25.2 % (20.5-51.5); MEAN CORPUSCULAR HGB CONC 35 g/dL (32.5-36.3); MEAN CORPUSCULAR VOLUME 88.9 fL (73.0-96.2); MONOCYTES # (AUTO) 0.9 K/uL (2.0-10.0); MONOCYTES % (AUTO) 8.3 % (0.0-11.0); NEUTROPHILS # (AUTO) 7.2 K/uL (1.8-8.9); NEUTROPHILS % (AUTO) 65.4 % (38.5-71.5); PLATELET COUNT (AUTO) 296 K/uL (152-348); RED BLOOD CELL COUNT(AUTO) 3.72 MIL/uL (4.06-5.63); WHITE BLOOD COUNT (AUTO) 11.1 K/uL (3.6-10.2)
[2018-06-05 05:17] LABS: THYROID STIMULATING HORMONE 1.283 mIU/mL (0.358-3.740)
[2018-06-05 05:22] LABS: ALANINE AMINOTRANSFERASE 22 U/L (16-63); ALKALINE PHOSPHATASE 78 U/L (50-136); ASPARTATE AMINOTRANSFERASE 12 U/L (15-37); BILIRUBIN,TOTAL 0.6 mg/dL (0.2-1.0); CARBON DIOXIDE 27 mmol/L (21-32); CHLORIDE 103 mmol/L (98-107); CHOLESTEROL 167 mg/dL (<200); CREATININE 1.5 mg/dL (0.6-1.3); GLUCOSE 186 mg/dL (74-106); HDL CHOLESTEROL 37 mg/dL (40-60); TOTAL PROTEIN, SERUM 6.7 g/dL (6.4-8.2); TRIGLYCERIDES 121 MG/DL (30-150); UREA NITROGEN, BLOOD 17 mg/dL (7-18)
[2018-06-05 05:30] LABS: POTASSIUM 2.8 mmol/L (3.5-5.1)
[2018-06-05] MEDS ORDERED: BLOOD SUGAR DIAGNOSTIC 1 EACH STRIP VI SCH ×2 (06:00→07:30)
[2018-06-05] MEDS ORDERED: POTASSIUM CHLORIDE 20 MEQ TAB.PRT.SR PO ONE (06:15)
[2018-06-05] MEDS: POTASSIUM CHLORIDE 50 ML IV SCH ×4 (06:19→10:10)
[2018-06-05] MEDS: ASPIRIN EC 81 MG TABLET.DR PO SCH (08:21)
[2018-06-05] MEDS: ASCORBIC ACID 500 MG TABLET PO SCH (08:21)
[2018-06-05] MEDS: MULTIVITAMINS,THERAPEUTIC TABLET PO SCH (08:21)
[2018-06-05] MEDS: DULOXETINE 30 MG CAPSULE.DR PO SCH ×2 (08:21→13:21)
[2018-06-05] MEDS: risperiDONE 0.25 MG TABLET PO SCH ×3 (08:21→16:53)
[2018-06-05] MEDS: ACIDOPHILUS/BULGARICUS CHEW TAB PO SCH ×2 (08:21→16:53)
[2018-06-05] MEDS: METOPROLOL TARTRATE 25 MG TABLET PO SCH ×2 (08:23→20:40)
[2018-06-05] MEDS: BENZTROPINE MESYLATE 0.5 MG TABLET PO SCH (08:38)
[2018-06-05] MEDS ORDERED: AMLODIPINE 5 MG TABLET PO SCH (09:00)
[2018-06-05] MEDS ORDERED: DEXTROSE 50% 50 ML DISP.SYRIN IV PRN (10:30)
[2018-06-05] MEDS: BLOOD SUGAR DIAGNOSTIC 1 EACH STRIP VI SCH ×3 (11:30→21:31)
[2018-06-05] MEDS: INSULIN REGULAR, HUMAN 300 UNIT/3 ML VIAL SQ PRN ×3 (11:35→21:39)
[2018-06-05 14:12] LABS: *BILIRUBIN,URIN NEGATIVE (NEGATIVE); *BLOOD, URINE NEGATIVE (NEGATIVE); *CLARITY,URINE CLEAR (CLEAR); *COLOR,URINE YELLOW (YELLOW); *KETONES,URINE NEGATIVE (NEGATIVE); *PROTEIN,URINE NEGATIVE (NEGATIVE); *UROBILINOGEN,URINE 0.2 E.U./dl (NORMAL); LEUKOCYTE ESTERASE ,URINE TRACE (NEGATIVE); NITRITE, URINE NEGATIVE (NEGATIVE); PH,URINE 5.5 (5.0-8.0); UGLUCOSE TRACE (NEGATIVE)
[2018-06-05 14:26] LABS: BACTERIA,URINE FEW /HPF (NONE SEEN)
[2018-06-05 14:30] LABS: SQUAMOUS EPITHELIAL CELL,UR FEW /HPF (NONE SEEN)
[2018-06-05 14:31] LABS: RENAL EPITHELIAL CELLS,URINE FEW /LPF (NONE SEEN)
[2018-06-05] MEDS: DOCUSATE SODIUM 100 MG CAPSULE PO SCH (20:28)
[2018-06-05] MEDS: TAMSULOSIN HCL 0.4 MG CAP.SR.24H PO SCH (20:41)
[2018-06-05] MEDS ORDERED: ATORVASTATIN 20 MG TABLET PO SCH (21:00)
[2018-06-06] VITALS (7 sets, daily range): BP systolic 117–136; BP diastolic 48–82
[2018-06-06 05:11] LABS: BASOPHILS # (AUTO) 0.1 K/uL (0.0-8.0); BASOPHILS % (AUTO) 0.6 % (0.0-2.0); CARBON DIOXIDE 29 mmol/L (21-32); CHLORIDE 105 mmol/L (98-107); CREATININE 1.5 mg/dL (0.6-1.3); EOSINOPHILS # (AUTO) 0.2 K/uL (0.0-0.7); EOSINOPHILS % (AUTO) 2.9 % (0.0-7.0); GLUCOSE 140 mg/dL (74-106); HEMATOCRIT 32.3 % (36.7-47.1); HEMOGLOBIN 11.4 g/dL (12.5-16.3); LYMPHOCYTES # (AUTO) 3.5 K/uL (20.0-40.0); LYMPHOCYTES % (AUTO) 40.9 % (20.5-51.5); MAGNESIUM 1.4 mg/dL (1.8-2.4); MEAN CORPUSCULAR HEMOGLOBIN 31.3 uug (23.8-33.4); MEAN CORPUSCULAR HGB CONC 35 g/dL (32.5-36.3); MEAN CORPUSCULAR VOLUME 89.3 fL (73.0-96.2); MONOCYTES # (AUTO) 0.6 K/uL (2.0-10.0); MONOCYTES % (AUTO) 7.4 % (0.0-11.0); NEUTROPHILS # (AUTO) 4.2 K/uL (1.8-8.9); NEUTROPHILS % (AUTO) 48.2 % (38.5-71.5); PHOSPHOROUS 4.2 mg/dL (2.5-4.9); PLATELET COUNT (AUTO) 248 K/uL (152-348); RED BLOOD CELL COUNT(AUTO) 3.62 MIL/uL (4.06-5.63); UREA NITROGEN, BLOOD 18 mg/dL (7-18); WHITE BLOOD COUNT (AUTO) 8.6 K/uL (3.6-10.2)
[2018-06-06 05:15] LABS: POTASSIUM 2.8 mmol/L (3.5-5.1)
[2018-06-06] MEDS ORDERED: MAGNESIUM OXIDE 400 MG TABLET PO ONE (06:45)
[2018-06-06] MEDS ORDERED: POTASSIUM CHLORIDE 20 MEQ TAB.PRT.SR PO ONE ×3 (06:45→12:00)
[2018-06-06] MEDS: BLOOD SUGAR DIAGNOSTIC 1 EACH STRIP VI SCH ×4 (06:55→21:37)
[2018-06-06] MEDS: INSULIN REGULAR, HUMAN 300 UNIT/3 ML VIAL SQ PRN ×3 (07:01→21:53)
[2018-06-06] MEDS: BENZTROPINE MESYLATE 0.5 MG TABLET PO SCH (08:55)
[2018-06-06] MEDS: ACIDOPHILUS/BULGARICUS CHEW TAB PO SCH ×2 (08:55→16:58)
[2018-06-06] MEDS: DULOXETINE 30 MG CAPSULE.DR PO SCH ×2 (08:56→12:58)
[2018-06-06] MEDS: ASPIRIN EC 81 MG TABLET.DR PO SCH (08:57)
[2018-06-06] MEDS: MULTIVITAMINS,THERAPEUTIC TABLET PO SCH (08:57)
[2018-06-06] MEDS: METOPROLOL TARTRATE 25 MG TABLET PO SCH ×2 (08:57→21:29)
[2018-06-06] MEDS: risperiDONE 0.25 MG TABLET PO SCH ×3 (08:57→16:58)
[2018-06-06] MEDS: ASCORBIC ACID 500 MG TABLET PO SCH (08:58)
[2018-06-06] MEDS ORDERED: IV NORMAL SALINE 1000 ML BAG IV ONE (15:15)
[2018-06-06] MEDS ORDERED: IV NS 1000 ML 1,000 ML IV ONE (15:15)
[2018-06-06] MEDS: IV NS 1000 ML 1,000 ML IV PRN (18:42)
[2018-06-06] MEDS ORDERED: ATORVASTATIN 40 MG TABLET PO SCH (21:00)
[2018-06-06] MEDS: TAMSULOSIN HCL 0.4 MG CAP.SR.24H PO SCH (21:28)
[2018-06-06] MEDS: DOCUSATE SODIUM 100 MG CAPSULE PO SCH (21:28)
[2018-06-06] MEDS ORDERED: QUETIAPINE FUMARATE 25 MG TABLET PO ONE (22:30)
[2018-06-07 03:29] VITALS: BP 112/64
[2018-06-07] MEDS: IV NS 1000 ML 1,000 ML IV PRN (05:25)
[2018-06-07] MEDS: BLOOD SUGAR DIAGNOSTIC 1 EACH STRIP VI SCH ×3 (06:38→16:47)
[2018-06-07 08:33] VITALS: BP 157/86
[2018-06-07] MEDS: METOPROLOL TARTRATE 25 MG TABLET PO SCH (09:00)
[2018-06-07] MEDS: MULTIVITAMINS,THERAPEUTIC TABLET PO SCH (09:16)
[2018-06-07] MEDS: ACIDOPHILUS/BULGARICUS CHEW TAB PO SCH ×2 (09:16→16:47)
[2018-06-07] MEDS: BENZTROPINE MESYLATE 0.5 MG TABLET PO SCH (09:16)
[2018-06-07] MEDS: DULOXETINE 30 MG CAPSULE.DR PO SCH ×2 (09:16→12:45)
[2018-06-07] MEDS: ASPIRIN EC 81 MG TABLET.DR PO SCH (09:16)
[2018-06-07] MEDS: ASCORBIC ACID 500 MG TABLET PO SCH (09:16)
[2018-06-07] MEDS: risperiDONE 0.25 MG TABLET PO SCH ×3 (09:16→16:47)
[2018-06-07 11:32] LABS: CARBON DIOXIDE 29 mmol/L (21-32); CHLORIDE 108 mmol/L (98-107); CREATININE 1.4 mg/dL (0.6-1.3); GLUCOSE 171 mg/dL (74-106); POTASSIUM 3.8 mmol/L (3.5-5.1); UREA NITROGEN, BLOOD 19 mg/dL (7-18)
[2018-06-07 11:48] VITALS: BP 105/75
[2018-06-07] MEDS: INSULIN REGULAR, HUMAN 300 UNIT/3 ML VIAL SQ PRN ×2 (12:40→16:51)
[2018-06-07 15:47] VITALS: BP 132/66
== END 2018-06-07 19:15 | DRG 64 ==
LOC: ER 20:34 → CCU 06-05 02:17 → TELE 06-06 19:25
PROVIDERS: ADMIT Internal Medicine
DX: I63.81 Other cerebral infarction due to occlusion or stenosis of small artery (principal); N17.0 Acute kidney failure with tubular necrosis; G81.91 Hemiplegia, unspecified affecting right dominant side; D68.59 Other primary thrombophilia; N39.0 Urinary tract infection, site not specified; E87.2 Acidosis; G93.40 Encephalopathy, unspecified; I13.0 Hypertensive heart and chronic kidney disease with heart failure and stage 1 through stage 4 chronic kidney disease, or unspecified chronic kidney disease; I50.32 Chronic diastolic (congestive) heart failure; R29.702 NIHSS score 2; M94.0 Chondrocostal junction syndrome [Tietze]; E11.22 Type 2 diabetes mellitus with diabetic chronic kidney disease; E11.65 Type 2 diabetes mellitus with hyperglycemia; N18.9 Chronic kidney disease, unspecified; Z79.4 Long term (current) use of insulin; B86 Scabies; Z86.73 Personal history of transient ischemic attack (TIA), and cerebral infarction without residual deficits; L21.9 Seborrheic dermatitis, unspecified; F03.90 Unspecified dementia, unspecified severity, without behavioral disturbance, psychotic disturbance, mood disturbance, and anxiety; C44.519 Basal cell carcinoma of skin of other part of trunk; Z86.718 Personal history of other venous thrombosis and embolism; N40.1 Benign prostatic hyperplasia with lower urinary tract symptoms; R33.8 Other retention of urine; Z79.01 Long term (current) use of anticoagulants; Z87.440 Personal history of urinary (tract) infections; K40.20 Bilateral inguinal hernia, without obstruction or gangrene, not specified as recurrent; Z91.81 History of falling; I48.91 Unspecified atrial fibrillation; E83.42 Hypomagnesemia; E78.5 Hyperlipidemia, unspecified; E87.6 Hypokalemia; F32.9 Major depressive disorder, single episode, unspecified; G89.29 Other chronic pain; E66.9 Obesity, unspecified; Z68.32 Body mass index [BMI] 32.0-32.9, adult; K76.0 Fatty (change of) liver, not elsewhere classified; K82.4 Cholesterolosis of gallbladder; D64.9 Anemia, unspecified; I67.2 Cerebral atherosclerosis; R47.02 Dysphasia; M47.812 Spondylosis without myelopathy or radiculopathy, cervical region; M19.90 Unspecified osteoarthritis, unspecified site
CPT/HCPCS: 36415; 70030-TC; 70450; 71045; 72125; 83605; 83735; 84100; 84443; 85025; 85651; 85730; 86592; 87040; 87086; 87400; 92610; 93005; 93307; 93880; 97110; 97112; 97116; 97165; 97530; 97535; A4663; C1758; G0378; J1815; J1956; J3480; J7030

== ENCOUNTER 2018-06-07 16:35 | Inpatient (IN) | payer MEDICARE, BC ==
[~2018-06-07] VITALS: Ht 177.8 cm; Wt 97.1 kg
[~2018-06-07 16:35] MED LIST changes: -ATOR20TA PO; -EZET10TA13 PO; -HYDR-3326 PO; -HYDR28.33 TOP; -RIVA10TA PO
[2018-06-07] MEDS ORDERED: Z GUARD REMEDY PASTE 57 GM TUBE TOP PRN (20:00)
--- NOTE | 2018-06-07 20:45 | NUR ---
Informed Dr. Alex regarding med recon. verbalized he will do it. Will continue to monitor.
[2018-06-07 20:59] VITALS: BP 150/69
[2018-06-07] MEDS ORDERED: INSULIN REGULAR, HUMAN 300 UNIT/3 ML VIAL SQ PRN (21:30)
[2018-06-07] MEDS ORDERED: DEXTROSE 50% 50 ML DISP.SYRIN IV PRN ×2 (21:30)
[2018-06-07] MEDS ORDERED: FUROSEMIDE 20 MG TABLET PO SCH (21:30)
[2018-06-07] MEDS: BLOOD SUGAR DIAGNOSTIC 1 EACH STRIP VI SCH (21:56)
[2018-06-07] MEDS: INSULIN REGULAR, HUMAN 300 UNIT/3 ML VIAL SQ PRN (21:59)
[2018-06-07] MEDS ORDERED: CEPHALEXIN MONOHYDRATE 250 MG CAPSULE ONE (22:53)
[2018-06-07] MEDS: CEPHALEXIN MONOHYDRATE 250 MG CAPSULE PO SCH (23:22)
--- NOTE | 2018-06-07 23:46 | NUR ---
Admitting 72 year old male from 2nd floor med surg with diagnosis of Acute CVA. No acute distress noted. In unit at 1900, arrived via gurney. Verbally responsive and able to make needs known. Alert and oriented x 1 to self, with confusion. Denies SOB, breathing even and nonlabored. Continuing O2 at 2LPM via NC, tolerating well. VSS. Routine admission care done. Oriented to unit. Dr. Alex made aware of pt admission, med recon completed. Dr. Hua aware of pt arrival. Noted with Murry Cath, draining well into bag with clear, yellow urine. Skin intact. NIHSS of 4. All night due medications given per MD order and tolerated well. All safety measures and fall precautions maintained. Call light and all personal belongings within reach. Will continue to monitor.
[2018-06-08] MEDS ORDERED: CEPHALEXIN MONOHYDRATE 250 MG CAPSULE ONE (01:49)
[2018-06-08] MEDS: CEPHALEXIN MONOHYDRATE 250 MG CAPSULE PO SCH ×3 (06:29→21:36)
[2018-06-08] MEDS: BLOOD SUGAR DIAGNOSTIC 1 EACH STRIP VI SCH ×4 (06:30→20:46)
[2018-06-08 06:44] VITALS: BP 153/89
[2018-06-08] MEDS: DULOXETINE 30 MG CAPSULE.DR PO SCH ×2 (08:11→12:22)
[2018-06-08] MEDS: MULTIVITAMINS,THERAPEUTIC TABLET PO SCH (08:11)
[2018-06-08] MEDS: risperiDONE 0.25 MG TABLET PO SCH ×3 (08:11→17:42)
[2018-06-08] MEDS: ASCORBIC ACID 500 MG TABLET PO SCH (08:11)
[2018-06-08] MEDS: ACIDOPHILUS/BULGARICUS CHEW TAB PO SCH ×2 (08:11→17:42)
[2018-06-08] MEDS: BENZTROPINE MESYLATE 0.5 MG TABLET PO SCH (08:11)
[2018-06-08] MEDS: ASPIRIN EC 81 MG TABLET.DR PO SCH (08:11)
[2018-06-08] MEDS: METOPROLOL TARTRATE 25 MG TABLET PO SCH ×2 (08:12→20:45)
--- NOTE | 2018-06-08 08:14 | NUR ---
Patient noted resting in bed with with eyes closed, 2 Liters of oxygen on via nasal cannula, no complaints of pain, no signs of distress noted, call light in reach bed locked and in lowest position
[2018-06-08] MEDS: INSULIN REGULAR, HUMAN 300 UNIT/3 ML VIAL SQ PRN ×4 (08:15→20:48)
[2018-06-08 08:44] VITALS: BP 163/87
[2018-06-08] MEDS ORDERED: AMLODIPINE 5 MG TABLET PO SCH (09:00)
[2018-06-08 16:26] LABS: BASOPHILS # (AUTO) 0.1 K/uL (0.0-8.0); BASOPHILS % (AUTO) 0.8 % (0.0-2.0); EOSINOPHILS # (AUTO) 0.3 K/uL (0.0-0.7); EOSINOPHILS % (AUTO) 2.5 % (0.0-7.0); HEMATOCRIT 34.6 % (36.7-47.1); HEMOGLOBIN 11.9 g/dL (12.5-16.3); LYMPHOCYTES # (AUTO) 1.9 K/uL (20.0-40.0); LYMPHOCYTES % (AUTO) 18.4 % (20.5-51.5); MEAN CORPUSCULAR HEMOGLOBIN 31.3 uug (23.8-33.4); MEAN CORPUSCULAR HGB CONC 34 g/dL (32.5-36.3); MONOCYTES # (AUTO) 0.8 K/uL (2.0-10.0); MONOCYTES % (AUTO) 7.7 % (0.0-11.0); NEUTROPHILS # (AUTO) 7.2 K/uL (1.8-8.9); NEUTROPHILS % (AUTO) 70.6 % (38.5-71.5); PLATELET COUNT (AUTO) 256 K/uL (152-348); WHITE BLOOD COUNT (AUTO) 10.2 K/uL (3.6-10.2)
[2018-06-08 16:34] LABS: CARBON DIOXIDE 32 mmol/L (21-32); CHLORIDE 104 mmol/L (98-107); CREATININE 1.4 mg/dL (0.6-1.3); GLUCOSE 165 mg/dL (74-106); POTASSIUM 3.6 mmol/L (3.5-5.1); UREA NITROGEN, BLOOD 21 mg/dL (7-18)
[2018-06-08 16:37] LABS: MAGNESIUM 1.6 mg/dL (1.8-2.4); PHOSPHOROUS 2.8 mg/dL (2.5-4.9)
[2018-06-08 16:41] VITALS: BP 150/77
[2018-06-08] MEDS ORDERED: MAGNESIUM OXIDE 400 MG TABLET PO ONE (16:50)
--- NOTE | 2018-06-08 18:55 | NUR ---
magnesium level noted at 1.6, SAVANNA Polanco notified with orders for magnesium oxide 400 PO O, Patients elevated blood pressure reported, SAVANNA Polanco states she will place order for PRN blood pressure medication, Patient placed on Room air and saturating 96%, blood in mcfarlane bag report to SAVANNA Polanco with no new orders.
[2018-06-08 20:00] VITALS: BP 156/76
[2018-06-08] MEDS: TAMSULOSIN HCL 0.4 MG CAP.SR.24H PO SCH (20:45)
[2018-06-08] MEDS: ATORVASTATIN 40 MG TABLET PO SCH (20:45)
[2018-06-08] MEDS: DOCUSATE SODIUM 100 MG CAPSULE PO SCH (20:48)
--- NOTE | 2018-06-08 21:40 | NUR ---
Received patient lying on bed. Awake. Verbally responsive able to make needs known .No signs and symptoms of respiratory distress noted . Murry catheter intact draining properly .Monitor urine output no hematuria noted. Afebrile. Due meds and insulin coverage given as ordered. At 2044, routine BP med Lopressor 25 mg given for BP 156/76. At 2144, BP continued to be elevated BP 169/93, hydralazine 10mg PRN given. After one hour, BP decreased to 150/67. Continue to monitor. Refused colace .Offered 3 x. Explained risks and benefits, still refused. Continue to monitor and observe. Call light and other belongings within reach at all times .Turn and reposition as schedule .Keep clean ,dry and comfortable.
[2018-06-08 21:45] VITALS: BP 169/93
[2018-06-08] MEDS: hydrALAZINE HCL 10 MG TABLET PO PRN (21:45)
[2018-06-08 23:05] VITALS: BP 150/67
[2018-06-09] VITALS (7 sets, daily range): BP systolic 135–166; BP diastolic 66–91
[2018-06-09] MEDS: hydrALAZINE HCL 10 MG TABLET PO PRN ×2 (05:47→14:50)
[2018-06-09] MEDS: CEPHALEXIN MONOHYDRATE 250 MG CAPSULE PO SCH ×3 (05:47→21:10)
[2018-06-09] MEDS: BLOOD SUGAR DIAGNOSTIC 1 EACH STRIP VI SCH ×4 (06:44→21:10)
[2018-06-09] MEDS: INSULIN REGULAR, HUMAN 300 UNIT/3 ML VIAL SQ PRN ×4 (08:02→21:10)
[2018-06-09] MEDS: DULOXETINE 30 MG CAPSULE.DR PO SCH ×2 (08:07→12:03)
[2018-06-09] MEDS: ACIDOPHILUS/BULGARICUS CHEW TAB PO SCH ×2 (08:07→17:03)
[2018-06-09] MEDS: ASCORBIC ACID 500 MG TABLET PO SCH (08:07)
[2018-06-09] MEDS: ASPIRIN EC 81 MG TABLET.DR PO SCH (08:07)
[2018-06-09] MEDS: METOPROLOL TARTRATE 25 MG TABLET PO SCH ×2 (08:08→20:08)
[2018-06-09] MEDS: MULTIVITAMINS,THERAPEUTIC TABLET PO SCH (08:08)
[2018-06-09] MEDS: AMLODIPINE 10 MG TABLET PO SCH (08:08)
[2018-06-09] MEDS: BENZTROPINE MESYLATE 0.5 MG TABLET PO SCH (08:09)
[2018-06-09] MEDS: risperiDONE 0.25 MG TABLET PO SCH ×3 (08:09→17:03)
[2018-06-09] MEDS ORDERED: AMLODIPINE 5 MG TABLET PO SCH (09:00)
--- NOTE | 2018-06-09 09:40 | NUR ---
Received pt. in bed with eyes open and comfortable. Denies CP or SOB. No c/o of pain or discomfort. Pt. A/OX2-3 with episodes of forgetfulness. All due AM medications given as ordered and tolerated well. No s/sx of bleeding, currently on ASA. Pt. compliant with regimen at this time. All pt. needs attended promptly. No s/sx of hypo/hyperglycemia. Safety measures in place, bed in lowest position, 2x upper SR up as enabler, encouraged pt. to use call light system for help. Call light and all frequently used items in place. Will continue to monitor accordingly.
--- NOTE | 2018-06-09 18:15 | NUR ---
At 1505, resident was found by rehab staff and RUNNER OUT during rounds lying on his right side in the pt. bathroom floor. Rehab staff promptly notified RN. Initial assessment revealed that pt. sustained RT. elbow open ecchymosis, first aid was promptly given. No other apparent injury sustained after full body skin assessment. Neuro check done, no head injury, no changes in LOC noted remain fully conscious. A/OX2-3 able to follow verbal commands. ROM was within normal limits, bilateral hand stock analyst equal and strong, able to move all four extremities with no pain. Speech clear with no changes from baseline. Pupil reaction brisk. Pt. denies pain or discomforts (0/10 P.S). Prior to the fall, the pt was noted sitting on his w/c in his room around 1450 during med pass, no abnormal behavior noted. Pt. was clean and dry when found wearing non-skid socks. Floor was dry, uncluttered with adequate lighting. F/C draining well with clear yellow urine output. Resident safely returned to bed with 3 person assist. Bed set a low position with bed alarm active, 2x SR up as enabler for bed positioning and mobility, call light within pt. reach. When pt. was interviewed, pt. unable to state reason of fall, stated "I'm fine." Provided pt. teaching to resident with emphasis on using call light system for assistance. Yellow fall identifier applied to pt. armband. VS signs taken as follows: T: 97.5, P: 78, R: 19, B/P: 162/87. BS: 216. Attending MD and JEWELRY REPAIRER promptly notified of the situation around 1535, relayed pertinent information to provider. Received order from Dr. Hua for stat RT elbow x-ray, order noted and carried out. metalsmith apprentice traffic sign supervisor made aware of situation. Called responsible green party ([facility]) x3 but unable to touchbase at the time, left voicemail to call facility back for pt. condition update. Repeated neuro check x3 q15 min with no changes from baseline. 1630 Neuro check x 2 q30 min done with no changes in LOC, remain stable. Pt. denies headache, N/V, and double vision. All due PM medications administered as ordered and tolerated well. No s/sx of bleeding or swelling on RT. elbow, pt. continue to denies pain or discomfort. No s/sx of hypo/hyperglycemia. 1744 Received call from son ([place]), gave R/P updates on pt. condition. R/P thankful for call received and requested to be notified once rt elbow x-ray results are in, no further concerns at this time. 1804 X-ray tech in pt. room for stat order. Will continue to monitor pt. accordingly and relayed endorsement to next shift.
--- NOTE | 2018-06-09 18:57 | NUR ---
Placed call to son (Fermin) to relay RT. elbow x-ray result. Unable to touchbase at this, left voicemail to call unit back. Will endorse to oncoming shift.
[2018-06-09] MEDS: ATORVASTATIN 40 MG TABLET PO SCH (20:07)
[2018-06-09] MEDS: TAMSULOSIN HCL 0.4 MG CAP.SR.24H PO SCH (20:07)
[2018-06-09] MEDS: ACETAMINOPHEN 325 MG TABLET PO PRN (20:07)
[2018-06-09] MEDS: DOCUSATE SODIUM 100 MG CAPSULE PO SCH (20:09)
--- NOTE | 2018-06-09 21:35 | NUR ---
Received pt resting in bed. No acute distress noted. No c/o pain or discomfort. BP elevated 153/75, HR 87. Routine meds given including lopressor 25mg given at 2007. At 2122, BP continues to be elevated 166/83, HR 74. Notified Kelvin CORRALES, received new order for hydralazine 10mg PO once. Will carry out order. Pt has mcfarlane catheter, draining well with clear yellow colored urine. Turned and repositioned. Safety measures maintained. Call light and personal belongings within reach. Will continue to monitor.
[2018-06-09] MEDS ORDERED: hydrALAZINE HCL 10 MG TABLET PO ONE (21:45)
--- NOTE | 2018-06-09 23:12 | NUR ---
BP went down from 166/83 to 136/66. Will continue to monitor.
[2018-06-10 05:00] VITALS: BP 136/71
[2018-06-10] MEDS: CEPHALEXIN MONOHYDRATE 250 MG CAPSULE PO SCH ×3 (06:34→21:08)
[2018-06-10] MEDS: BLOOD SUGAR DIAGNOSTIC 1 EACH STRIP VI SCH ×4 (06:44→20:26)
[2018-06-10 07:30] VITALS: BP 185/92
[2018-06-10] MEDS: INSULIN REGULAR, HUMAN 300 UNIT/3 ML VIAL SQ PRN ×4 (07:47→20:31)
[2018-06-10] MEDS: risperiDONE 0.25 MG TABLET PO SCH ×3 (08:03→16:19)
[2018-06-10] MEDS: ACIDOPHILUS/BULGARICUS CHEW TAB PO SCH ×2 (08:03→16:19)
[2018-06-10] MEDS: ASCORBIC ACID 500 MG TABLET PO SCH (08:03)
[2018-06-10] MEDS: MULTIVITAMINS,THERAPEUTIC TABLET PO SCH (08:04)
[2018-06-10] MEDS: DULOXETINE 30 MG CAPSULE.DR PO SCH ×2 (08:04→12:38)
[2018-06-10] MEDS: FUROSEMIDE 20 MG TABLET PO SCH (08:04)
[2018-06-10] MEDS: ASPIRIN EC 81 MG TABLET.DR PO SCH (08:04)
[2018-06-10] MEDS: BENZTROPINE MESYLATE 0.5 MG TABLET PO SCH (08:04)
[2018-06-10] MEDS: AMLODIPINE 10 MG TABLET PO SCH (08:04)
[2018-06-10 10:00] VITALS: BP_SYST 140; BP_SYST 160; BP_DIAS 71; BP_DIAS 90
[2018-06-10] MEDS: METOPROLOL TARTRATE 25 MG TABLET PO SCH ×2 (12:35→20:25)
--- NOTE | 2018-06-10 13:59 | NUR ---
INTERDISCIPLINARY TEAM CONFERENCE
[2018-06-10 15:59] VITALS: BP 162/78
[2018-06-10] MEDS: hydrALAZINE HCL 10 MG TABLET PO PRN (16:19)
[2018-06-10 19:56] VITALS: BP 127/60
[2018-06-10] MEDS: ATORVASTATIN 40 MG TABLET PO SCH (20:25)
[2018-06-10] MEDS: ACETAMINOPHEN 325 MG TABLET PO PRN (20:25)
[2018-06-10] MEDS: TAMSULOSIN HCL 0.4 MG CAP.SR.24H PO SCH (20:25)
[2018-06-10] MEDS: DOCUSATE SODIUM 100 MG CAPSULE PO SCH (20:26)
--- NOTE | 2018-06-10 20:53 | NUR ---
Received pt resting in bed. AAO x2. No acute distress noted. FLACC of 2 noted. PRN Tylenol given. VSS. Routine meds and insulin coverage given as ordered. Murry catheter draining well with clear yellow colored urine. Safety measures maintained. Bed alarm on. Call light and personal belongings within reach. Will continue to monitor.
[2018-06-10] MEDS ORDERED: CEPHALEXIN MONOHYDRATE 250 MG CAPSULE ONE (23:55)
[2018-06-11] MEDS: CEPHALEXIN MONOHYDRATE 250 MG CAPSULE PO SCH ×2 (05:09→13:05)
[2018-06-11 05:35] VITALS: BP 125/71
[2018-06-11] MEDS: BLOOD SUGAR DIAGNOSTIC 1 EACH STRIP VI SCH ×4 (06:39→20:39)
[2018-06-11] MEDS: DULOXETINE 30 MG CAPSULE.DR PO SCH ×2 (08:54→13:05)
[2018-06-11] MEDS: ASCORBIC ACID 500 MG TABLET PO SCH (08:54)
[2018-06-11] MEDS: ACIDOPHILUS/BULGARICUS CHEW TAB PO SCH ×2 (08:54→16:21)
[2018-06-11] MEDS: risperiDONE 0.25 MG TABLET PO SCH ×3 (08:55→16:21)
[2018-06-11] MEDS: METOPROLOL TARTRATE 25 MG TABLET PO SCH ×2 (08:55→20:39)
[2018-06-11] MEDS: AMLODIPINE 10 MG TABLET PO SCH (08:55)
[2018-06-11] MEDS: BENZTROPINE MESYLATE 0.5 MG TABLET PO SCH (08:55)
[2018-06-11] MEDS: ASPIRIN EC 81 MG TABLET.DR PO SCH (08:55)
[2018-06-11] MEDS: MULTIVITAMINS,THERAPEUTIC TABLET PO SCH (08:55)
[2018-06-11] MEDS: INSULIN REGULAR, HUMAN 300 UNIT/3 ML VIAL SQ PRN ×4 (08:58→20:53)
--- NOTE | 2018-06-11 10:00 | NUR ---
received patient asleep comfortably in bed. no s/s acute distress. mcfarlane catheter draining dark urine. will continue to monitor
--- NOTE | 2018-06-11 18:46 | NUR ---
patient stable this shift. VSS. no s/s acute distress. mcfarlane draining vanessa urine with minimal blood tinged sediment. blood may be due to patient tugging on mcfarlane catheter. catheter moved several times away from patients reach, patient reminded to not touch catheter, and distractions/barriers provided. no c/o pain. per previous shift MD is aware of urine appearance. will endorse to oncoming shift.
--- NOTE | 2018-06-11 19:34 | NUR ---
Received pt in bed, resting comfortably watching television. AAO x 2, no acute distress noted. Verbally responsive and able to make needs known. Denies pain or discomfort at this time. Noted with mcfarlane cath draining well, clear yellow urine into bag. All safety measures and fall precautions maintained. Bed alarm on. Call light and all personal belongings within reach. Will continue to monitor.
[2018-06-11 19:53] VITALS: BP 137/70
[2018-06-11] MEDS: TAMSULOSIN HCL 0.4 MG CAP.SR.24H PO SCH (20:39)
[2018-06-11] MEDS: ATORVASTATIN 40 MG TABLET PO SCH (20:39)
[2018-06-11] MEDS: DOCUSATE SODIUM 100 MG CAPSULE PO SCH (20:39)
[2018-06-11] MEDS: ACETAMINOPHEN 325 MG TABLET PO PRN (20:54)
--- NOTE | 2018-06-12 05:57 | NUR ---
Patient noted to be in pain, when asked to rate pain scale - unable to rate. Noted with facial grimacing, groaning. When asked where pain is, pt states that it is his mcfarlane catheter. Noted 400 cc in bag, clear vanessa urine. Pt noted throughout shift to be tugging on mcfarlane cath, education provided multiple times on importance of mcfarlane cath as well as risks and benefits with verbalized understanding each time. Mcfarlane bag changed. Noted with hematuria. Refusing AM care and vitals, stating he "will wait for his pain to go away". Offered x 3. Medicated with PRN tylenol 650 mg, tolerated whole pills well with apple sauce. Will endorse accordingly to AM shift. Safety maintained. Will continue to monitor.
[2018-06-12] MEDS: ACETAMINOPHEN 325 MG TABLET PO PRN ×2 (06:10→20:59)
[2018-06-12] MEDS: BLOOD SUGAR DIAGNOSTIC 1 EACH STRIP VI SCH ×4 (06:32→20:57)
[2018-06-12] MEDS: AMLODIPINE 10 MG TABLET PO SCH (09:01)
[2018-06-12] MEDS: ASCORBIC ACID 500 MG TABLET PO SCH (09:02)
[2018-06-12] MEDS: ACIDOPHILUS/BULGARICUS CHEW TAB PO SCH ×2 (09:02→17:17)
[2018-06-12] MEDS: DULOXETINE 30 MG CAPSULE.DR PO SCH ×2 (09:02→12:06)
[2018-06-12] MEDS: MULTIVITAMINS,THERAPEUTIC TABLET PO SCH (09:02)
[2018-06-12] MEDS: METOPROLOL TARTRATE 25 MG TABLET PO SCH ×2 (09:02→21:00)
[2018-06-12] MEDS: ASPIRIN EC 81 MG TABLET.DR PO SCH (09:03)
[2018-06-12] MEDS: FUROSEMIDE 20 MG TABLET PO SCH (09:03)
[2018-06-12] MEDS: risperiDONE 0.25 MG TABLET PO SCH ×3 (09:03→17:19)
[2018-06-12] MEDS: BENZTROPINE MESYLATE 0.5 MG TABLET PO SCH (09:04)
[2018-06-12] MEDS: INSULIN REGULAR, HUMAN 300 UNIT/3 ML VIAL SQ PRN ×4 (09:06→21:17)
--- NOTE | 2018-06-12 19:20 | NUR ---
Received patient in bed. Alert and verbally responsive. Able to make needs known. Denies any pain and discomfort at this time. No acute distress. No SOB. Kept clean and dry. Murry catheter intact. Draining clear yellow urine. All needs attended to promptly. Call light within reach. Will continue to monitor.
[2018-06-12 20:00] VITALS: BP 144/66
[2018-06-12] MEDS: ATORVASTATIN 40 MG TABLET PO SCH (20:59)
[2018-06-12] MEDS: DOCUSATE SODIUM 100 MG CAPSULE PO SCH (20:59)
[2018-06-12] MEDS: TAMSULOSIN HCL 0.4 MG CAP.SR.24H PO SCH (21:04)
[2018-06-12] MEDS: INSULIN GLARGINE,HUM 300 UNITS/3 ML CARTRIDGE SQ SCH (21:17)
[2018-06-13 04:00] VITALS: BP 140/70
[2018-06-13] MEDS: BLOOD SUGAR DIAGNOSTIC 1 EACH STRIP VI SCH ×4 (06:41→20:34)
[2018-06-13 08:05] VITALS: BP 165/83
--- NOTE | 2018-06-13 08:05 | NUR ---
Received patient in bed, sleeping, easily arousable, not in any form of acute distress. No complain of any pain or discomfort at this. Murry catheter in place and patent draining clear yellow urine. Call light and frequently used items placed within reach. Maintained on fall precaution.
[2018-06-13] MEDS: DULOXETINE 30 MG CAPSULE.DR PO SCH ×2 (08:46→12:32)
[2018-06-13] MEDS: ACIDOPHILUS/BULGARICUS CHEW TAB PO SCH ×2 (08:46→16:33)
[2018-06-13] MEDS: MULTIVITAMINS,THERAPEUTIC TABLET PO SCH (08:46)
[2018-06-13] MEDS: risperiDONE 0.25 MG TABLET PO SCH ×3 (08:46→16:33)
[2018-06-13] MEDS: BENZTROPINE MESYLATE 0.5 MG TABLET PO SCH (08:46)
[2018-06-13] MEDS: ASCORBIC ACID 500 MG TABLET PO SCH (08:46)
[2018-06-13] MEDS: ASPIRIN EC 81 MG TABLET.DR PO SCH (08:46)
[2018-06-13] MEDS: AMLODIPINE 10 MG TABLET PO SCH (08:47)
[2018-06-13] MEDS: METOPROLOL TARTRATE 25 MG TABLET PO SCH ×2 (08:54→20:35)
[2018-06-13] MEDS: INSULIN REGULAR, HUMAN 300 UNIT/3 ML VIAL SQ PRN ×4 (09:04→20:39)
[2018-06-13 10:03] VITALS: BP 143/85
--- NOTE | 2018-06-13 14:00 | NUR ---
Patient up on bed, done with lunch, given his due medications and tolerated well. He denies any pain or discomfort at this time.
[2018-06-13 15:04] VITALS: BP 141/63
[2018-06-13 19:30] VITALS: BP 150/67
[2018-06-13] MEDS: DOCUSATE SODIUM 100 MG CAPSULE PO SCH (20:34)
[2018-06-13] MEDS: TAMSULOSIN HCL 0.4 MG CAP.SR.24H PO SCH (20:34)
[2018-06-13] MEDS: ATORVASTATIN 40 MG TABLET PO SCH (20:35)
[2018-06-13] MEDS: INSULIN GLARGINE,HUM 300 UNITS/3 ML CARTRIDGE SQ SCH (20:38)
[2018-06-14 04:00] VITALS: BP 130/60
[2018-06-14] MEDS: BLOOD SUGAR DIAGNOSTIC 1 EACH STRIP VI SCH ×4 (06:38→20:44)
[2018-06-14 08:00] VITALS: BP 153/60
[2018-06-14] MEDS: ACIDOPHILUS/BULGARICUS CHEW TAB PO SCH ×2 (08:40→16:27)
[2018-06-14] MEDS: AMLODIPINE 10 MG TABLET PO SCH (08:40)
[2018-06-14] MEDS: MULTIVITAMINS,THERAPEUTIC TABLET PO SCH (08:40)
[2018-06-14] MEDS: ASCORBIC ACID 500 MG TABLET PO SCH (08:40)
[2018-06-14] MEDS: ASPIRIN EC 81 MG TABLET.DR PO SCH (08:40)
[2018-06-14] MEDS: FUROSEMIDE 20 MG TABLET PO SCH (08:40)
[2018-06-14] MEDS: DULOXETINE 30 MG CAPSULE.DR PO SCH ×2 (08:40→12:06)
[2018-06-14] MEDS: METOPROLOL TARTRATE 25 MG TABLET PO SCH ×2 (08:41→20:41)
[2018-06-14] MEDS: BENZTROPINE MESYLATE 0.5 MG TABLET PO SCH (08:42)
[2018-06-14] MEDS: risperiDONE 0.25 MG TABLET PO SCH ×3 (08:42→16:27)
--- NOTE | 2018-06-14 09:10 | NUR ---
Received pt. in bed with eyes open and comfortable. Denies CP or SOB. No c/o of pain or discomfort. Pt. A/OX2-3 with episodes of forgetfulness. Pt. able to follow command and verbalized needs. All due AM medications given as ordered and tolerated well. Pt. compliant with regimen at this time. All pt. needs attended promptly. No s/sx of hypo/hyperglycemia. Pt. room in direct visual field from nursing station for close monitoring for fall precaution. Safety measures in place, bed in lowest position, 2x upper SR up as enabler, encouraged pt. to use call light system for assistance. Call light and all frequently used items in place. Will continue to monitor accordingly.
[2018-06-14] MEDS: INSULIN REGULAR, HUMAN 300 UNIT/3 ML VIAL SQ PRN ×2 (12:00→16:28)
[2018-06-14 16:00] VITALS: BP 129/70
--- NOTE | 2018-06-14 18:11 | NUR ---
EOS NOTE: No significant change during this shift. All pt. need attended and met. All due medications given as ordered. No c/o SOB or CP. Pt. participated with PT/OT/ST, tolerated well. Kept pt. clean and dry throughout this shift. Rt. lower back biopsy site dressing changed as ordered, no s/sx of infection at site. No s/sx of bleeding or hypo/hyperglycemia. F/C with yellow color urine output, no sediments noted. Safety measures in place. Call light and all frequently used items in reach. Will endorse to oncoming shift.
[2018-06-14 20:12] VITALS: BP 125/52
[2018-06-14] MEDS: ATORVASTATIN 40 MG TABLET PO SCH (20:40)
[2018-06-14] MEDS: DOCUSATE SODIUM 100 MG CAPSULE PO SCH (20:40)
[2018-06-14] MEDS: INSULIN GLARGINE,HUM 300 UNITS/3 ML CARTRIDGE SQ SCH (20:47)
[2018-06-14] MEDS: TAMSULOSIN HCL 0.4 MG CAP.SR.24H PO SCH (20:48)
[2018-06-15 04:00] VITALS: BP 130/52
[2018-06-15] MEDS: BLOOD SUGAR DIAGNOSTIC 1 EACH STRIP VI SCH ×4 (06:31→20:44)
--- NOTE | 2018-06-15 07:56 | NUR ---
IN BED ASLEEP RESTING QUIETLY. IN NO ACUTE DISTRESS VSS
[2018-06-15 08:00] VITALS: BP 130/77
[2018-06-15] MEDS: MULTIVITAMINS,THERAPEUTIC TABLET PO SCH (09:42)
[2018-06-15] MEDS: DULOXETINE 30 MG CAPSULE.DR PO SCH ×2 (09:42→11:56)
[2018-06-15] MEDS: ACIDOPHILUS/BULGARICUS CHEW TAB PO SCH ×2 (09:42→17:29)
[2018-06-15] MEDS: AMLODIPINE 10 MG TABLET PO SCH (09:42)
[2018-06-15] MEDS: METOPROLOL TARTRATE 25 MG TABLET PO SCH ×2 (09:43→20:22)
[2018-06-15] MEDS: ASCORBIC ACID 500 MG TABLET PO SCH (09:43)
[2018-06-15] MEDS: ASPIRIN EC 81 MG TABLET.DR PO SCH (09:44)
[2018-06-15] MEDS: risperiDONE 0.25 MG TABLET PO SCH ×3 (09:45→17:29)
[2018-06-15] MEDS: BENZTROPINE MESYLATE 0.5 MG TABLET PO SCH (09:45)
[2018-06-15] MEDS: INSULIN REGULAR, HUMAN 300 UNIT/3 ML VIAL SQ PRN ×2 (11:58→20:50)
--- NOTE | 2018-06-15 13:36 | NUR ---
INTERDISCIPLINARY TEAM CONFERENCE
--- NOTE | 2018-06-15 14:50 | NUR ---
WOUND CARE CONSULT: PT PRESENTS WITH SCAR TO BACK AREA (PREVIOUS BIOPSY SITE) AND RASH TO PERINEUM, GROIN, INNER THIGH AREA. RECOMMENDATIONS MADE FOR SKIN PROTECTION AND CARE. DISCUSSED WITH NURSING STAFF. OLGA STEEN. WILL SEE PRN. CURRENT CHRISTINA SCORE IS 18. MD IN AGREEMENT WITH PLAN OF CARE. Addendum: 06/15/18 at 1452 by MAYELIN FALL RN Amended: Links added. Addendum: 06/15/18 at 1458 by MAYELIN FALL RN DEFER TO PLASTICS TEAM FOR BIOPSY SITE TO BACK.
[2018-06-15 16:00] VITALS: BP 133/72
[2018-06-15] MEDS ORDERED: CLOTRIMAZOLE 1% CREAM 30 GM TUBE TOP SCH (17:00)
[2018-06-15 19:30] VITALS: BP 157/80
--- NOTE | 2018-06-15 20:00 | NUR ---
nsg: Received patient laying in bed. plesant upon approach. Alert and verbally responsive. Able to make needs known. no c/o pain or discomfort at this time. No acute distress. No SOB. Kept clean and dry. Murry catheter intact and Draining yellow urine. All needs attended to promptly. Call light within reach. Will continue to monitor.
[2018-06-15] MEDS: TAMSULOSIN HCL 0.4 MG CAP.SR.24H PO SCH (20:23)
[2018-06-15] MEDS: DOCUSATE SODIUM 100 MG CAPSULE PO SCH (20:23)
[2018-06-15] MEDS: ATORVASTATIN 40 MG TABLET PO SCH (20:23)
[2018-06-15] MEDS: INSULIN GLARGINE,HUM 300 UNITS/3 ML CARTRIDGE SQ SCH (20:49)
[2018-06-15 21:00] VITALS: BP 132/78
--- NOTE | 2018-06-16 05:52 | NUR ---
nsg: remain calm and cooperative through the shift. denied pain or discomfort at this time. assisted with adl's. f/c draining yellow urine. kept clean and dry. call light w/in reach.
[2018-06-16] MEDS: BLOOD SUGAR DIAGNOSTIC 1 EACH STRIP VI SCH ×4 (06:20→20:38)
[2018-06-16 06:37] LABS: BASOPHILS # (AUTO) 0.1 K/uL (0.0-8.0); BASOPHILS % (AUTO) 0.9 % (0.0-2.0); EOSINOPHILS # (AUTO) 0.3 K/uL (0.0-0.7); EOSINOPHILS % (AUTO) 3.5 % (0.0-7.0); HEMATOCRIT 33.7 % (36.7-47.1); HEMOGLOBIN 11.7 g/dL (12.5-16.3); LYMPHOCYTES # (AUTO) 2.4 K/uL (20.0-40.0); LYMPHOCYTES % (AUTO) 24.8 % (20.5-51.5); MEAN CORPUSCULAR HEMOGLOBIN 31.1 uug (23.8-33.4); MEAN CORPUSCULAR HGB CONC 35 g/dL (32.5-36.3); MEAN CORPUSCULAR VOLUME 89.4 fL (73.0-96.2); MONOCYTES # (AUTO) 0.8 K/uL (2.0-10.0); NEUTROPHILS % (AUTO) 62.8 % (38.5-71.5); PLATELET COUNT (AUTO) 283 K/uL (152-348); RED BLOOD CELL COUNT(AUTO) 3.77 MIL/uL (4.06-5.63); WHITE BLOOD COUNT (AUTO) 9.6 K/uL (3.6-10.2)
[2018-06-16 06:53] LABS: ALANINE AMINOTRANSFERASE 15 U/L (16-63); ALKALINE PHOSPHATASE 75 U/L (50-136); ASPARTATE AMINOTRANSFERASE 11 U/L (15-37); BILIRUBIN,TOTAL 0.6 mg/dL (0.2-1.0); CARBON DIOXIDE 33 mmol/L (21-32); CHLORIDE 102 mmol/L (98-107); CREATININE 1.3 mg/dL (0.6-1.3); GLUCOSE 129 mg/dL (74-106); MAGNESIUM 1.7 mg/dL (1.8-2.4); PHOSPHOROUS 3.7 mg/dL (2.5-4.9); TOTAL PROTEIN, SERUM 6.8 g/dL (6.4-8.2); UREA NITROGEN, BLOOD 20 mg/dL (7-18)
[2018-06-16 08:00] VITALS: BP 149/79
[2018-06-16] MEDS: ASPIRIN EC 81 MG TABLET.DR PO SCH (09:49)
[2018-06-16] MEDS: FUROSEMIDE 20 MG TABLET PO SCH (09:49)
[2018-06-16] MEDS: ACIDOPHILUS/BULGARICUS CHEW TAB PO SCH ×2 (09:49→17:15)
[2018-06-16] MEDS: MULTIVITAMINS,THERAPEUTIC TABLET PO SCH (09:49)
[2018-06-16] MEDS: METOPROLOL TARTRATE 25 MG TABLET PO SCH ×2 (09:49→20:35)
[2018-06-16] MEDS: BENZTROPINE MESYLATE 0.5 MG TABLET PO SCH (09:50)
[2018-06-16] MEDS: AMLODIPINE 10 MG TABLET PO SCH (09:50)
[2018-06-16] MEDS: DULOXETINE 30 MG CAPSULE.DR PO SCH ×2 (09:50→11:56)
[2018-06-16] MEDS: risperiDONE 0.25 MG TABLET PO SCH ×3 (09:50→17:15)
[2018-06-16] MEDS: ASCORBIC ACID 500 MG TABLET PO SCH (09:50)
[2018-06-16] MEDS: INSULIN REGULAR, HUMAN 300 UNIT/3 ML VIAL SQ PRN ×2 (11:56→17:11)
[2018-06-16] MEDS ORDERED: MAGNESIUM OXIDE 400 MG TABLET PO ONE (15:15)
[2018-06-16] MEDS: POTASSIUM CHLORIDE 20 MEQ POWDER PACKET PO SCH ×2 (15:29→17:15)
[2018-06-16] MEDS: CLOTRIMAZOLE 1% CREAM 30 GM TUBE TOP SCH ×2 (15:44→17:17)
[2018-06-16 16:00] VITALS: BP 131/63
[2018-06-16 20:08] VITALS: BP 140/68
--- NOTE | 2018-06-16 20:30 | NUR ---
NSG: Received patient laying in bed. Alert and verbally responsive. Able to make needs known. no c/o pain or discomfort at this time. No acute distress. No SOB. Kept clean and dry. Murry catheter intact and Draining yellow urine. All needs attended to promptly. Call light within reach. Will continue to monitor.
[2018-06-16] MEDS: ATORVASTATIN 40 MG TABLET PO SCH (20:35)
[2018-06-16] MEDS: DOCUSATE SODIUM 100 MG CAPSULE PO SCH (20:35)
[2018-06-16] MEDS: TAMSULOSIN HCL 0.4 MG CAP.SR.24H PO SCH (20:35)
[2018-06-16] MEDS: INSULIN GLARGINE,HUM 300 UNITS/3 ML CARTRIDGE SQ SCH (20:42)
[2018-06-17] MEDS: BLOOD SUGAR DIAGNOSTIC 1 EACH STRIP VI SCH ×4 (05:45→21:38)
[2018-06-17 06:43] VITALS: BP 138/62
--- NOTE | 2018-06-17 06:55 | NUR ---
NSG: SLEPT WELL. NO C/O PAIN OR DISCOMFORT AT THIS TIME. GOOD GHAZALA CARE PROVIDED.KEPT CLEAN AND DRY. CALL LIGHT W/IN REACH.
[2018-06-17 08:00] VITALS: BP 159/97
[2018-06-17] MEDS: INSULIN REGULAR, HUMAN 300 UNIT/3 ML VIAL SQ PRN ×4 (09:00→21:36)
--- NOTE | 2018-06-17 09:32 | NUR ---
Received pt. in bed with eyes closed and comfortable. No s/sx of pain or discomfort. All pt. needs attended promptly. No s/sx of hypo/hyperglycemia. Pt. room in direct visual field from nursing station for close monitoring and fall precaution. Safety measures in place, bed in lowest position, 2x upper SR up as enabler. Call light and all frequently used items in place. Will continue to monitor accordingly.
[2018-06-17] MEDS: DULOXETINE 30 MG CAPSULE.DR PO SCH ×2 (09:44→12:20)
[2018-06-17] MEDS: BENZTROPINE MESYLATE 0.5 MG TABLET PO SCH (09:44)
[2018-06-17] MEDS: ASPIRIN EC 81 MG TABLET.DR PO SCH (09:44)
[2018-06-17] MEDS: AMLODIPINE 10 MG TABLET PO SCH (09:44)
[2018-06-17] MEDS: ACIDOPHILUS/BULGARICUS CHEW TAB PO SCH ×2 (09:44→17:13)
[2018-06-17] MEDS: ASCORBIC ACID 500 MG TABLET PO SCH (09:44)
[2018-06-17] MEDS: MULTIVITAMINS,THERAPEUTIC TABLET PO SCH (09:44)
[2018-06-17] MEDS: risperiDONE 0.25 MG TABLET PO SCH ×3 (09:44→17:13)
[2018-06-17] MEDS: METOPROLOL TARTRATE 25 MG TABLET PO SCH ×2 (09:45→21:33)
[2018-06-17] MEDS: CLOTRIMAZOLE 1% CREAM 30 GM TUBE TOP SCH ×2 (09:46→17:14)
[2018-06-17 16:40] VITALS: BP 116/56
--- NOTE | 2018-06-17 18:37 | NUR ---
EOS NOTE: No significant change during this shift. All pt. need attended and met. All due medications given as ordered. No c/o SOB or CP. Pt. participated with PT/OT/ST, tolerated well. Kept pt. clean and dry throughout this shift. Skin care rendered. Pt. received bed bath today. Rt. lower back biopsy site dressing changed as ordered, no s/sx of infection at site. No s/sx of bleeding or hypo/hyperglycemia. F/C with yellow color urine output, no sediments noted. Safety measures in place. Call light and all frequently used items in reach. Will endorse to oncoming shift.
--- NOTE | 2018-06-17 19:25 | NUR ---
Hand-Off Report received form Jimmy ESCOBEDO. Assumed care of pt at this time. Right low back dressing CDI. Denies chest pain or SOB. RA Sat 94%.
[2018-06-17 19:41] VITALS: BP 134/72
--- NOTE | 2018-06-17 21:00 | NUR ---
Murry cath to gravity flow draining tea colored urine with easily notable sedimentation Accu check 138. 2 Units Hum R per S/S and 16 Units of Lantus. Bilateral laborer marine terminal and pedal pushed equal and strong.
[2018-06-17] MEDS: ATORVASTATIN 40 MG TABLET PO SCH (21:32)
[2018-06-17] MEDS: DOCUSATE SODIUM 100 MG CAPSULE PO SCH (21:32)
[2018-06-17] MEDS: TAMSULOSIN HCL 0.4 MG CAP.SR.24H PO SCH (21:32)
[2018-06-17] MEDS: INSULIN GLARGINE,HUM 300 UNITS/3 ML CARTRIDGE SQ SCH (21:35)
--- NOTE | 2018-06-18 | NUR ---
150 ml. of tea-colored urine with slightly foul odor emptied from mcfarlane bag. Noted sedimentation easily visible.
[2018-06-18 05:00] VITALS: BP 144/58
--- NOTE | 2018-06-18 05:00 | NUR ---
Bed bath given. Removed facial white flakey dry scales and lotion applied to entire body. Pt denies having eczema or psoriasis or any other skin condition. Sima area cleaned, dried and Lotrimen Creme applied. Oral care given. Pt affect engaging. 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 Weighed 218.8 pounds per bed scale.
--- NOTE | 2018-06-18 07:05 | NUR ---
Hand-off report given to on-coming nurse Jimmy ESCOBEDO who assumed care of pt at this time. Pt total urine output for this shift 250 tea colored urine with sedimentation. Intake 170. No c/o. AOX1-2. Reliquished care of pt at this time.
--- NOTE | 2018-06-18 07:30 | NUR ---
Correction: BS 92 instead of 93.
[2018-06-18] MEDS: BLOOD SUGAR DIAGNOSTIC 1 EACH STRIP VI SCH ×4 (07:31→22:29)
[2018-06-18 07:38] VITALS: BP 141/68
[2018-06-18] MEDS: ASCORBIC ACID 500 MG TABLET PO SCH (08:29)
[2018-06-18] MEDS: FUROSEMIDE 20 MG TABLET PO SCH (08:29)
[2018-06-18] MEDS: ACIDOPHILUS/BULGARICUS CHEW TAB PO SCH ×2 (08:29→16:29)
[2018-06-18] MEDS: DULOXETINE 30 MG CAPSULE.DR PO SCH ×2 (08:29→12:10)
[2018-06-18] MEDS: METOPROLOL TARTRATE 25 MG TABLET PO SCH ×2 (08:30→22:25)
[2018-06-18] MEDS: MULTIVITAMINS,THERAPEUTIC TABLET PO SCH (08:30)
[2018-06-18] MEDS: AMLODIPINE 10 MG TABLET PO SCH (08:30)
[2018-06-18] MEDS: CLOTRIMAZOLE 1% CREAM 30 GM TUBE TOP SCH ×2 (08:31→16:33)
[2018-06-18] MEDS: ASPIRIN EC 81 MG TABLET.DR PO SCH (09:14)
[2018-06-18] MEDS: risperiDONE 0.25 MG TABLET PO SCH ×3 (09:14→16:29)
[2018-06-18] MEDS: BENZTROPINE MESYLATE 0.5 MG TABLET PO SCH (09:14)
[2018-06-18] MEDS: INSULIN REGULAR, HUMAN 300 UNIT/3 ML VIAL SQ PRN ×4 (09:16→22:30)
--- NOTE | 2018-06-18 09:38 | NUR ---
Received pt. in bed with eyes closed and comfortable. No s/sx of pain or discomfort. All pt. needs attended promptly. No s/sx of hypo/hyperglycemia, last BS @ 0630: 92 mg/dl. All due AM medications administered as ordered and tolerated well. Pt. consumed 100% of breakfast. Pt. room in direct visual field from nursing station for close monitoring and fall precaution. Safety measures in place, bed in lowest position, 2x upper SR up as enabler. Call light and all frequently used items in place. Will continue to monitor accordingly.
[2018-06-18 16:04] VITALS: BP 121/57
--- NOTE | 2018-06-18 17:50 | NUR ---
EOS NOTE: No significant change during this shift. All pt. need attended and met. All due medications given as ordered. No c/o SOB or CP. Pt. participated with PT/OT, tolerated well. Kept pt. clean and dry throughout this shift. Skin care rendered. Rt. lower back biopsy site dressing changed as ordered, no s/sx of infection at site. No s/sx of bleeding or hypo/hyperglycemia. F/C with tea color urine output, no sediments noted. Safety measures in place. Call light and all frequently used items in reach. Will endorse to oncoming shift.
--- NOTE | 2018-06-18 19:30 | NUR ---
ON BED AWAKE, ALERT AND RESPONSIVE NOT IN DISTRESS DURING NURSING ROUNDS.
[2018-06-18 20:30] VITALS: BP 146/74
[2018-06-18] MEDS: DOCUSATE SODIUM 100 MG CAPSULE PO SCH (22:14)
[2018-06-18] MEDS: ATORVASTATIN 40 MG TABLET PO SCH (22:18)
[2018-06-18] MEDS: TAMSULOSIN HCL 0.4 MG CAP.SR.24H PO SCH (22:18)
[2018-06-18] MEDS: INSULIN GLARGINE,HUM 300 UNITS/3 ML CARTRIDGE SQ SCH (22:27)
[2018-06-19] MEDS: BLOOD SUGAR DIAGNOSTIC 1 EACH STRIP VI SCH ×4 (06:38→21:38)
[2018-06-19 06:56] VITALS: BP 144/74
[2018-06-19] MEDS: ASPIRIN EC 81 MG TABLET.DR PO SCH (09:21)
[2018-06-19] MEDS: MULTIVITAMINS,THERAPEUTIC TABLET PO SCH (09:21)
[2018-06-19] MEDS: DULOXETINE 30 MG CAPSULE.DR PO SCH ×2 (09:21→12:07)
[2018-06-19] MEDS: ASCORBIC ACID 500 MG TABLET PO SCH (09:21)
[2018-06-19] MEDS: ACIDOPHILUS/BULGARICUS CHEW TAB PO SCH ×2 (09:21→17:01)
[2018-06-19] MEDS: BENZTROPINE MESYLATE 0.5 MG TABLET PO SCH (09:22)
[2018-06-19] MEDS: risperiDONE 0.25 MG TABLET PO SCH ×3 (09:22→17:01)
[2018-06-19] MEDS: AMLODIPINE 10 MG TABLET PO SCH (09:23)
[2018-06-19] MEDS: METOPROLOL TARTRATE 25 MG TABLET PO SCH ×2 (09:24→20:57)
[2018-06-19] MEDS: CLOTRIMAZOLE 1% CREAM 30 GM TUBE TOP SCH ×2 (09:36→17:02)
[2018-06-19] MEDS: INSULIN REGULAR, HUMAN 300 UNIT/3 ML VIAL SQ PRN ×2 (12:09→17:06)
[2018-06-19 16:00] VITALS: BP 105/66
--- NOTE | 2018-06-19 16:38 | NUR ---
SBAR report and Pt received this morning, resting in bed, AAOx1-2 with confusion. Pt assessed, denies pain, no acute distress, or SOB noted. Pt complaint with routine medication administration taken with apple sauce. Wound care provided as ordered. Pt assisted to bathroom, no BM. Murry catheter intact, care provided, flushed, clot dislodged, draining yellow and slightly vanessa urine. Bed in locked and lowest position with sided rails up, and bed alarm on. All comfort and safety measures implemented. Call light placed within reach. Will continue to monitor.
[2018-06-19] MEDS: DOCUSATE SODIUM 100 MG CAPSULE PO SCH (20:56)
[2018-06-19] MEDS: ATORVASTATIN 40 MG TABLET PO SCH (20:57)
[2018-06-19] MEDS: TAMSULOSIN HCL 0.4 MG CAP.SR.24H PO SCH (20:57)
[2018-06-19 21:15] VITALS: BP 115/60
[2018-06-19] MEDS: INSULIN GLARGINE,HUM 300 UNITS/3 ML CARTRIDGE SQ SCH (21:40)
[2018-06-20 07:00] VITALS: BP 143/82
[2018-06-20] MEDS: BLOOD SUGAR DIAGNOSTIC 1 EACH STRIP VI SCH ×4 (07:31→21:01)
[2018-06-20] MEDS: ACIDOPHILUS/BULGARICUS CHEW TAB PO SCH ×2 (08:37→16:36)
[2018-06-20] MEDS: ASPIRIN EC 81 MG TABLET.DR PO SCH (08:38)
[2018-06-20] MEDS: AMLODIPINE 10 MG TABLET PO SCH (08:38)
[2018-06-20] MEDS: FUROSEMIDE 20 MG TABLET PO SCH (08:39)
[2018-06-20] MEDS: MULTIVITAMINS,THERAPEUTIC TABLET PO SCH (08:39)
[2018-06-20] MEDS: ASCORBIC ACID 500 MG TABLET PO SCH (08:39)
[2018-06-20] MEDS: METOPROLOL TARTRATE 25 MG TABLET PO SCH ×2 (08:40→20:54)
[2018-06-20] MEDS: risperiDONE 0.25 MG TABLET PO SCH ×3 (08:41→16:37)
[2018-06-20] MEDS: BENZTROPINE MESYLATE 0.5 MG TABLET PO SCH (08:41)
[2018-06-20] MEDS: DULOXETINE 30 MG CAPSULE.DR PO SCH ×2 (08:41→12:16)
[2018-06-20] MEDS: CLOTRIMAZOLE 1% CREAM 30 GM TUBE TOP SCH ×2 (09:10→16:39)
[2018-06-20] MEDS: hydrALAZINE HCL 10 MG TABLET PO PRN (09:43)
[2018-06-20] MEDS: ACETAMINOPHEN 325 MG TABLET PO PRN (12:16)
[2018-06-20] MEDS: INSULIN REGULAR, HUMAN 300 UNIT/3 ML VIAL SQ PRN ×3 (12:23→21:03)
[2018-06-20 17:13] VITALS: BP 144/82
--- NOTE | 2018-06-20 17:38 | NUR ---
SBAR report received this morning. Pt resting in bed. Pt reported pain 5/10 to lower back. Pt repositioned and Tylenol administered per PRN orders. Pt assessed, no acute distress of SOB. Compliant with routinely scheduled medications. PRN BP medication administered per SBP>140 parameters for BP 143/82, 72 one hour following routinely scheduled morning medications. Pt seen by MD. SCD pumps applied. Bed in locked and lowest position with side rails up and bed alarm on. All comfort and safety measures implemented. Murry catheter in placed 895 cc of extremely vanessa hematuria drained, catheter care provided. Wound care provided as ordered, genital rash appears red with slight skin pealing. MD aware, new orders received. Call light placed within reach. Will continue to monitor and endorse to on coming night auditor nurse.
[2018-06-20 19:30] VITALS: BP 108/61
--- NOTE | 2018-06-20 19:30 | NUR ---
patient c/o gen: pain 04/09. Tylenol offered patient refused tylenol. stated i am ok.
--- NOTE | 2018-06-20 20:30 | NUR ---
NSG: Received pt laying in bed comfortably.patient Denies pain or discomfort at this time. alert and oriented x2 with period of forgetfulness. held metoprolol 50 mg po due to low blood pressure. Pt. compliant with regimen at this time. All pt. needs attended promptly. No s/sx of hypo/hyperglycemia. Safety measures in place, bed in lowest position, 2 side rail up for safety. Call light and all frequently used items in place. continue monitoring for safety.
[2018-06-20 20:45] VITALS: BP 120/62
[2018-06-20] MEDS: ATORVASTATIN 40 MG TABLET PO SCH (20:52)
[2018-06-20] MEDS: DOCUSATE SODIUM 100 MG CAPSULE PO SCH (20:53)
[2018-06-20] MEDS: TAMSULOSIN HCL 0.4 MG CAP.SR.24H PO SCH (20:53)
[2018-06-20] MEDS: INSULIN GLARGINE,HUM 300 UNITS/3 ML CARTRIDGE SQ SCH (21:04)
[2018-06-21 04:00] VITALS: BP 126/75
--- NOTE | 2018-06-21 05:50 | NUR ---
nsg: slept well through the night. f/c in place draining yellow urine. no c/o pain or discomfort at this time. assisted with adl's. good brant care provided. Repositioned every 2 hrs for skin safety and comfort. call light w/in reach.
[2018-06-21] MEDS: BLOOD SUGAR DIAGNOSTIC 1 EACH STRIP VI SCH ×4 (06:28→21:19)
[2018-06-21 08:29] LABS: BASOPHILS # (AUTO) 0.1 K/uL (0.0-8.0); BASOPHILS % (AUTO) 0.9 % (0.0-2.0); EOSINOPHILS # (AUTO) 0.3 K/uL (0.0-0.7); EOSINOPHILS % (AUTO) 3.7 % (0.0-7.0); HEMATOCRIT 33.3 % (36.7-47.1); HEMOGLOBIN 11.4 g/dL (12.5-16.3); LYMPHOCYTES # (AUTO) 2.4 K/uL (20.0-40.0); LYMPHOCYTES % (AUTO) 30.2 % (20.5-51.5); MEAN CORPUSCULAR HEMOGLOBIN 31.3 uug (23.8-33.4); MEAN CORPUSCULAR HGB CONC 34 g/dL (32.5-36.3); MEAN CORPUSCULAR VOLUME 91.6 fL (73.0-96.2); MONOCYTES # (AUTO) 0.6 K/uL (2.0-10.0); MONOCYTES % (AUTO) 7.9 % (0.0-11.0); NEUTROPHILS # (AUTO) 4.6 K/uL (1.8-8.9); NEUTROPHILS % (AUTO) 57.3 % (38.5-71.5); PLATELET COUNT (AUTO) 288 K/uL (152-348); RED BLOOD CELL COUNT(AUTO) 3.63 MIL/uL (4.06-5.63); WHITE BLOOD COUNT (AUTO) 7.9 K/uL (3.6-10.2)
[2018-06-21 08:37] LABS: CARBON DIOXIDE 30 mmol/L (21-32); CHLORIDE 104 mmol/L (98-107); CREATININE 1.3 mg/dL (0.6-1.3); GLUCOSE 114 mg/dL (74-106); UREA NITROGEN, BLOOD 19 mg/dL (7-18)
[2018-06-21 09:45] VITALS: BP 136/65
[2018-06-21] MEDS: ASCORBIC ACID 500 MG TABLET PO SCH (09:45)
[2018-06-21] MEDS: AMLODIPINE 10 MG TABLET PO SCH (09:45)
[2018-06-21] MEDS: MULTIVITAMINS,THERAPEUTIC TABLET PO SCH (09:45)
[2018-06-21] MEDS: DULOXETINE 30 MG CAPSULE.DR PO SCH ×2 (09:45→13:52)
[2018-06-21] MEDS: ASPIRIN EC 81 MG TABLET.DR PO SCH (09:46)
[2018-06-21] MEDS: METOPROLOL TARTRATE 25 MG TABLET PO SCH ×2 (09:46→21:16)
[2018-06-21] MEDS: risperiDONE 0.25 MG TABLET PO SCH ×3 (09:46→16:34)
[2018-06-21] MEDS: BENZTROPINE MESYLATE 0.5 MG TABLET PO SCH (09:47)
[2018-06-21] MEDS: CLOTRIMAZOLE 1% CREAM 30 GM TUBE TOP SCH ×2 (09:52→16:35)
[2018-06-21] MEDS: ACIDOPHILUS/BULGARICUS CHEW TAB PO SCH ×2 (09:52→16:34)
[2018-06-21] MEDS ORDERED: POTASSIUM CHLORIDE 20 MEQ TAB.PRT.SR PO ONE (11:00)
[2018-06-21] MEDS: POTASSIUM CHLORIDE 20 MEQ POWDER PACKET PO SCH ×2 (12:03→13:52)
[2018-06-21] MEDS: INSULIN REGULAR, HUMAN 300 UNIT/3 ML VIAL SQ PRN ×3 (12:08→21:24)
--- NOTE | 2018-06-21 12:20 | NUR ---
Patient noted 400 bloody urine output with blood clot. Flush 30cc or NS. MD Armstrong notified. referred to urologist. Called MD Heath urologist. page and left a message thru phone call. Potassium level 3.0. MD Armstrong ordered 60 meq of potassium give, tolerated well. will continue monitor
--- NOTE | 2018-06-21 12:50 | NUR ---
For urology consult. Paged and left message for Dr. Heath regarding consult.
--- NOTE | 2018-06-21 14:18 | NUR ---
Md Heath called regarding bloody urine. agreed to visit patient this day.
[2018-06-21 15:39] VITALS: BP 133/68
[2018-06-21] MEDS ORDERED: LEVOFLOXACIN 500 MG TABLET PO SCH (18:30)
--- NOTE | 2018-06-21 18:43 | NUR ---
Patient seen and examined by MD Heath with order PT/APTT, renal JAMIN, urine culture sent to lab. To start levaquin 500mg daily x5days. will continue monitor Addendum: 06/21/18 at 1901 by WILLIAM WOODRUFF RN RN started levaquin 500mg at 1830 for UTI, awaiting urine culture result.
[2018-06-21 20:45] VITALS: BP 129/62
[2018-06-21] MEDS: ATORVASTATIN 40 MG TABLET PO SCH (21:15)
[2018-06-21] MEDS: TAMSULOSIN HCL 0.4 MG CAP.SR.24H PO SCH (21:15)
[2018-06-21] MEDS: DOCUSATE SODIUM 100 MG CAPSULE PO SCH (21:15)
[2018-06-21] MEDS: INSULIN GLARGINE,HUM 300 UNITS/3 ML CARTRIDGE SQ SCH (21:26)
[2018-06-22 05:00] VITALS: BP 151/82
--- NOTE | 2018-06-22 05:08 | NUR ---
awake alert and oriented x2-3 forgetful at times. tolerated po meds well with applesauce. kept comfortable. repositioned for comfort. Murry catheter intact draining vanessa colored urne. Seen by the urologist Dr Heath and ordered some lab works for today and renal ultrasound. patient also started on levaquin 50mg x5 days. Needs attended. accucheck 135. Denies any pain nor any discomfort. will monitor patient.
[2018-06-22] MEDS: BLOOD SUGAR DIAGNOSTIC 1 EACH STRIP VI SCH ×4 (06:37→20:43)
[2018-06-22 07:44] VITALS: BP 152/75
[2018-06-22] MEDS: ACIDOPHILUS/BULGARICUS CHEW TAB PO SCH ×2 (08:53→17:12)
[2018-06-22] MEDS: DULOXETINE 30 MG CAPSULE.DR PO SCH ×2 (08:53→13:08)
[2018-06-22] MEDS: MULTIVITAMINS,THERAPEUTIC TABLET PO SCH (08:54)
[2018-06-22] MEDS: FUROSEMIDE 20 MG TABLET PO SCH (08:54)
[2018-06-22] MEDS: ASPIRIN EC 81 MG TABLET.DR PO SCH (08:54)
[2018-06-22] MEDS: METOPROLOL TARTRATE 25 MG TABLET PO SCH ×2 (08:54→20:40)
[2018-06-22] MEDS: ASCORBIC ACID 500 MG TABLET PO SCH (08:55)
[2018-06-22] MEDS: AMLODIPINE 10 MG TABLET PO SCH (08:55)
[2018-06-22] MEDS: risperiDONE 0.25 MG TABLET PO SCH ×3 (08:56→17:12)
[2018-06-22] MEDS: CLOTRIMAZOLE 1% CREAM 30 GM TUBE TOP SCH ×2 (08:59→17:12)
[2018-06-22] MEDS: BENZTROPINE MESYLATE 0.5 MG TABLET PO SCH (09:01)
--- NOTE | 2018-06-22 10:26 | NUR ---
Patient is alert and responsive with periods of confusion in stable condition. Continue on aspiration precaution maintained. Continue therapy for ADL and ambulation. INR 1.08 relayed to MD Armstrong. no new order. awaiting for urine culture result. renal JAMIN done this AM. Continue levaquin 500mg x5 days for UTI. vanessa color urine output. no blood clot noted. Continue blood sugar monitoring with sliding scale. no signs of hypo/hyperglycemia. will continue monitor
[2018-06-22] MEDS: INSULIN REGULAR, HUMAN 300 UNIT/3 ML VIAL SQ PRN ×2 (11:50→16:31)
--- NOTE | 2018-06-22 13:18 | NUR ---
INTERDISCIPLINARY TEAM CONFERENCE
[2018-06-22 16:31] VITALS: BP 120/75
[2018-06-22] MEDS: LEVOFLOXACIN 500 MG TABLET PO SCH (17:12)
[2018-06-22 19:07] LABS: BASOPHILS # (AUTO) 0.1 K/uL (0.0-8.0); BASOPHILS % (AUTO) 1.2 % (0.0-2.0); EOSINOPHILS # (AUTO) 0.3 K/uL (0.0-0.7); EOSINOPHILS % (AUTO) 3.6 % (0.0-7.0); HEMATOCRIT 32.6 % (36.7-47.1); HEMOGLOBIN 11.2 g/dL (12.5-16.3); LYMPHOCYTES # (AUTO) 2.7 K/uL (20.0-40.0); LYMPHOCYTES % (AUTO) 35.2 % (20.5-51.5); MEAN CORPUSCULAR HEMOGLOBIN 31.5 uug (23.8-33.4); MEAN CORPUSCULAR HGB CONC 34 g/dL (32.5-36.3); MEAN CORPUSCULAR VOLUME 91.9 fL (73.0-96.2); MONOCYTES # (AUTO) 0.7 K/uL (2.0-10.0); MONOCYTES % (AUTO) 8.8 % (0.0-11.0); NEUTROPHILS # (AUTO) 3.9 K/uL (1.8-8.9); NEUTROPHILS % (AUTO) 51.2 % (38.5-71.5); PLATELET COUNT (AUTO) 288 K/uL (152-348); RED BLOOD CELL COUNT(AUTO) 3.55 MIL/uL (4.06-5.63); WHITE BLOOD COUNT (AUTO) 7.6 K/uL (3.6-10.2)
--- NOTE | 2018-06-22 19:10 | NUR ---
Patient seen and examined by MD Heath urologist. no new order. MD Hua ordered blood chem for tomorrow. will continue monitor
[2018-06-22 19:23] LABS: CARBON DIOXIDE 30 mmol/L (21-32); CHLORIDE 103 mmol/L (98-107); CREATININE 1.7 mg/dL (0.6-1.3); GLUCOSE 136 mg/dL (74-106); POTASSIUM 3.4 mmol/L (3.5-5.1); UREA NITROGEN, BLOOD 22 mg/dL (7-18)
[2018-06-22 19:30] VITALS: BP 134/63
[2018-06-22] MEDS: DOCUSATE SODIUM 100 MG CAPSULE PO SCH (20:39)
[2018-06-22] MEDS: ATORVASTATIN 40 MG TABLET PO SCH (20:39)
[2018-06-22] MEDS: TAMSULOSIN HCL 0.4 MG CAP.SR.24H PO SCH (20:39)
[2018-06-22] MEDS: INSULIN GLARGINE,HUM 300 UNITS/3 ML CARTRIDGE SQ SCH (20:46)
[2018-06-23 04:00] VITALS: BP 142/68
--- NOTE | 2018-06-23 05:12 | NUR ---
quiet night. slept well most of the shift. aaox3-4 no acute distress noted. needs attended. VSS mcfarlane catheter draining vanessa urine. I & O monitor. fall precautions maintained.siderails up for safety.
[2018-06-23] MEDS: BLOOD SUGAR DIAGNOSTIC 1 EACH STRIP VI SCH ×4 (06:37→20:49)
[2018-06-23 08:04] VITALS: BP 150/72
[2018-06-23] MEDS: ACIDOPHILUS/BULGARICUS CHEW TAB PO SCH ×2 (08:31→17:14)
[2018-06-23] MEDS: ASPIRIN EC 81 MG TABLET.DR PO SCH (08:31)
[2018-06-23] MEDS: METOPROLOL TARTRATE 25 MG TABLET PO SCH ×2 (08:31→20:44)
[2018-06-23] MEDS: DULOXETINE 30 MG CAPSULE.DR PO SCH ×2 (08:31→13:06)
[2018-06-23] MEDS: risperiDONE 0.25 MG TABLET PO SCH ×3 (08:31→17:14)
[2018-06-23] MEDS: ASCORBIC ACID 500 MG TABLET PO SCH (08:31)
[2018-06-23] MEDS: MULTIVITAMINS,THERAPEUTIC TABLET PO SCH (08:32)
[2018-06-23] MEDS: BENZTROPINE MESYLATE 0.5 MG TABLET PO SCH (08:32)
[2018-06-23] MEDS: CLOTRIMAZOLE 1% CREAM 30 GM TUBE TOP SCH ×2 (08:32→17:14)
[2018-06-23] MEDS: AMLODIPINE 10 MG TABLET PO SCH (08:32)
[2018-06-23] MEDS: INSULIN REGULAR, HUMAN 300 UNIT/3 ML VIAL SQ PRN ×3 (12:06→20:52)
[2018-06-23] MEDS: ACETAMINOPHEN 325 MG TABLET PO PRN (13:06)
--- NOTE | 2018-06-23 14:03 | NUR ---
Received patient awake in bed in stable condition. Complaint of abdomen pain/discomfort. tylenol 650mg PRN given with good effect. Continue therapy for ADL activity. tolerated well. Pulse 47-52 in machine. 55 manually. went back to bed to rest. BP 147/65 SPO2- 98% not in distress. vanessa/reddish color urine output. MD aware. will continue monitor
[2018-06-23 16:26] VITALS: BP 127/64
[2018-06-23] MEDS: LEVOFLOXACIN 500 MG TABLET PO SCH (17:14)
--- NOTE | 2018-06-23 19:16 | NUR ---
Patient seen and examined by MD Heath with no new order. will continue monitor
[2018-06-23 20:14] VITALS: BP 117/59
[2018-06-23] MEDS: ATORVASTATIN 40 MG TABLET PO SCH (20:43)
[2018-06-23] MEDS: DOCUSATE SODIUM 100 MG CAPSULE PO SCH (20:43)
[2018-06-23] MEDS: TAMSULOSIN HCL 0.4 MG CAP.SR.24H PO SCH (20:44)
[2018-06-23] MEDS: INSULIN GLARGINE,HUM 300 UNITS/3 ML CARTRIDGE SQ SCH (20:55)
[2018-06-24 04:01] VITALS: BP 122/59
--- NOTE | 2018-06-24 05:10 | NUR ---
condition unchanged. aaox 2-3 VSS mcfarlane catheter draining yellow urine. Needs attended. I & O monitor No acute distress noted Kept comfortable. will monitor patient. Denies any pain nor any discomfort. Fall precautions maintained. Repositioned for comfort. Turned to sides. No BM noted this shift. Siderails up for safety.
[2018-06-24] MEDS: BLOOD SUGAR DIAGNOSTIC 1 EACH STRIP VI SCH ×4 (06:32→20:58)
[2018-06-24 08:06] VITALS: BP 135/60
[2018-06-24] MEDS: DULOXETINE 30 MG CAPSULE.DR PO SCH ×2 (10:07→14:24)
[2018-06-24] MEDS: AMLODIPINE 10 MG TABLET PO SCH (10:08)
[2018-06-24] MEDS: ACIDOPHILUS/BULGARICUS CHEW TAB PO SCH ×2 (10:08→17:34)
[2018-06-24] MEDS: MULTIVITAMINS,THERAPEUTIC TABLET PO SCH (10:08)
[2018-06-24] MEDS: ASPIRIN EC 81 MG TABLET.DR PO SCH (10:08)
[2018-06-24] MEDS: ASCORBIC ACID 500 MG TABLET PO SCH (10:08)
[2018-06-24] MEDS: risperiDONE 0.25 MG TABLET PO SCH ×3 (10:09→17:34)
[2018-06-24] MEDS: FUROSEMIDE 20 MG TABLET PO SCH (10:09)
[2018-06-24] MEDS: METOPROLOL TARTRATE 25 MG TABLET PO SCH ×2 (10:13→20:55)
[2018-06-24] MEDS: BENZTROPINE MESYLATE 0.5 MG TABLET PO SCH (10:14)
[2018-06-24] MEDS: CLOTRIMAZOLE 1% CREAM 30 GM TUBE TOP SCH ×2 (10:16→17:37)
[2018-06-24] MEDS ORDERED: DOSING PER PHARMACY-AMIKACIN IV XX PRN (12:15)
--- NOTE | 2018-06-24 12:40 | NUR ---
PHARMACY CLINICAL NOTES ( AMIKACIN DOSING) S: 72 YO M with DX of UTI; was empirically treated with Levaquin; C & S results back MD changed to Amikacin per RX. O: BUN/SCR 22/1.7; WBC 7.6 TEMP 97.3, CRCL 40.7 DOSING WT 83 KG (ABW); UC + for [employer] only sens. to Amikacin A/P: Will dose Amikacin as 300 mg q12h ; estimated peak of 17 and trough of 4 ; will order peak and trough around 3rd dose (steady state) and will adjust the dose as necessary. Will continue to follow up
[2018-06-24] MEDS: AMIKACIN 300 MG in IV DEXTROSE 5% 100 ML IV SCH (14:23)
[2018-06-24 16:12] VITALS: BP 125/61
--- NOTE | 2018-06-24 17:13 | NUR ---
STARTED ON CONTACT ISOLATION FOR PROVIDENCIA IN THE URINE. PER MD ORDER
[2018-06-24] MEDS: FINASTERIDE 5 MG TABLET PO SCH (17:38)
[2018-06-24] MEDS: INSULIN REGULAR, HUMAN 300 UNIT/3 ML VIAL SQ PRN ×2 (17:47→21:06)
--- NOTE | 2018-06-24 19:20 | NUR ---
Awake during initial rounds watching TV. Denies any pain/discomforts at this time. Contact isolation for urine maintained and observed. Safety measure and falll precaution maintained. Continue care as planned.
[2018-06-24 20:34] VITALS: BP 105/56
[2018-06-24] MEDS: DOCUSATE SODIUM 100 MG CAPSULE PO SCH (20:55)
[2018-06-24] MEDS: TAMSULOSIN HCL 0.4 MG CAP.SR.24H PO SCH (20:55)
[2018-06-24] MEDS: ATORVASTATIN 40 MG TABLET PO SCH (20:55)
[2018-06-24] MEDS: INSULIN GLARGINE,HUM 300 UNITS/3 ML CARTRIDGE SQ SCH (21:04)
[2018-06-25] MEDS: AMIKACIN 300 MG in IV DEXTROSE 5% 100 ML IV SCH ×2 (00:56→13:27)
[2018-06-25 05:02] VITALS: BP 120/66
--- NOTE | 2018-06-25 06:15 | NUR ---
Shift End Report: Sleep late watching TV. No complaint presented. No s/s of adverse reaction noted from Amikacin. HL intact and patent. No s/s of infiltration. No fall/injury. All needs attended and met. No significant event reported all night. Continue current rehab plan of care.
[2018-06-25] MEDS: BLOOD SUGAR DIAGNOSTIC 1 EACH STRIP VI SCH ×4 (06:38→20:51)
[2018-06-25 07:47] VITALS: BP 143/74
--- NOTE | 2018-06-25 08:58 | NUR ---
Received pt. in bed with eyes closed and comfortable. No s/sx of pain or discomfort. All pt. needs attended promptly. No s/sx of hypo/hyperglycemia, last BS @ 0630: 103 mg/dl. Pt. room in direct visual field from nursing station for close monitoring and fall precaution. On contact isolation precaution for providencia of urine. F/C draining with yellow/clear urine, no sediments. Safety measures in place, bed in lowest position, 2x upper SR up as enabler. Call light and all frequently used items in place. Will continue to monitor accordingly.
[2018-06-25] MEDS: MULTIVITAMINS,THERAPEUTIC TABLET PO SCH (09:33)
[2018-06-25] MEDS: FINASTERIDE 5 MG TABLET PO SCH (09:34)
[2018-06-25] MEDS: DULOXETINE 30 MG CAPSULE.DR PO SCH ×2 (09:34→12:11)
[2018-06-25] MEDS: METOPROLOL TARTRATE 25 MG TABLET PO SCH ×2 (09:34→20:46)
[2018-06-25] MEDS: AMLODIPINE 10 MG TABLET PO SCH (09:34)
[2018-06-25] MEDS: ASPIRIN EC 81 MG TABLET.DR PO SCH (09:34)
[2018-06-25] MEDS: CLOTRIMAZOLE 1% CREAM 30 GM TUBE TOP SCH ×2 (09:35→17:19)
[2018-06-25] MEDS: risperiDONE 0.25 MG TABLET PO SCH ×3 (09:35→16:43)
[2018-06-25] MEDS: ASCORBIC ACID 500 MG TABLET PO SCH (09:35)
[2018-06-25] MEDS: ACIDOPHILUS/BULGARICUS CHEW TAB PO SCH ×2 (09:36→16:38)
[2018-06-25] MEDS: BENZTROPINE MESYLATE 0.5 MG TABLET PO SCH (09:36)
[2018-06-25] MEDS: INSULIN REGULAR, HUMAN 300 UNIT/3 ML VIAL SQ PRN ×3 (12:21→20:53)
[2018-06-25 16:00] VITALS: BP 143/71
--- NOTE | 2018-06-25 16:48 | NUR ---
PHARMACY CLINICAL NOTES ( AMIKACIN DOSING) S: 72 YO M with DX of UTI; was empirically treated with Levaquin; C & S results back MD changed to Amikacin per RX. O: BUN/SCR 22/1.7(06/24); WBC 7.6(06/24) TEMP 97.9, DOSING WT 83 KG (ABW); UC + for [employer] only sens. to Amikacin A/P: Will continue Amikacin as 300 mg q12h ; estimated peak of 17 and trough of 4 ; Amikacin peak and trough was ordered today but peak got cancelled by mistake( ordered again with next dose for tomorrow at 0230). Trough is in the process. Will follow the level for further dosing.
--- NOTE | 2018-06-25 18:50 | NUR ---
EOS NOTE: No significant change during this shift. All pt. need attended and met. All due medications given as ordered. No c/o SOB or CP. Pt. participated with PT/OT tolerated well. Kept pt. clean and dry throughout this shift. Rt. lower back biopsy site dressing changed as ordered, no s/sx of infection at site. No s/sx of bleeding or hypo/hyperglycemia. F/C with yellow color urine output. On IV abx for UTI, no ASE noted. Received and relayed Amikacin trough result to in-house pharmacy to dose Amikacin, dose to be adjusted by pharmacist. Safety measures in place. Call light and all frequently used items in reach. Will endorse to oncoming shift.
[2018-06-25 20:09] VITALS: BP 137/68
[2018-06-25] MEDS: DOCUSATE SODIUM 100 MG CAPSULE PO SCH (20:45)
[2018-06-25] MEDS: TAMSULOSIN HCL 0.4 MG CAP.SR.24H PO SCH (20:46)
[2018-06-25] MEDS: ATORVASTATIN 40 MG TABLET PO SCH (20:46)
[2018-06-25] MEDS: INSULIN GLARGINE,HUM 300 UNITS/3 ML CARTRIDGE SQ SCH (20:55)
[2018-06-26] MEDS: AMIKACIN 300 MG in IV DEXTROSE 5% 100 ML IV SCH (00:54)
--- NOTE | 2018-06-26 04:48 | NUR ---
Contact isolation maintained for bacteria providencia in the urine. Patient has a mcfarlane catheter in placed draining yellow urine . I & O monitor. Patient on antibiotics, on Amikacin IVPB given at scheduled times, tolerated well. Amikacin trough done after the antibiotic @0230 am. Will monitor patient. fall precautions maintained. Siderails up for safety.
--- NOTE | 2018-06-26 06:04 | NUR ---
Lab called for a critical value of amikacin trough of 14.0 Will notify . Awaiting for call back (dr Crawford [employer]).
--- NOTE | 2018-06-26 06:29 | NUR ---
Dr Crawford aware scot patient's critical lab results and says let pharmacy be aware of it because they are the one dosing the amikacin.
[2018-06-26] MEDS: BLOOD SUGAR DIAGNOSTIC 1 EACH STRIP VI SCH ×4 (06:38→20:58)
[2018-06-26 06:59] VITALS: BP 131/68
--- NOTE | 2018-06-26 08:08 | NUR ---
SBAR report received from previous shift. Received pt. in bed with eyes closed and comfortable. No s/sx of pain or discomfort. All pt. needs attended promptly. No s/sx of hypo/hyperglycemia, last BS @ 0630: 83 mg/dl. Pt. room in direct visual field from nursing station for close monitoring and fall precaution. On contact isolation precaution for providencia of urine. F/C draining with yellow/clear urine, no sediments. Last Amikacin trough (14.0 CH) per previous shift. MD aware with pharmacy to make adjustment with dose. Safety measures in place, bed in lowest position, 2x upper SR up as enabler. Call light and all frequently used items in place. Will continue to monitor accordingly.
[2018-06-26] MEDS: ASPIRIN EC 81 MG TABLET.DR PO SCH (08:43)
[2018-06-26] MEDS: FUROSEMIDE 20 MG TABLET PO SCH (08:44)
[2018-06-26] MEDS: risperiDONE 0.25 MG TABLET PO SCH ×3 (08:44→16:46)
[2018-06-26] MEDS: MULTIVITAMINS,THERAPEUTIC TABLET PO SCH (08:44)
[2018-06-26] MEDS: AMLODIPINE 10 MG TABLET PO SCH (08:44)
[2018-06-26] MEDS: ACIDOPHILUS/BULGARICUS CHEW TAB PO SCH ×2 (08:44→16:46)
[2018-06-26] MEDS: DULOXETINE 30 MG CAPSULE.DR PO SCH ×2 (08:44→12:50)
[2018-06-26] MEDS: BENZTROPINE MESYLATE 0.5 MG TABLET PO SCH (08:44)
[2018-06-26] MEDS: FINASTERIDE 5 MG TABLET PO SCH (08:44)
[2018-06-26] MEDS: ASCORBIC ACID 500 MG TABLET PO SCH (08:44)
[2018-06-26] MEDS: CLOTRIMAZOLE 1% CREAM 30 GM TUBE TOP SCH ×2 (08:45→16:47)
[2018-06-26] MEDS: METOPROLOL TARTRATE 25 MG TABLET PO SCH ×2 (08:45→20:50)
[2018-06-26 09:15] VITALS: BP 150/95
--- NOTE | 2018-06-26 10:39 | NUR ---
PHARMACY CLINICAL NOTES ( AMIKACIN DOSING) S: 72 YO M with DX of UTI; was empirically treated with Levaquin; C & S results back MD changed to Amikacin per RX. O: BUN/SCR 22/1.7(06/22); WBC 7.6(06/22) TEMP 98.3, DOSING WT 83 KG (ABW); UC + for Horace Blackmon only sens. to Amikacin Amikacin peak 14.0 and trough 6.3 A/P: Since amikacin peak is under therapeutic range,will change dose to 600mg IV every 18hrs(first dose today at 1300) and draw peak and trough by 4th dose(not ordered yet) for expected peak 21.5 and trough 6.2. Will monitor daily. Addendum: 06/26/18 at 1226 by EVERETT MONTANO ADM CLARIFICATION: RX ORDERED PEAK TODAY AT 0230 BUT LAB CANCELLED AND RE-ORDERED UNDER TROUGH AT 0230. BUT ACTUAL VALUE IS PEAK
[2018-06-26] MEDS: INSULIN REGULAR, HUMAN 300 UNIT/3 ML VIAL SQ PRN ×3 (11:16→21:01)
[2018-06-26] MEDS: DEXTROSE 5% IV SCH (12:59)
[2018-06-26] MEDS: AMIKACIN IV SCH (12:59)
[2018-06-26 16:00] VITALS: BP 133/70
--- NOTE | 2018-06-26 18:32 | NUR ---
EOS NOTE: No significant change during this shift. All pt. need attended and met. All due medications given as ordered. No c/o SOB or CP. Kept pt. clean and dry throughout this shift. Rt. lower back biopsy site healing well, dressing changed as ordered. No s/sx of bleeding or hypo/hyperglycemia. F/C with yellow color urine output, no hematuria. Shaved pt. today and applied liberal moisturizer to facial area for severe dryness. Discussed dosing of Amikacin with pharmacist to clarify increase of dose, per pharmacist it is a safe dose per Trough and peak results. On IV abx for UTI, no ASE noted tolerated well. Safety measures in place. Call light and all frequently used items in reach. Will endorse to oncoming shift.
[2018-06-26 19:30] VITALS: BP 130/68
[2018-06-26] MEDS: ATORVASTATIN 40 MG TABLET PO SCH (20:48)
[2018-06-26] MEDS: DOCUSATE SODIUM 100 MG CAPSULE PO SCH (20:49)
[2018-06-26] MEDS: TAMSULOSIN HCL 0.4 MG CAP.SR.24H PO SCH (20:49)
[2018-06-26] MEDS: INSULIN GLARGINE,HUM 300 UNITS/3 ML CARTRIDGE SQ SCH (21:04)
[2018-06-27 04:30] VITALS: BP 146/81
--- NOTE | 2018-06-27 05:05 | NUR ---
slept well most of the shift. no acute distress noted. fall precautions maintained. siderails up for safety. needs attended. kept comfortable. mcfarlane catheter intact draining yellow urine. On contact isolation. on antibiotic therapy, tolerated well. No ill effects noted. VSS.
[2018-06-27] MEDS: AMIKACIN IV SCH (06:32)
[2018-06-27] MEDS: DEXTROSE 5% IV SCH (06:32)
[2018-06-27] MEDS: BLOOD SUGAR DIAGNOSTIC 1 EACH STRIP VI SCH ×4 (06:43→20:49)
[2018-06-27 07:30] VITALS: BP 138/66
[2018-06-27 07:42] LABS: CARBON DIOXIDE 30 mmol/L (21-32); CHLORIDE 105 mmol/L (98-107); CREATININE 1.3 mg/dL (0.6-1.3); GLUCOSE 77 mg/dL (74-106); POTASSIUM 3.2 mmol/L (3.5-5.1); UREA NITROGEN, BLOOD 21 mg/dL (7-18)
[2018-06-27] MEDS ORDERED: POTASSIUM CHLORIDE 20 MEQ TAB.PRT.SR PO ONE (08:45)
[2018-06-27] MEDS: ACIDOPHILUS/BULGARICUS CHEW TAB PO SCH ×2 (10:08→17:18)
[2018-06-27] MEDS: ASCORBIC ACID 500 MG TABLET PO SCH (10:09)
[2018-06-27] MEDS: FINASTERIDE 5 MG TABLET PO SCH (10:09)
[2018-06-27] MEDS: METOPROLOL TARTRATE 25 MG TABLET PO SCH ×2 (10:09→20:44)
[2018-06-27] MEDS: BENZTROPINE MESYLATE 0.5 MG TABLET PO SCH (10:09)
[2018-06-27] MEDS: AMLODIPINE 10 MG TABLET PO SCH (10:09)
[2018-06-27] MEDS: risperiDONE 0.25 MG TABLET PO SCH ×3 (10:09→17:15)
[2018-06-27] MEDS: DULOXETINE 30 MG CAPSULE.DR PO SCH ×2 (10:10→13:44)
[2018-06-27] MEDS: MULTIVITAMINS,THERAPEUTIC TABLET PO SCH (10:10)
[2018-06-27] MEDS: ASPIRIN EC 81 MG TABLET.DR PO SCH (10:10)
[2018-06-27] MEDS: CLOTRIMAZOLE 1% CREAM 30 GM TUBE TOP SCH ×2 (10:11→17:19)
--- NOTE | 2018-06-27 12:06 | NUR ---
PHARMACY CLINICAL NOTES ( AMIKACIN DOSING) S: 72 YO M with DX of UTI; was empirically treated with Levaquin; C & S results back MD changed to Amikacin per RX. O: BUN/SCR 21/1.3; WBC 7.6 TEMP 98.3, DOSING WT 83 KG (ABW); UC + for [employer] only sens. to Amikacin Amikacin peak 14.0 and trough 6.3 A/P: Will continue current new regimen of amikacin 600mg IV every 18hrs(3rd dose tomorrow early am at 0100) and draw peak and trough by 4th dose(not ordered yet) for expected peak 21.5 and trough 6.2. Will monitor daily.
[2018-06-27 16:00] VITALS: BP 143/72
[2018-06-27] MEDS: INSULIN REGULAR, HUMAN 300 UNIT/3 ML VIAL SQ PRN ×2 (17:17→20:52)
[2018-06-27] MEDS: ATORVASTATIN 40 MG TABLET PO SCH (20:43)
[2018-06-27] MEDS: TAMSULOSIN HCL 0.4 MG CAP.SR.24H PO SCH (20:43)
[2018-06-27] MEDS: DOCUSATE SODIUM 100 MG CAPSULE PO SCH (20:43)
[2018-06-27] MEDS: INSULIN GLARGINE,HUM 300 UNITS/3 ML CARTRIDGE SQ SCH (20:53)
[2018-06-27 22:17] VITALS: BP 137/64
[2018-06-28] MEDS: AMIKACIN IV SCH ×2 (00:42→19:00)
[2018-06-28] MEDS: DEXTROSE 5% IV SCH ×2 (00:42→19:00)
--- NOTE | 2018-06-28 03:58 | NUR ---
quiet night. contact isolation maintained. patient on IV antibiotic, amikacin 3g IV given at scheduled time. No ill effects noted. NO acute distress noted. will monitor patient. Tolerated po meds well. Denies any pain nor any discomfort. Murry catheter draining yellow urine. I & O monitor. VSS. Fall precautions maintained.
[2018-06-28 06:08] VITALS: BP 138/64
[2018-06-28] MEDS: BLOOD SUGAR DIAGNOSTIC 1 EACH STRIP VI SCH ×4 (06:43→20:44)
[2018-06-28 07:59] VITALS: BP 134/74
[2018-06-28] MEDS: ACIDOPHILUS/BULGARICUS CHEW TAB PO SCH ×2 (09:51→16:46)
[2018-06-28] MEDS: DULOXETINE 30 MG CAPSULE.DR PO SCH ×2 (09:51→12:24)
[2018-06-28] MEDS: MULTIVITAMINS,THERAPEUTIC TABLET PO SCH (09:51)
[2018-06-28] MEDS: AMLODIPINE 10 MG TABLET PO SCH (09:51)
[2018-06-28] MEDS: METOPROLOL TARTRATE 25 MG TABLET PO SCH ×2 (09:51→20:46)
[2018-06-28] MEDS: BENZTROPINE MESYLATE 0.5 MG TABLET PO SCH (09:52)
[2018-06-28] MEDS: FINASTERIDE 5 MG TABLET PO SCH (09:52)
[2018-06-28] MEDS: ASCORBIC ACID 500 MG TABLET PO SCH (09:52)
[2018-06-28] MEDS: ASPIRIN EC 81 MG TABLET.DR PO SCH (09:52)
[2018-06-28] MEDS: FUROSEMIDE 20 MG TABLET PO SCH (09:52)
[2018-06-28] MEDS: risperiDONE 0.25 MG TABLET PO SCH ×3 (09:52→16:46)
[2018-06-28] MEDS: INSULIN REGULAR, HUMAN 300 UNIT/3 ML VIAL SQ PRN ×4 (09:53→20:46)
[2018-06-28] MEDS: CLOTRIMAZOLE 1% CREAM 30 GM TUBE TOP SCH ×2 (09:53→16:46)
--- NOTE | 2018-06-28 10:00 | NUR ---
SBAR report received from previous shift. Received pt. in bed with eyes closed and comfortable. No s/sx of pain or discomfort. All pt. needs attended promptly. No s/sx of hypo/hyperglycemia, last BS @ 0630: 113 mg/dl. F/C draining with yellow/clear urine, no sediments. Safety measures in place, bed in lowest position, 2x upper SR up as enabler. Call light and all frequently used items in place. Will continue to monitor accordingly.
--- NOTE | 2018-06-28 12:23 | NUR ---
PHARMACY CLINICAL NOTES ( AMIKACIN DOSING) S: 72 YO M with DX of UTI; was empirically treated with Levaquin; C & S results back MD changed to Amikacin per RX. O: BUN/SCR 21/1.3 (06/27); WBC 7.6 (06/27), TEMP 97.8, DOSING WT 83 KG (ABW); UC + for [employer] only sens. to Amikacin Amikacin peak 14.0 and trough 6.3 A/P: Will continue current new regimen of amikacin 600mg IV every 18hrs(3rd dose tomorrow early am at 0100) and draw peak and trough by 4th dose(trough ordered for today at 1830 & peak today at 2030) for expected peak 21.5 and trough 6.2. Will review the level when available & adjust the dose if needed. Will follow.
[2018-06-28 15:49] VITALS: BP 133/63
--- NOTE | 2018-06-28 19:03 | NUR ---
EOS NOTE: No significant change during this shift. All pt. need attended and met. All due medications given as ordered. Kept pt. clean and dry throughout this shift. No s/sx of bleeding or hypo/hyperglycemia. F/C with yellow color urine output, no hematuria. Amikacin Trough drawn today at 1830 with peak scheduled at 2030. On IV abx given at 1900 for UTI, remained on contact isolation precaution for Providencia of urine. Safety measures in place. Call light and all frequently used items in reach. Will endorse to oncoming shift.
[2018-06-28 19:52] VITALS: BP 140/75
[2018-06-28] MEDS: ATORVASTATIN 40 MG TABLET PO SCH (20:43)
[2018-06-28] MEDS: TAMSULOSIN HCL 0.4 MG CAP.SR.24H PO SCH (20:43)
[2018-06-28] MEDS: DOCUSATE SODIUM 100 MG CAPSULE PO SCH (20:43)
[2018-06-28] MEDS: INSULIN GLARGINE,HUM 300 UNITS/3 ML CARTRIDGE SQ SCH (20:53)
--- NOTE | 2018-06-28 21:46 | NUR ---
Received pt at beginning of shift, AAO x 2-3. No acute distress noted. In bed, watching television. Verbally responsive and able to make needs known. Denies pain or discomfort at this time. Murry noted to be draining clear, yellow urine into bag. All due medications given as ordered, tolerated well. Mainting contact isolation. All safety measures and fall precautions maintained. Peak drawn at 2030. Call light and all personal belongings within reach. Will continue to monitor.
[2018-06-29 05:50] VITALS: BP 128/68
[2018-06-29] MEDS: BLOOD SUGAR DIAGNOSTIC 1 EACH STRIP VI SCH ×4 (06:31→21:15)
--- NOTE | 2018-06-29 08:30 | NUR ---
Received patient awake, alert x 1-2. Patent Murry catheter draining to dark yellow colored urine no blood noted. With intact IV line G 22 on left arm. Not in any form of distress. Not in apparent pain. Will continue to monitor.
[2018-06-29] MEDS: BENZTROPINE MESYLATE 0.5 MG TABLET PO SCH (08:35)
[2018-06-29] MEDS: risperiDONE 0.25 MG TABLET PO SCH ×3 (08:35→16:57)
[2018-06-29] MEDS: MULTIVITAMINS,THERAPEUTIC TABLET PO SCH (08:36)
[2018-06-29] MEDS: DULOXETINE 30 MG CAPSULE.DR PO SCH ×2 (08:36→12:25)
[2018-06-29] MEDS: METOPROLOL TARTRATE 25 MG TABLET PO SCH ×2 (08:36→20:56)
[2018-06-29] MEDS: ASPIRIN EC 81 MG TABLET.DR PO SCH (08:37)
[2018-06-29] MEDS: CLOTRIMAZOLE 1% CREAM 30 GM TUBE TOP SCH ×2 (08:37→16:58)
[2018-06-29] MEDS: ACIDOPHILUS/BULGARICUS CHEW TAB PO SCH ×2 (08:37→16:57)
[2018-06-29] MEDS: AMLODIPINE 10 MG TABLET PO SCH (08:37)
[2018-06-29] MEDS: ASCORBIC ACID 500 MG TABLET PO SCH (08:37)
[2018-06-29] MEDS: FINASTERIDE 5 MG TABLET PO SCH (08:37)
[2018-06-29 08:50] VITALS: BP 152/78
--- NOTE | 2018-06-29 09:51 | NUR ---
PHARMACY CLINICAL NOTES ( AMIKACIN DOSING) S: 72 YO M with DX of UTI; was empirically treated with Levaquin; C & S results back MD changed to Amikacin per RX. O: BUN/SCR 21/1.3 (06/27); WBC 7.6 (06/27), TEMP 97.8, DOSING WT 83 KG (ABW); UC + for [employer] only sens. to Amikacin Amikacin peak 24 and trough 4.1 on 06/27 at 2030 & 1830 A/P: Will continue same dose of amikacin 600mg IV every 18hrs for today. Last day is 06/30 per MD. Will follow.
[2018-06-29] MEDS: INSULIN REGULAR, HUMAN 300 UNIT/3 ML VIAL SQ PRN ×3 (12:25→21:10)
--- NOTE | 2018-06-29 12:47 | NUR ---
Up with occupational therapy, tolerating well. Able to tolerate diet. Took medications as prescribed.
--- NOTE | 2018-06-29 13:35 | NUR ---
INTERDISCIPLINARY TEAM CONFERENCE
[2018-06-29] MEDS: AMIKACIN IV SCH (13:37)
[2018-06-29] MEDS: DEXTROSE 5% IV SCH (13:37)
[2018-06-29 16:06] VITALS: BP 117/52
--- NOTE | 2018-06-29 19:00 | NUR ---
Received patient in bed. Alert and verbally responsive. Able to make needs known. On contact isolation for urine. All contact precautions taken. Denies any pain and discomfort at this time. No acute distress. No SOB. Murry catheter patent and intact. Draining vanessa colored urine. Kept clean and dry. IV site on left wrist. No s/s of infiltration. All needs attended to promptly. Call light within reach. Will continue to monitor.
[2018-06-29 19:30] VITALS: BP 132/71
[2018-06-29] MEDS: TAMSULOSIN HCL 0.4 MG CAP.SR.24H PO SCH (20:55)
[2018-06-29] MEDS: DOCUSATE SODIUM 100 MG CAPSULE PO SCH (20:55)
[2018-06-29] MEDS: ATORVASTATIN 40 MG TABLET PO SCH (20:55)
[2018-06-29] MEDS ORDERED: INSULIN GLARGINE,HUM 300 UNITS/3 ML CARTRIDGE SQ SCH (21:00)
[2018-06-30 04:00] VITALS: BP 137/77
[2018-06-30] MEDS: DEXTROSE 5% IV SCH (06:22)
[2018-06-30] MEDS: AMIKACIN IV SCH (06:22)
[2018-06-30] MEDS: BLOOD SUGAR DIAGNOSTIC 1 EACH STRIP VI SCH ×3 (06:30→16:38)
[2018-06-30 08:28] VITALS: BP 117/45
[2018-06-30] MEDS: BENZTROPINE MESYLATE 0.5 MG TABLET PO SCH (10:17)
[2018-06-30] MEDS: DULOXETINE 30 MG CAPSULE.DR PO SCH ×2 (10:18→13:10)
[2018-06-30] MEDS: ASPIRIN EC 81 MG TABLET.DR PO SCH (10:19)
[2018-06-30] MEDS: FUROSEMIDE 20 MG TABLET PO SCH (10:20)
[2018-06-30] MEDS: ACIDOPHILUS/BULGARICUS CHEW TAB PO SCH (10:20)
[2018-06-30] MEDS: risperiDONE 0.25 MG TABLET PO SCH ×2 (10:21→13:09)
[2018-06-30] MEDS: MULTIVITAMINS,THERAPEUTIC TABLET PO SCH (10:22)
[2018-06-30] MEDS: ASCORBIC ACID 500 MG TABLET PO SCH (10:22)
[2018-06-30] MEDS: CLOTRIMAZOLE 1% CREAM 30 GM TUBE TOP SCH (10:23)
[2018-06-30] MEDS: FINASTERIDE 5 MG TABLET PO SCH (10:24)
[2018-06-30 15:53] VITALS: BP 143/67
[2018-06-30] MEDS: AMLODIPINE 10 MG TABLET PO SCH (16:39)
[2018-06-30 16:40] VITALS: BP 143/67
[2018-06-30] MEDS: METOPROLOL TARTRATE 25 MG TABLET PO SCH (16:40)
--- NOTE | 2018-06-30 16:41 | NUR ---
storm her to pick him u Addendum: 06/30/18 at 1644 by Kinjal Moe RN STORM HERE TO TRANSPORT HIM TO [facility]. VSS. REPORT GIVEN TO TALIA ESCOBEDO. D/C ORDER ON FILE. SKIN PICS TAKEN OF L/R GROIN AND RIGHT BACK.
== END 2018-06-30 16:30 | DRG 56 ==
PROVIDERS: ADMIT Physical Medicine & Rehabilitation Pain Medicine; ATTEND Physical Medicine & Rehabilitation Pain Medicine
DX: I69.331 Monoplegia of upper limb following cerebral infarction affecting right dominant side (principal); G92 Toxic encephalopathy; N17.0 Acute kidney failure with tubular necrosis; D68.59 Other primary thrombophilia; I50.32 Chronic diastolic (congestive) heart failure; I13.0 Hypertensive heart and chronic kidney disease with heart failure and stage 1 through stage 4 chronic kidney disease, or unspecified chronic kidney disease; E46 Unspecified protein-calorie malnutrition; N02.9 Recurrent and persistent hematuria with unspecified morphologic changes; E11.22 Type 2 diabetes mellitus with diabetic chronic kidney disease; E11.65 Type 2 diabetes mellitus with hyperglycemia; N18.2 Chronic kidney disease, stage 2 (mild); Z91.81 History of falling; Z86.718 Personal history of other venous thrombosis and embolism; G89.29 Other chronic pain; I48.91 Unspecified atrial fibrillation; F32.9 Major depressive disorder, single episode, unspecified; N40.1 Benign prostatic hyperplasia with lower urinary tract symptoms; I69.398 Other sequelae of cerebral infarction; E66.9 Obesity, unspecified; Z68.31 Body mass index [BMI] 31.0-31.9, adult; N30.81 Other cystitis with hematuria; B96.89 Other specified bacterial agents as the cause of diseases classified elsewhere; E87.6 Hypokalemia; Z85.828 Personal history of other malignant neoplasm of skin; R29.6 Repeated falls; R53.1 Weakness; R33.8 Other retention of urine; Z16.24 Resistance to multiple antibiotics; E78.5 Hyperlipidemia, unspecified; F01.50 Vascular dementia, unspecified severity, without behavioral disturbance, psychotic disturbance, mood disturbance, and anxiety; K40.20 Bilateral inguinal hernia, without obstruction or gangrene, not specified as recurrent; M51.36 Other intervertebral disc degeneration, lumbar region; R13.10 Dysphagia, unspecified; Z79.01 Long term (current) use of anticoagulants; Z87.440 Personal history of urinary (tract) infections
CPT/HCPCS: 36415; 70030-TC; 73080; 76770; 83735; 84100; 85025; 85730; 87077; 87086; 92507; 92523; 92526; 92610; 97110; 97112; 97116; 97165; 97530; 97535; A4217; A4663; J0278; J1815; J7060